=== PATIENT | male | born 1950 | race Caucasian/White ===

== ENCOUNTER 2018-07-29 08:58 | Day surgery (SDC) | payer MEDICARE, OTHER, SELFPAY ==
[2018-07-29 09:42] VITALS: BP 141/85; PULSE 78; RESP 15; TEMP 36.3; O2SAT 98; BMI 41.1
[2018-07-29] MEDS: SODIUM CHLORIDE 0.9% 1,000 ML 200 ML IV (09:55)
--- NOTE | 2018-07-29 11:13 | P.HP_ITS ---
History of Present Illness Date Patient Seen: 07/29/18 Time Patient Seen: 11:11 Chief complaint: [id number] SCREENING COLONOSCOPY Narrative: Patient is gentleman whose last colonoscopy was 10 years ago. He thinks he had a polyp removed at his 1st colonoscopy prior to that. He is not certain the nature of the pathology except it was benign. No family history of colon cancer. Patient History Medical History Obstructive sleep apnea of adult (Chronic) Morbid obesity with BMI of 40.0-44.9, adult (Chronic) Hypertension (Chronic) Knee pain, chronic (Chronic) Type 2 diabetes mellitus (Chronic) Surgical History History of gastric bypass (Acute) History of hernia repair (Acute) Social History marital status: details: salma Overton, lives in [place] household members: spouse lives independently: Yes caregiver/support person: No housing: house Family & Social History Social History: household members spouse lives independently Yes caregiver/support person No Meds Home Medications Medication Instructions Recorded Confirmed Type Respironics [employer] Auto CPAP #1 ea 06/10/18 History Multi-Day with Iron 1 tab PO DAILY 07/29/18 07/29/18 History acetaminophen [Tylenol] 325 mg PO BID 07/29/18 07/29/18 History cholecalciferol (vitamin D3) 5,000 unit PO DAILY 07/29/18 07/29/18 History [Vitamin D3] cyanocobalamin (vitamin B-12) 2,500 mcg SUBLINGUAL WEEKLY 07/29/18 07/29/18 History [Vitamin B-12] lisinopril-hydrochlorothiazide 1 tab PO DAILY 07/29/18 07/29/18 History ranitidine HCl 150 mg PO BID 07/29/18 07/29/18 History sitagliptin-metformin [Janumet] 1 tab PO BID 07/29/18 07/29/18 History tamsulosin 0.4 mg PO DAILY 07/29/18 07/29/18 History Allergies Allergy/AdvReac Type Severity Reaction Status Date / Time No Known Drug Allergies Allergy Verified 07/29/18 09:33 Review of Systems Review of Systems All systems reviewed & are unremarkable except as noted in HPI and below Cardiovascular Comments: Has hypertension and elevated cholesterol Genitourinary Comments: Frequency Musculoskeletal Comments: Knee arthritis Endocrine Comments: Type 2 diabetes with morbid obesity sugar this morning is 136 Exam Vital Signs (past 8 hours): - 07/29/18 09:42 Temperature 97.3 F L Pulse Rate 78 Respiratory Rate 15 Blood Pressure 141/85 H Pulse Oximetry 98 Oxygen Delivery Method Room Air Narrative Exam Narrative: Obese gentleman no apparent distress. Eyes nonicteric. Lungs clear to auscultation. Heart regular rate and rhythm without murmur gallop. Abdomen is morbidly protuberant soft. There is a midline scar with a broad scar. Abdomen is nontender no obvious mass. Alert and oriented x3. Assessment & Plan Assessment & Plan narrative: Patient is a gentleman for screening colonoscopy. I have discussed the procedure and the rationale with the patient including risks of bleeding, perforation which would necessitate a major operation, failure to find remove all lesions and the potential to tattoo. They appeared to understand and wished to proceed.
--- NOTE | 2018-07-29 11:13 | PM.PREOP ---
Pre-operative Note Interval Note History & Physical reviewed/Exam performed by Physician: Yes Changes to H&P: No
[2018-07-29] MEDS: fentaNYL 250 MCG/5 ML INJ IV (11:25)
[2018-07-29] MEDS: MIDAZOLAM 5 MG/5 ML VIAL IV (11:26)
--- NOTE | 2018-07-29 11:44 | PM.OP.ENDO ---
Operative Date/Time/Diagnoses Date of procedure: 07/29/18 Time of procedure: 11:44 Pre-op diagnosis: Screening exam. Last exam 10 years ago. Post-op diagnosis: same (Normal examination except scarring on internal hemorrhoids. No active disease.) Procedure & Clinicians Study performed: Colonoscopy Same procedure as scheduled: Yes Indications: Screening Surgeon: Ricco Burns Procedure Notes SCOAP/Timeout: Performed Procedure in detail: The patient was placed in the left lateral decubitus position and underwent IV sedation directed by the surgeon consisting of fentanyl and Versed. Digital exam was unremarkable. The scope was inserted and advanced through the rectum into the sigmoid, descending, transverse, and ascending colon. Pressure was applied we made our way into the cecum. The cecum was reached identified by the ileocecal valve and the appendiceal opening. Just distal to the ileocecal valve there was a submucosal mass that was soft and pliable clinically consistent with lipoma. The scope was gradually brought out. No Polyps were found. The scope ultimately was retroflexed in the rectum. The appearance was remarkable for mild hemorrhoidal disease with scarring. No active ulcerations.. The scope was removed and the patient tolerated the procedure well. Prep was very good Scope withdrawal time: 7 min Sedation minutes: 20 Findings: internal hemorrhoids (Small) and other findings (Lipoma a near the cecum) Specimen(s): none sent Complications: none Recommendations: Colonscopy in 10 years Follow up: as needed Disposition: PACU
[2018-07-29 11:47] VITALS: BP 129/72; PULSE 94; RESP 16; TEMP 36.3; O2SAT 96
[2018-07-29 11:52] VITALS: BP 128/72; PULSE 79; RESP 14; O2SAT 96
[2018-07-29 11:57] VITALS: BP 123/65; PULSE 82; RESP 16; TEMP 36.3; O2SAT 97
== END 2018-07-29 12:17 | disposition home or self-care (01) ==
PROVIDERS: Family Provider Physician Assistant; PCP Physician Assistant; Visit Provider Specialist
PROC: 0DJD8ZZ Inspection of Lower Intestinal Tract, Via Natural or Artificial Opening Endoscopic (ICD-10-PCS; CPT 45378; principal; 2018-07-29 10:45)
DX: Z12.11 Encounter for screening for malignant neoplasm of colon (principal); K64.8 Other hemorrhoids; D17.79 Benign lipomatous neoplasm of other sites; G47.33 Obstructive sleep apnea (adult) (pediatric); I10 Essential (primary) hypertension; E11.9 Type 2 diabetes mellitus without complications; E66.01 Morbid (severe) obesity due to excess calories; Z68.41 Body mass index [BMI] 40.0-44.9, adult
CPT/HCPCS: G0121; 99152; J2250; J3010

== ENCOUNTER → 2021-09-08 07:41 | Outpatient (CLI) | payer MEDICARE, OTHER, SELFPAY ==
[2021-09-08 08:36] LABS: Add Manual Diff / Slide Review NO; Basophils Absolute Auto 0 /uL (0-100); Basophils Percent Auto 0.2 % (0-2); Eosinophils Absolute Auto 400 /uL (0-450); Eosinophils Percent Auto 6.6 % (2-4); Hematocrit 39.5 % (41-53); Hemoglobin 13.3 g/dL (13.5-17.5); Lymphocytes Absolute Auto 1300 /uL (1100-4500); Mean Corpuscular HGB Conc 33.6 % (30-36); Mean Corpuscular Hemoglobin 30.6 PG (26-34); Mean Corpuscular Volume 91.1 fL (80-100); Monocytes Absolute Auto 500 /uL (0-900); Monocytes Percent Auto 8.1 % (3-14); Neutrophils Absolute Auto 3500 /uL (1500-7000); Neutrophils Percent Auto 62.1 % (50-75); Platelet Count 283 X10^3/uL (150-400); Red Blood Cell Count 4.33 X10^6/uL (4.5-5.9); Red Cell Distribution Width 14.5 % (11.6-14.8); White Blood Cell Count 5.7 X10^3/uL (4.5-11.0)
[2021-09-08 08:52] LABS: BUN Creatinine Ratio 18.5 (6-22); Blood Urea Nitrogen 17 mg/dL (9-20); Calcium 9.3 mg/dL (8.4-10.2); Carbon Dioxide 31 mmol/L (22-32); Chloride 101 mmol/L (98-107); Estimated Glomerular Filt Rate > 60 mL/min (>60); Glucose 142 mg/dL (80-110); HEMOLYSIS < 15 (0-50); Potassium 4.4 mmol/L (3.4-5.1); Sodium 140 mmol/L (137-145)
[2021-09-08 08:57] LABS: Hemoglobin A1C% w Est Avg Glu 6.6 % (4.0-6.0)
[2021-09-08 10:28] LABS: Appearance Urine UA CLEAR; Bilirubin Urine UA NEGATIVE (NEGATIVE); Color Urine UA YELLOW; Glucose Urine UA NEGATIVE (Negative); Ketones Urine UA NEGATIVE (NEGATIVE); Leukocyte Esterase Urine UA 1+ (NEGATIVE); Nitrite Urine UA NEGATIVE (Negative); Occult Blood Urine UA 1+ (Negative); Protein Urine UA NEGATIVE (Negative); pH Urine UA 6.5 (4.5-8.0)
[2021-09-08 11:07] LABS: RBC Urine 5-10/HPF (0-5/HPF); WBC Urine 1-5/HPF (0-5/HPF)
[2021-09-08 11:08] LABS: Bacteria Urine Few (2-10); Culture Indicated Urine Specimen Cultured
== END ==
PROVIDERS: Family Provider Physician Assistant; Referring Provider Orthopaedic Surgery; Visit Provider Orthopaedic Surgery
DX: Z01.818 Encounter for other preprocedural examination (principal); R73.9 Hyperglycemia, unspecified; Z01.812 Encounter for preprocedural laboratory examination; N39.0 Urinary tract infection, site not specified
CPT/HCPCS: 36415; 80048; 81001; 83036; 85025; 87086; 93005; 93010

== ENCOUNTER → 2021-12-01 09:53 | Outpatient (CLI) | payer MEDICARE, OTHER, SELFPAY ==
[2021-12-01 10:28] LABS: COVID19 -Nasal RAPID Negative (Negative)
== END ==
PROVIDERS: Family Provider Physician Assistant; PCP Nurse Practitioner Family; Referring Provider Physician Assistant Medical; Visit Provider Orthopaedic Surgery
DX: Z20.822 Contact with and (suspected) exposure to COVID-19 (principal); Z11.59 Encounter for screening for other viral diseases
CPT/HCPCS: 87635; C9803

== ENCOUNTER 2021-12-03 14:14 | Observation (INO) | payer MEDICARE, OTHER, SELFPAY ==
[2021-11-26 08:47] VITALS: BMI 39.2
[2021-12-02] VITALS (11 sets, daily range): BP systolic 106–149; BP diastolic 46–78; PULSE 69–90; RESP 14–24; TEMP 36.1–36.9; O2SAT 94–100; BMI 39.2
--- NOTE | 2021-12-02 07:42 | DI.RAD.S_ITS ---
PROCEDURE: XR PELVIS 1-2V INDICATIONS: Left RY, posterior approach INNER OP TECHNIQUE: Intra-operative view of the pelvis and hip acquired. COMPARISON: None. FINDINGS: Bones: Intraoperative devices prior to placement of arthroplasty prostheses are in expected positions. No fractures or suspicious bony lesions. Soft tissues: Overlying surgical retractors are present, along with other intraoperative changes. IMPRESSION: Left hip intra device in expected position during placement of left hip arthroplasty. Dictated by: Samir MAK Interpreted: Corina Castillo MD on 12/02/2021 at 15:41 Transcribed by: CHIDI on 12/02/2021 at 15:41 Approved by: Corina Castillo M.D. on 12/04/2021 at 7:35
[2021-12-02] MEDS: VANCOMYCIN 1,000 MG/200 ML PIGGYBACK 200 MG IV (09:55)
[2021-12-02] MEDS: ACETAMINOPHEN 325 MG TABLET 975 MG PO (10:00)
[2021-12-02] MEDS: LACTATED RINGERS 1,000 ML 84 ML IV (10:04)
[2021-12-02] MEDS: CELECOXIB 200 MG CAPSULE PO (10:07)
--- NOTE | 2021-12-02 10:30 | PM.PREOP ---
Pre-operative Note COVID-19 COVID-19 status: Negative Interval Note History & Physical reviewed/Exam performed by Physician: Yes Changes to H&P: No
--- NOTE | 2021-12-02 10:31 | PM.OP.1 ---
Operative Date/Time/Diagnoses Date of procedure: 12/02/21 Time of procedure: 11:20 Pre-op diagnosis: LEFT hip OA Post-op diagnosis: same Procedure & Clinicians Same procedure as scheduled: Yes Anesthesia Type: General and Spinal Operative Notes Findings: Severe left hip osteoarthritis, adequate stability, adequate bone Closure Type: primary Specimen(s): none sent Prosthetic devices, grafts, tissues, transplants, or devices: Ledesma and nephew 62 mm cup R3, neutral 40 liner, 40 mm +0 cobalt chrome head, size 10 standard offset anthology Applied: drain(s) Estimated Blood Loss (mL): 250 Blood products transfused: none Procedure in detail: The patient was seen in the pre-operative area, where the patient identified the left hip as the operative site and this was marked with my initials. The patient received pre-operative antibiotics and was taken to the operating room and placed on the operative table in the right lateral decubitus position after satisfactory anesthesia. A boiler operator helper out was performed. The left leg was prepared from the ankle to the iliac crest with ChloroPrep in the usual fashion and draped through sterile drapes. The hip was approached through an approximately 20 cm incision centered over the greater trochanter and curving gently posteriorly as it went proximally. This was carried sharply to the fascia chauncey, which was divided and retracted with a self retaining retractor. The trochanteric bursa was excised with care being taken to avoid the sciatic nerve, which was identified and protected throughout the case. The short external rotators were incised and the capsulomuscular flap was raised and tagged for later repair. The hip was dislocated, and a femoral neck osteotomy performed approximately 15 mm above the lesser trochanter. Retractors were placed around the femur. The canal was opened with a box cutting osteotome, followed by a T handled reamer and a lateralizing reamer. The chili pepper broach was then used, followed by sequential broaching until there was good stability of the broach in the femur. Retractors were placed to expose the acetabulum. The labrum and central soft tissues were removed. Reaming was performed initially going up in 2 mm increments, then 1 mm increments until good bite was obtained with an odd sized reamer. The cup 1 mm larger than the last reamer was then inserted using the appropriate anteversion guides. A trial neutral liner was placed. The broach was placed in the canal. A trial head and neck were then placed and the hip relocated and checked for leg length and stability. An intraoperative film confirmed the component position and no evidence of fracture. The patient was stable in the position of sleep, of squatting, and could be put through a range of motion with 45 degrees internal rotation without dislocation. At 90 degrees flexion, internal rotation to 70 degrees was possible before dislocation. This was felt to be satisfactory and the appropriate components were opened, and the trials were removed. The acetabular liner was impacted into position. The final stem was then impacted into the prepared femoral canal. A brief Betadine soak was performed while trialing with head options. The hip was meticulously irrigated with normal saline. Finally the femoral head was impacted onto the stem. The acetabulum was cleared of all material and the hip relocated one final time. The capsulomuscular flap was then repaired to the greater trochanter though an awl hole using the tag sutures. The short external rotators were repaired with a nonabsorbable suture. A deep drain was placed and brought out anteriorly. The fascia chauncey was closed with Vicryl. The subcutaneous layer was closed with barbed sutures and SteriStrips. An Aquacel Ag dressing was applied and the patient was taken to recovery having tolerated the procedure well. Complications: none Post-operative Condition: stable Disposition: Acute Care Plan for aftercare: The patient will be maintained on a standard total hip replacement protocol with weight bearing as tolerated and posterior hip precautions. The patient will receive Aspirin and sequential compression devices for DVT prophylaxis. The patient will be discharged home when safe for the home environment.
[2021-12-02] MEDS: TRANEXAMIC ACID 1,000 MG VIAL 2000 MG INJ (11:20)
[2021-12-02] MEDS: CEFAZOLIN 2 GM/20 ML SYRINGE IV ×2 (11:22→18:22)
[2021-12-02] MEDS: EPINEPHrine 1 MG/ML TOP (11:50)
--- NOTE | 2021-12-02 11:53 | SUR.OPER ---
Lateral with right side down on padded OR bed. Gel axillary roll. Arms secured on padded armboard with pillow supporting top arm. Padded hip positioner braces x4 - anterior and posterior chest and pelvis. Additional gel pad used anterior pelvis. Gel pad under bottom leg from knee to foot and secured with tape over sheet. Directed and approved by surgeon. Shoulder and neck alignment approved by anesthesia
[2021-12-02] MEDS: BUPIVACAINE 0.5% (PF) 30 ML, EPINEPHrine 0.15 MG INJ (11:59)
[2021-12-02] MEDS: BUPIVACAINE LIPOSOME 266 MG/20 ML VIAL INJ (12:45)
--- NOTE | 2021-12-02 13:30 | DI.RAD.S_ITS ---
PROCEDURE: XR HIP W PEL IF DONE LT 2V INDICATIONS: POST OP LEFT HIP TECHNIQUE: 2 view(s) of the hip acquired. COMPARISON: Same-day pelvis radiograph, 09/05/2021 radiograph FINDINGS: Bones: Patient is status post left hip arthroplasty, with hardware components in expected positions. The hip joint appears congruent. The visualized bony structures appear intact. Soft tissues: Overlying postoperative changes are noted. No suspicious soft tissue densities. Surgical clips project over the groin. IMPRESSION: Status post left hip arthroplasty with expected postoperative changes. Dictated by: Pablito Frederick M.D. on 12/02/2021 at 15:50 Approved by: Pablito Frederick M.D. on 12/02/2021 at 15:52
--- NOTE | 2021-12-02 13:40 | SUR.PHASEI ---
Yadi drain not displaying a flashing green light as expected, only an orange flashing light. Had OR staff and IZAIAH Riojas for Dr Ledesma assess drain. Per Shine, YADI drain possibly is not sealing well due to the presence of a hemovac drain. No new orders but IZAIAH Riojas states he will assess patient when he is transferred to the inpatient room. Patient in no distress.
[2021-12-02] MEDS: LACTATED RINGERS 1,000 ML 125 ML IV ×2 (14:39→23:15)
--- NOTE | 2021-12-02 15:01 | PC.NURSE ---
Pt to room 218 via bed from PACU. Pt awake, alert, and oriented. Denies pain, nausea, or shortness of breath. States he still has numbness to his left leg although he is able to wiggle his toes and has cold sensation to his left hip surgical site where the ice pack has been place. YADI dsg is intact but is blinking orange-checked dsg and no obvious leak areas. HV in place and compressed. BG checked -208. Pt is having a snack. Oriented to room, call light, bed controls and tv controls. Urinal at the bedside. IVF infusing as ordered. SCD's on and running. VS are stable. Contacted RT to set up Pt CPAP and they performed IS training as well. Pt bed alarm is on and he is aware that he is to call for assistance as needed and to not get up without help.
[2021-12-02] MEDS: OXYCODONE IR 5 MG TABLET PO ×2 (16:54→21:27)
[2021-12-02] MEDS: SITAGLIPTIN 50 MG TABLET PO (16:55)
[2021-12-02] MEDS: METFORMIN HCL 500 MG TABLET 1000 MG PO (16:55)
[2021-12-02] MEDS: IBUPROFEN 400 MG TABLET PO ×2 (18:21→23:16)
[2021-12-02] MEDS: ACETAMINOPHEN 325 MG TABLET 650 MG PO ×2 (18:22→23:15)
--- NOTE | 2021-12-02 18:50 | PC.NURSE ---
Ortho: Received from PACU. Minimal pain. YADI not functioning on arrival. Light is flashing orange. Pamela SHELBY assessed same, did some retaping. Still flashing orange. IZAIAH Agustin here who looked at site. He will bring a new set up tomorrow for the YADI and change it then. Pt is able to move toes. Oxy given for pain and effective. Has been able to void x1 since surgery. neurovascular intact. Brisk cap refill, PPP. Tolerated dinner w/out problems.
[2021-12-02] MEDS: DOCUSATE 100 MG CAPSULE PO (21:27)
[2021-12-02] MEDS: ASPIRIN EC 81 MG TABLET PO (21:27)
[2021-12-02] MEDS: PANTOPRAZOLE DR 20 MG TABLET PO (21:27)
[2021-12-02] MEDS: ATORVASTATIN 20 MG TABLET PO (21:27)
[2021-12-02] MEDS: TAMSULOSIN 0.4 MG CAPSULE PO (21:27)
[2021-12-03 00:21] VITALS: BP 98/55; PULSE 89; RESP 18; TEMP 36.6; O2SAT 97
[2021-12-03 04:00] VITALS: BP 103/45; PULSE 74; RESP 18; TEMP 36.6; O2SAT 96
[2021-12-03] MEDS: CEFAZOLIN 2 GM/20 ML SYRINGE IV (04:00)
[2021-12-03 06:31] LABS: Hematocrit 28.6 % (41-53); Hemoglobin 9.7 g/dL (13.5-17.5)
[2021-12-03] MEDS: ACETAMINOPHEN 325 MG TABLET 650 MG PO ×2 (06:34→13:10)
[2021-12-03] MEDS: IBUPROFEN 400 MG TABLET PO ×2 (06:34→13:00)
--- NOTE | 2021-12-03 07:30 | P.DS_ITS ---
History of Present Illness History of Present Illness Date Patient Seen: 12/03/21 Time Patient Seen: 07:30 Chief complaint: Left hip pain Narrative: Left hip pain is been mild. Denies fever or chills. No nausea vomiting. Patient urinating on his own. Patient has his home for assistance. Discharge Providers Provider Discharge Date: 12/03/21 Primary care physician: LUIS FERNANDO Lambert Consults: 12/02/21 07:42 Consult to Anesthesiology Routine Comment: Consulting Provider: Anesthesiologist Reason for consultation: Regional block for post operative pain control 12/02/21 10:00 Consult to Respiratory Therapy Evaluate & Treat Comment: Physician Instructions: Evaluate and treat 12/02/21 13:52 Consult to Discharge Planning Routine Comment: Consult to Physical Therapy Evaluate & Treat Comment: Physician Instructions: post op RY protocol Consult to Respiratory Therapy Evaluate & Treat Comment: Physician Instructions: Evaluate and treat Discharge provider: Shine Agustin PA-C Summary Hospital Course Discharge Diagnosis: Left hip osteoarthritis Hospital Course: Same procedure as scheduled: Yes Anesthesia Type: General and Spinal Operative Notes Findings: Severe left hip osteoarthritis, adequate stability, adequate bone Closure Type: primary Specimen(s): none sent Prosthetic devices, grafts, tissues, transplants, or devices: Ledesma and nephew 62 mm cup R3, neutral 40 liner, 40 mm +0 cobalt chrome head, size 10 standard offset anthology Applied: drain(s) Estimated Blood Loss (mL): 250 Blood products transfused: none Procedure in detail: Patient admitted to the hospital for left total hip arthroplasty, posterior approach. Patient consented to the same. Patient underwent left total hip arthroplasty December 02, 2021. Patient back in his room recovering well as in stable condition. Patient will be discharged home today after physical therapy if safe for home environment. Status at Discharge Cognitive/behavioral status at discharge: at baseline, oriented Functional status at discharge: uses cane/walker Overall status at discharge: patient is progressing back to baseline Exam Vital Signs (past 8 hours): - 12/03/21 00:21 12/03/21 04:00 Temperature 97.9 F 97.9 F Pulse Rate 89 74 Respiratory Rate 18 18 Blood Pressure 98/55 L 103/45 L Pulse Oximetry 97 96 Oxygen Flow Rate 0 0 Oxygen Delivery Method Room Air Oxygen Flow Rate 0 Narrative Exam Narrative: 71-year-old male resting comfortably in bed no apparent distress. Britney dressing is on and functioning. Dressing is Clean, dry, intact.. Motor functions intact bilateral lower extremities. Sensation grossly intact to light touch bilateral lower extremities. Const General: cooperative and comfortable Resp Effort & Inspection: normal respiratory effort and able to speak in complete sentences Objective Labs Result Diagrams: 12/03/21 06:25 Labs: Laboratory Results - last 24 hr 12/03/21 06:25 Hgb 9.7 L Hct 28.6 L PFSH Medical History Diabetes Diminished hearing Easy bruisability GERD (gastroesophageal reflux disease) HLD (hyperlipidemia) Hypertension Knee pain, chronic Morbid obesity with BMI of 40.0-44.9, adult Obesity (BMI 30-39.9) Obstructive sleep apnea of adult Osteoarthritis Peptic ulcer (2006) Sinus drainage Type 2 diabetes mellitus Surgical History H/O vasectomy (1977) History of gastric bypass (1989) History of hernia repair History of orthopedic surgery History of surgery (2010) Hx of cardiac cath (2013) Hx of cholecystectomy (1989) Hx of tonsillectomy Social History marital status: details: salma Overton, lives in [place] household members: spouse lives independently: Yes caregiver/support person: No housing: house Smoking Status: Former smoker alcohol intake: former Discharge Assessment & Plan Assessment and Plan Assessment: Patient progressing as expected status post left total hip arthroplasty, posterior approach Plan of Treatment: Mobilize with physical therapy Weight-bearing as tolerated with posterior hip precautions Multimodal pain management Disposition home after physical therapy if safe for home environment. Discharge Plan Discharge Plan Patient Disposition: Home Discharge orders & Medications Discharge Orders: Discharge (Order); Ordered 12/03/21 Ordered By: Shine Agustin Prescriptions: New acetaminophen 325 mg Tablet 650 mg PO Q6HR Qty: 60 0RF aspirin 81 mg Tablet,Delayed Release (Dr/Ec) 81 mg PO BID Qty: 60 0RF ibuprofen 400 mg Tablet 400 mg PO Q6HR Qty: 60 0RF docusate sodium 100 mg Capsule 100 mg PO BID Qty: 20 0RF oxycodone 10 mg Tablet 10 mg PO Q3HR PRN (Reason: Pain, Severe (7-10)) Qty: 60 0RF Continued (DME) [employer] AirSense Auto CPAP Qty: 1 Dose Instruction: As directed Label Comments: Pressure: 8 - 16 cmH2O DME: [employer] Rx Instructions: As directed cyanocobalamin (vitamin B-12) [Vitamin B-12] 2,500 mcg Tablet, Sublingual 2,500 mcg SUBLINGUAL WEEKLY tamsulosin 0.4 mg Capsule 0.4 mg PO BEDTIME lisinopril-hydrochlorothiazide 10-12.5 mg Tablet 1 tab PO DAILY Janumet 50-1,000 mg Tablet 1 tab PO BID cholecalciferol (vitamin D3) [Vitamin D3] 5,000 unit Tablet 5,000 unit PO DAILY loperamide 2 mg Tablet 2 mg PO DAILY PRN (Reason: Diarrhea) Rx Instructions: administer after each loose stool until symptoms controlled; do not exceed 8 mg per 24 hrs lidocaine 5 % Adhesive Patch,Medicated 1 patch TOPICAL DAILY Rx Instructions: leave on most painful area for up to 12 hrs ferrous sulfate 324 mg (65 mg iron) tablet,delayed release (DR/EC) 324 mg PO DAILY atorvastatin 20 mg tablet 20 mg PO DAILY omeprazole 20 mg capsule,delayed release(DR/EC) 20 mg PO BEDTIME Discontinued acetaminophen [Tylenol] 325 mg Tablet 325 mg PO BID diclofenac sodium [Arthritis Pain (diclofenac)] 1 % gel 2 g topical QID PRN (Reason: Pain) Rx Instructions: apply to single elbow, wrist or hand; for hand includes palm/fingers/back of hand Follow up/Referrals: Janet Garcia ARNP [Primary Care Provider] - Cierra Ledesma MD [Physician] - (2 weeks) Diet/Activity/Treatments Diet: Diet as Tolerated Activity: Weight-bearing as tolerated, posterior hip precautions Skin/Wound/Dressing Care Report to your healthcare provider any signs of infection, such as:: chills, fever, increased pain, unusual drainage and unusual redness Dressing: Britney dressing instructions reviewed. Keep clean and dry. Visit Report/Discharge Packet Instructions: DI for Hip Replacement Stand Alone Forms: Surgery Discharge Discharge Data Primary Care Provider: Janet Garcia Attending Provider: Cierra Ledesma Quality VTE Deep Vein Thrombosis/Pulmonary Embolism Present on Admission: No
[2021-12-03 08:00] VITALS: BP 111/47; PULSE 78; RESP 16; TEMP 36.4; O2SAT 98
[2021-12-03] MEDS: OXYCODONE IR 5 MG TABLET PO (08:30)
[2021-12-03 08:31] VITALS: BP 111/47
[2021-12-03] MEDS: lisinopriL 10 MG TABLET PO (08:31)
[2021-12-03] MEDS: FERROUS SULFATE 325 MG TABLET PO (08:32)
[2021-12-03] MEDS: ASPIRIN EC 81 MG TABLET PO (08:32)
[2021-12-03] MEDS: DOCUSATE 100 MG CAPSULE PO (08:32)
[2021-12-03] MEDS: hydroCHLOROthiazide 25 MG TABLET 12.5 MG PO (08:32)
[2021-12-03] MEDS: SITAGLIPTIN 50 MG TABLET PO (08:32)
[2021-12-03] MEDS: METFORMIN HCL 500 MG TABLET 1000 MG PO (08:32)
[2021-12-03] MEDS: CHOLECALCIFEROL (VITAMIN D3) 5,000 UNIT TABLET 5000 UNIT PO (08:41)
--- NOTE | 2021-12-03 09:00 | PT.IIE ---
Current Diagnoses Unilateral primary osteoarthritis, left hip (12/02/21) Surgery Performed Operation Date: 12/02/21 11:30 Actual Procedures p Total Hip Arthroplasty(Left) - Cierra Ledesma MD Surgical History (Last Reviewed 12/03/21 @ 07:32 by Shine Agustin PA-C) H/O vasectomy (1977) History of gastric bypass (1989) History of hernia repair History of orthopedic surgery History of surgery (2010) Hx of cardiac cath (2013) Hx of cholecystectomy (1989) Hx of tonsillectomy Medical History (Last Reviewed 12/03/21 @ 07:32 by Shine Agustin PA-C) Diabetes Diminished hearing Easy bruisability GERD (gastroesophageal reflux disease) HLD (hyperlipidemia) Hypertension Knee pain, chronic Morbid obesity with BMI of 40.0-44.9, adult Obesity (BMI 30-39.9) Obstructive sleep apnea of adult Osteoarthritis Peptic ulcer (2006) Sinus drainage Type 2 diabetes mellitus Physical Therapy Inpatient Evaluation/Re-Eval M1 PT/OT-IP Prior Functional Status Start: 12/03/21 12:14 Freq: NEEDED Status: Active Protocol: Document 12/03/21 09:00 AB (Rec: 12/03/21 12:32 [email or web address]) Medical Review Prior Functional Status Medical History Reviewed Yes Communication able to make needs known Mobility and Gait pt stated that he is modified independent with all mobilities and ambulation without AD indoors but uses a SPC for outdoor mobility Social History Household Members spouse Living Arrangements House Number of Floors (Floors) One Floor Number of Stairs To Enter/Railing? 2 steps without rails to enter the house from the garage Home Environment High Toilet,Walk in Shower, Built-In Shower Seat Home Equipment Front Wheel Walker,Straight Cane,Hand Held Shower,Grab Bars In Shower M2 PT-IP Current Condition Start: 12/03/21 12:14 Freq: NEEDED Status: Active Protocol: Document 12/03/21 09:00 AB (Rec: 12/03/21 12:32 [email or web address]) Physical Therapy Current Condition Current Condition Evaluation Date 12/03/21 Treatment Diagnosis s/p L RY posterior approach; difficulty in walking Onset Date 12/02/21 M3 PT-IP Subjective Start: 12/03/21 12:14 Freq: NEEDED Status: Active Protocol: Document 12/03/21 09:00 AB (Rec: 12/03/21 12:32 AB [id number]) Subjective Physical Therapy Visit Type Type Initial Evaluation Visit Start Time 09:00 Visit Stop Time 10:24 Total Visit Minutes 84 Number of JAVA APPLICATION DEVELOPER Visits 0 Physical Therapy Visit Comments Patient Comments agreeable to do PT M4 PT-IP Mobility and Gait Start: 12/03/21 12:14 Freq: NEEDED Status: Active Protocol: Document 12/03/21 09:00 AB (Rec: 12/03/21 12:32 AB [id number]) PT-Bed Mobility Assessment Supine to Sit Supine to Sit Standby Assistance Sit to Supine Sit to Supine Standby Assistance PT-Transfer Assessment Sit to and From Stand Sit to and from Stand Contact Guard Assistance, Minimal Assistance,1 Person Assistance,Use of Upper Extremities Equipment Transfer Assistive Device Gait Belt,Front Wheeled Walker Orthotic/Prosthetic Devices or Brace: No Transfers Transfer Destination Chair Transfer Technique ambulated Transfer Ability Level of Assist Contact Guard Assistance,1 Person Assistance,Use of Upper Extremities Comments Mobility Comments pt sitting on the chair. spouse in room with pt. educated pt and spouse regarding posterior hip precautions. BP in supine: 117/53. completed sit to stand from the chair CGA and cues for hip precautions. ambulated to the EOB using FWW CGA ~ 12 ft. completed sit to supine SBA and cues. caregiver training conducted. educated spouse on how to use safety belt and how to assist pt. spouse was able to put safety belt on pt. spouse assisted pt with with to stand but pt requiring min A and with unsteady initial standing . instructed to sit back down . educated pt on sit to stand technique. completed sit to stand again CGA and cues. spouse assisted pt to the chair using FWW CGA. educated pt on stair climbing technique. pt stated that he usually hold on to the door frame for support. positioned stool next to a door and attempted up/down step but pt unable. pt sat back on chair. c/o slight dizziness. BP checked: 111/57. informed pt and spouse regarding safety and use of SPC for stair climbing and agreed. spouse assist pt with sit to stand and ambulation towards platform step ~20 ft using FWW CGA . educated spouse on how to provided CUSTOMS AND BORDER PROTECTION INSPECTOR. completed up/down platform step using SPC mod A and cues. pt then stated that he has to sit down and is feeling SOB . asked NAC to pull a chair out. pt rested. BP checked: 102/57. pt completed sit to stand from chair min A and step transfer to w/c using FWW CGA. assisted back to his room. pt transferred to chair using FWW CGA. positioned on chair. call light and table placed within reach. informed pt and spouse that PT will checked back later and will have pt rest at this time . informed nurse regarding decrease in BP. checked back on pt after ~ 1hour 15 min. checked BP: 87/ 50. checked again to confirm: 85/48. informed pt and spouse regarding decrease BP and will not be able to do PT at that time. informed nurse. Gait Assessment Gait Gait Assistance Required: Contact Guard Assist Distance (Feet) 20 Able to Maintain Weight Bearing Status Yes During Gait Assistive Devices Assistive Device Gait Belt,Front Wheeled Walker Orthotic/Prosthetic Devices or Brace: No Gait Deviations General Gait Pattern Antalgic,Decreased Stride Length,Decreased Feet Clearance Factors Limiting Gait Function Factors Limiting Gait Function Decreased Activity Tolerance, Decreased Strength,Difficulty Following Directions,Limited Range of Motion,Pain,Poor Balance,Poor Safety Awareness Stair Climbing Assessment Evaluation Level of Assist On Stairs Moderate Assistance,1 Person Assistance Devices Stair Climbing Assistive Devices Straight Cane Technique/Endurance Stair Climbing Direction Ascend and Descend Stair Climbing Technique Step to Step Number of Steps Climbed 1 Query Text: Stair Climbing Set # Repetitions (reps) 1 PT-Balance Assessment Sitting Balance and Reactions Static Sitting Balance Ability Good Dynamic Sitting Balance Ability Fair Standing Balance and Reactions Static Standing Balance Ability Fair Dynamic Standing Balance Ability Fair Device Used FWW M5 PT-IP Objective Assessments Start: 12/03/21 12:14 Freq: NEEDED Status: Active Protocol: Document 12/03/21 09:00 AB (Rec: 12/03/21 12:32 AB [email or web address]) Orientation Orientation/Cognition Level of Alertness Alert Orientation Name,Place,Situation Language Function Ability No Deficits Noted Safety Awareness Decreased Safety Awareness Memory Description Short Term Impaired Gross Range of Motion Lower Extremity ROM Assessment Within Functional Limits Strength Lower Extremity Strength Hip 4-/5 Knee 4-/5 Coordination Assessment Gross Coordination Gross Coordination WNL Sensation Assessment Sensation Gross Sensation WNL Muscle Tone Muscle Tone WNL Yes M6 PT-IP Treatment Start: 12/03/21 12:14 Freq: NEEDED Status: Active Protocol: Document 12/03/21 09:00 AB (Rec: 12/03/21 12:32 AB [email or web address]) Physical Therapy Treatment Education Education Provided Precautions,Weight Bearing Status,Post-Op Packet,Safety M7 PT-IP Assessment and Plan Start: 12/03/21 12:14 Freq: NEEDED Status: Active Protocol: Document 12/03/21 09:00 AB (Rec: 12/03/21 12:32 AB [email or web address]) PT Summary Assessment and Plan Potential Rehabilitation Potential Fair Status of Condition at Evaluation Evolving Summary Impairments Pain,ROM,Strength,Balance, Coordination,Sensation,Tone, Cognition,Bed Mobility, Transfers,Gait,Activity Tolerance Assessment Summary pt requiring CGA with ambulation using FWW and mod A for stair climbing. caregiver training conducted but further training is needed. pt unable to tolerate much activity with c/o dizziness/ SOB and with decrease in BP. will continue to assess progress. Goals Bed Mobility Goal Independent Transfer Goal Independent,Front Wheeled Walker Gait Goal Independent,Front Wheel Walker Gait Distance 250 Other Goals up/down 2 steps using SPC + CUSTOMS AND BORDER PROTECTION INSPECTOR min A Days to Meet Goals 10 Frequency of Treatment Frequency Of Treatment Twice a Day Treatment Plan Physical Therapy Treatment Plan Bed Mobility Training,Transfer Training,Gait Training, Therapeutic Exercise,Balance Retraining,Post Op Education, Discharge Planning,Hot or Cold Pack,Neuromuscular Re-ed, Coordination Retraining,Manual Therapy Precautions Posterior Hip Precautions No Hip Flexion > 90 degrees,No Hip Internal Rotation,No Hip Adduction Weight Bearing Status Weight Bearing Status Weight Bear as Tolerated Allowed Weight Bearing Amount (enter % LLE WBAT or #) (%) Recommendations To Nursing Amount of Assist Needed 1 Person Assist Discharge Recommendations PT Discharge Recommendations Home with Assistance, Outpatient PT Transportation Needs at Discharge Private Vehicle,Wheelchair/ Cabulance
--- NOTE | 2021-12-03 11:07 | CM.DANOTE ---
DCP/Assessment: Reviewed chart. Patient is a 71yr old male admitted to [facility] for elective Left RY performed by Dr. Ledesma on 12-02. PCP listed is Janet Garcia. Primary payor is 1) Medicare 2) [employer]. Attempted to meet with patient this AM. Patient in process of PT evaluation at time of CM team visit. Spoke with RN whom assumes patient will be medically stable for d/c today without needs. D/C order has been written. P: Home today with outpatient therapy follow up per orthopedic protocol. CM team to available if needs arise. KJS Discharge Planning/Care Management Advanced directive, confirm from FAMILY Start: 12/02/21 14:30 Freq: Q24H Status: Active Protocol: Document 12/02/21 14:30 CM (Rec: 12/02/21 14:31 CM [id number]) Advance Directive, confirm on record Time 14:31 Person contacted Pt Copy received No CM Discharge Assessment Start: 12/03/21 11:04 Freq: Status: Active Protocol: Document 12/03/21 11:04 [facility] (Rec: 12/03/21 11:07 KJS [id number]) Discharge Planning Assessment Assigned Pals Nurse SAMMI Julian Contact Information Brooklynn Anna (spouse) ph# Advance Directives? Yes Advance Directives on File No History Provided By Medical Record Prior Living Arrangements House Household Members spouse Independent with ADL's Yes: Per notes Is patient alert and oriented? Yes: Per notes Caregiver for Another No DME Already Rented / Owned FWW / Walker Barriers to Discharge No Discharge Plan Home Transportation Arrangement Family to provide transportation. Referrals Initiated None needed Additional Comment None needed at this time. Review Status In Process Next Review Type Continued Stay Review Pre-Anesthesia Assessment Start: 11/26/21 08:47 Freq: Status: Complete Protocol: Document 11/26/21 08:47 CAB (Rec: 11/26/21 09:36 CAB [id number]) Pre-Anesthesia Assessment Preferred Name Jasiel Patient Information Reviewed Via Phone Assessment Assessment Completed With Patient Diagnostic Results BMP/CMP,CBC,EKG Comment Labs/ECG @ [facility] 09/08/21, COVID screen @ [facility] 12/01/21 Primary Care Provider Janet Garcia Seen Specialist in Last 12 Months Yes Specialist Seen Communications Department Chairperson,Orthopedist, Direct Care Provider,Sleep specialist, Urologist Primary Language Ghanaian Fumigator And Sterilizer Required No Height 172.72 cm Weight 117.027 kg Body Mass Index (BMI) 39.2 Hearing Ability Hard of Hearing Visual Assist Glasses Dentition Type Teeth, Natural Present,Teeth, Missing Barriers to Learning None Comment Diminished hearing in left ear Hx Anesthesia Reactions Yes: They had trouble getting the tube down my throat for peptic ulcer Hx Family Anesthesia Reaction No Hx Malignant Hyperthermia No Hx Blood Transfusions Yes: Peptic ulcer 2006 Hx Blood Transfusion Reaction No Anesthesia Review Requested No alcohol intake former Smoking Status Former smoker how long ago did patient quit smoking Quit 1980 Substance Use Type does not use Pain Present Pain Reported Musculoskeletal Symptoms Abnormal Gait,Difficulty Walking,Joint Pain History of Falling (Recent or History of Yes ) Patient is completely paralyzed or No completely immobile Prosthesis or Orthotic Device Cane Mental Status Oriented to own ability Is patient on oxygen? No Does patient have OLVERA/SOB No Hx Sleep Apnea Yes CPAP/BIPAP use prescribed and used routinely Currently Taking a Beta Maureen No Can You Climb a Flight of Stairs Without Yes SOB Hx Chest Pain No Hx SOB No Hx Syncope or Dizziness No Anti-Coagulant Therapy No Has a Can Washer No Cardiac Testing No Hx Pacemaker/ICD No Pacemaker Rep Required? No Diet Type At Home Regular dysphagia No Gastrointestinal Symptoms Diarrhea,Reflux Bladder Pattern Urgency Urinary Catheter Present No Hx Urinary Self Catheterization No Diabetes Yes: Pt checks blood sugar twice a day HgbA1C 6.6 Date 09/08/21 Hx Drug Resistant Organism No Presence of External or Internal Medical Yes: CPAP Devices Have you had any close contact with No someone diagnosed with COVID-19? Received a COVID vaccine? Yes Received all doses? Yes Marital Status Lives With spouse Prior Living Arrangements House Number of Floors (Floors) One Floor Support System Spouse Does the Patient Have Assistance After Yes Surgery Patient Discharge Plan Description Return Home Comment Pt advised overnight length of stay per surgeon Feels Safe in Current Environment Yes Been Physically Hurt or Threatened By a No Person in Current Environment Do you have thoughts of harming yourself None or others? Are you currently considering suicide? No Do you have a plan to hurt yourself or No Plan others? Do You Have Any Spiritual Beliefs That No May Affect Your HC Choices? Do You Have Any Cultural Practices That No May Affect Your HC Choices? Who Can We Speak to About Patient's Care Family, friends Identifying Code for Release of Patient Declines to issue Information Health Care Proxy/Next of Kin Brooklynn () Health Care Proxy Emergency Contact Name Brooklynn () Emergency Contact Advance Directives? Yes Advance Directives on File No Requested Patient Bring Advanced Yes Directives DOS Power of Energy Audit Advisor No PAC Instructions Bring CPAP/BIPAP,Diabetes instructions,Durable medical equipment,Medications to take/ avoid,Nasal antibiotic,No ETOH /petroleum product on skin DOS ,NPO,Post-op transportation, Pre-surgical wash,Sturdy shoes /comfortable clothes,Do not bring valuables and remove jewelry
[2021-12-03 12:20] VITALS: BP 96/54; PULSE 83; RESP 16; TEMP 36.6; O2SAT 99
--- NOTE | 2021-12-03 14:28 | PT.IPTN ---
Current Diagnoses Unilateral primary osteoarthritis, left hip (12/03/21) Surgery Performed Operation Date: 12/02/21 11:30 Actual Procedures p Total Hip Arthroplasty(Left) - Cierra Ledesma MD Physical Therapy Treatment Note M2 PT-IP Current Condition Start: 12/03/21 12:14 Freq: NEEDED Status: Active Protocol: Document 12/03/21 09:00 AB (Rec: 12/03/21 12:32 AB [id number]) Physical Therapy Current Condition Current Condition Evaluation Date 12/03/21 Treatment Diagnosis s/p L RY posterior approach; difficulty in walking Onset Date 12/02/21 M3 PT-IP Subjective Start: 12/03/21 12:14 Freq: NEEDED Status: Active Protocol: Document 12/03/21 13:48 KS (Rec: 12/03/21 15:26 KS [id number]) Subjective Physical Therapy Visit Type Type Treatment Note Visit Start Time 13:48 Visit Stop Time 14:28 Total Visit Minutes 40 Notes present for caregiver training. Number of HEALTH ADMINISTRATOR Visits 1 Physical Therapy Visit Comments Patient Comments agreeable to do PT M4 PT-IP Mobility and Gait Start: 12/03/21 12:14 Freq: NEEDED Status: Active Protocol: Document 12/03/21 13:48 KS (Rec: 12/03/21 15:26 KS [id number]) PT-Transfer Assessment Sit to and From Stand Sit to and from Stand Contact Guard Assistance,1 Person Assistance,Use of Upper Extremities Equipment Transfer Assistive Device Gait Belt,Front Wheeled Walker Orthotic/Prosthetic Devices or Brace: No Transfers Transfer Destination Chair Transfer Technique ambulated Transfer Ability Level of Assist Contact Guard Assistance,1 Person Assistance,Use of Upper Extremities Comments Mobility Comments Pt in chair w/ in room upon arrival. BP 97/50 sitting . Pts applied gait belt and provided CGA for pt sit<> stand. Pts BP standing 116/62, he ambulated ~20 ft and BP was then 107/54 but he denied dizziness or lightheadedness. Pt took seated rest break before doing stair training. Upon standing, pts BP was 92/ 62, he ambulated to platform step w/ FWW and completed w/ SPC and hand rail and providing CGA and cues. PA arrived to assess dressing and pt maintained standing balance ~5 min. He then completed additional platform step w/ SPC, hand rail and CGA and returned to chair. Pts BP sitting after treatment 99/55 . Pt and feel safe to return home and pt states his son will be present to help in addition to . Gait Assessment Gait Gait Assistance Required: Contact Guard Assist Distance (Feet) 30 Able to Maintain Weight Bearing Status Yes During Gait Assistive Devices Assistive Device Gait Belt,Front Wheeled Walker Orthotic/Prosthetic Devices or Brace: No Gait Deviations General Gait Pattern Antalgic,Decreased Stride Length,Decreased Feet Clearance Factors Limiting Gait Function Factors Limiting Gait Function Decreased Activity Tolerance, Decreased Strength,Difficulty Following Directions,Limited Range of Motion,Pain,Poor Balance,Poor Safety Awareness Comments Gait Comments Decreased stride and foot clearance, low tolerance for ambulation w/ quick approach to fatigue. Stair Climbing Assessment Evaluation Level of Assist On Stairs Contact Guard Assistance,1 Person Assistance Devices Stair Climbing Assistive Devices Straight Cane Technique/Endurance Stair Climbing Direction Ascend and Descend Stair Climbing Technique Step to Step Number of Steps Climbed 1 Stair Climbing Set # Repetitions (reps) 2 Comments Stair Climbing Comments Pt ascended/descended platform step w/ assisting w/ SPC and use of wall/handrail as he uses door frame at home. Pt able to recall sequencing and feels safe assisting. Pts agrees to set up chair for pt to rest in inside doorway of home d/t pts low activity tolerance followng ambulation and stairs. PT-Balance Assessment Sitting Balance and Reactions Static Sitting Balance Ability Good Dynamic Sitting Balance Ability Fair Standing Balance and Reactions Static Standing Balance Ability Fair Dynamic Standing Balance Ability Fair Device Used FWW M5 PT-IP Objective Assessments Start: 12/03/21 12:14 Freq: NEEDED Status: Active Protocol: Document 12/03/21 09:00 AB (Rec: 12/03/21 12:32 AB [id number]) Orientation Orientation/Cognition Level of Alertness Alert Orientation Name,Place,Situation Language Function Ability No Deficits Noted Safety Awareness Decreased Safety Awareness Memory Description Short Term Impaired Gross Range of Motion Lower Extremity ROM Assessment Within Functional Limits Strength Lower Extremity Strength Hip 4-/5 Knee 4-/5 Coordination Assessment Gross Coordination Gross Coordination WNL Sensation Assessment Sensation Gross Sensation WNL Muscle Tone Muscle Tone WNL Yes M6 PT-IP Treatment Start: 12/03/21 12:14 Freq: NEEDED Status: Active Protocol: Document 12/03/21 13:48 KS (Rec: 12/03/21 15:26 KS [id number]) Physical Therapy Treatment Education Education Provided Precautions,Weight Bearing Status,Post-Op Packet,Safety Other Treatments Other Treatment Performed Completed caregiver training. M7 PT-IP Assessment and Plan Start: 12/03/21 12:14 Freq: NEEDED Status: Active Protocol: Document 12/03/21 13:48 KS (Rec: 12/03/21 15:26 KS [id number]) PT Summary Assessment and Plan Potential Rehabilitation Potential Fair Status of Condition at Evaluation Evolving Summary Impairments Pain,ROM,Strength,Balance, Coordination,Sensation,Tone, Cognition,Bed Mobility, Transfers,Gait,Activity Tolerance Progress Towards Goals Slow Progress due to Activity Tolerance Assessment Summary Pt CGA for mobility and able to provide assist for sit <>stand, ambulation, and stair training. Pt ambulated ~30 ft and ascended/descended platform step w/ SPC and wall w/ providing cues and assist. Pt has quick approach to fatigue following ambulation. BP low, but stable and pt asymptomatic. Pt and feel ready to go home. He will benefit from outpatient PT to improve strength, stability, and gait. Goals Bed Mobility Goal Independent Transfer Goal Independent,Front Wheeled Walker Gait Goal Independent,Front Wheel Walker Gait Distance 250 Other Goals up/down 2 steps using SPC + PARACHUTIST/COMBATANT DIVER QUALIFIED min A Days to Meet Goals 10 Frequency of Treatment Frequency Of Treatment Twice a Day Treatment Plan Physical Therapy Treatment Plan Bed Mobility Training,Transfer Training,Gait Training, Therapeutic Exercise,Balance Retraining,Post Op Education, Discharge Planning,Hot or Cold Pack,Neuromuscular Re-ed, Coordination Retraining,Manual Therapy Precautions Posterior Hip Precautions No Hip Flexion > 90 degrees,No Hip Internal Rotation,No Hip Adduction Weight Bearing Status Weight Bearing Status Weight Bear as Tolerated Allowed Weight Bearing Amount (enter % LLE WBAT or #) (%) Recommendations To Nursing Amount of Assist Needed 1 Person Assist Discharge Recommendations PT Discharge Recommendations Home with Assistance, Outpatient PT Transportation Needs at Discharge Private Vehicle,Wheelchair/ Cabulance
--- NOTE | 2021-12-03 18:44 | PC.NURSE ---
discharge: Pt feels ready to d/c to home now. YADI dressing was replaced, still unable to seal and get suction. PA returned and after adjustments YADI did seal and green light was flashing and still flashing at time of d/c. Pt has some low bp's. Dizzy when up with PT for the first time. Did receive his am bp meds. BP systolic for nursing lowest at 95, for PT was at 85 systolic. Pt was dizzy in the morning but had no sxs this afternoon and decision was made he could go home. Pt is to hold bp meds while his bp remains low per PA, most likely to resolve in a day or two. Pt reports po pain meds effective. RX has been esent. Pt is jorge diet w/out problems. Vds w/out diff. Reviewed d/c packet w/pt and spouse. Questions answered. Pt d/c home via auto with spouse.
== END 2021-12-03 15:30 | disposition home or self-care (01) ==
LOC: OR 14:20 → AC 14:20
PROVIDERS: Admitting Provider Orthopaedic Surgery; Family Provider Physician Assistant; PCP Nurse Practitioner Family; Referring Provider Orthopaedic Surgery; Visit Provider Orthopaedic Surgery
PROC: 0SRB0JZ Replacement of Left Hip Joint with Synthetic Substitute, Open Approach (ICD-10-PCS; CPT 27130; principal; 2021-12-02 11:30)
DX: M16.12 Unilateral primary osteoarthritis, left hip (principal); G47.33 Obstructive sleep apnea (adult) (pediatric); I10 Essential (primary) hypertension; E78.5 Hyperlipidemia, unspecified; E11.9 Type 2 diabetes mellitus without complications; Z79.84 Long term (current) use of oral hypoglycemic drugs; K21.9 Gastro-esophageal reflux disease without esophagitis; E66.01 Morbid (severe) obesity due to excess calories; Z68.39 Body mass index [BMI] 39.0-39.9, adult
CPT/HCPCS: 27130; 36415; 72170; 73502; 82962; 85014; 85018; 97116; 97162; 97530; C1776; G0378; C9290; J0171; J0690; J1100; J2250; J2405; J2704; J3010

== ENCOUNTER → 2022-01-28 12:37 | Outpatient (CLI) | payer MEDICARE, OTHER, SELFPAY ==
[2021-12-02 14:23] VITALS: BMI 39.2
== END ==
PROVIDERS: Family Provider Physician Assistant; PCP Nurse Practitioner Family; Referring Provider Podiatrist; Visit Provider Family Medicine
DX: I87.2 Venous insufficiency (chronic) (peripheral) (principal); L97.822 Non-pressure chronic ulcer of other part of left lower leg with fat layer exposed; L03.116 Cellulitis of left lower limb; E11.622 Type 2 diabetes mellitus with other skin ulcer; E11.40 Type 2 diabetes mellitus with diabetic neuropathy, unspecified; R60.0 Localized edema; L53.9 Erythematous condition, unspecified
CPT/HCPCS: 29580; 87070; 87075; 87077; 87147; 87186; 87205; 99204; 99214

== ENCOUNTER → 2022-01-30 14:09 | Outpatient (CLI) | payer MEDICARE, OTHER, SELFPAY ==
[2021-12-02 14:23] VITALS: BMI 39.2
== END ==
PROVIDERS: Family Provider Physician Assistant; PCP Nurse Practitioner Family; Referring Provider Podiatrist; Visit Provider Nurse Practitioner Family
DX: I87.2 Venous insufficiency (chronic) (peripheral) (principal); L97.822 Non-pressure chronic ulcer of other part of left lower leg with fat layer exposed
CPT/HCPCS: 99213

== ENCOUNTER → 2022-02-04 13:26 | Outpatient (CLI) | payer MEDICARE, OTHER, SELFPAY ==
[2021-12-02 14:23] VITALS: BMI 39.2
== END ==
PROVIDERS: Family Provider Physician Assistant; PCP Nurse Practitioner Family; Referring Provider Nurse Practitioner Family; Visit Provider Family Medicine
DX: I87.2 Venous insufficiency (chronic) (peripheral) (principal); R60.0 Localized edema; L03.116 Cellulitis of left lower limb; B95.7 Other staphylococcus as the cause of diseases classified elsewhere; E11.622 Type 2 diabetes mellitus with other skin ulcer; E11.40 Type 2 diabetes mellitus with diabetic neuropathy, unspecified; L53.9 Erythematous condition, unspecified
CPT/HCPCS: 99213; 99214

== ENCOUNTER → 2022-02-18 13:53 | Outpatient (CLI) | payer MEDICARE, OTHER, SELFPAY ==
[2021-12-02 14:23] VITALS: BMI 39.2
== END ==
PROVIDERS: Family Provider Physician Assistant; PCP Nurse Practitioner Family; Referring Provider Nurse Practitioner Family; Visit Provider Family Medicine
DX: I87.2 Venous insufficiency (chronic) (peripheral) (principal); L97.821 Non-pressure chronic ulcer of other part of left lower leg limited to breakdown of skin; R60.0 Localized edema; L08.9 Local infection of the skin and subcutaneous tissue, unspecified; E11.40 Type 2 diabetes mellitus with diabetic neuropathy, unspecified
CPT/HCPCS: 87070; 87077; 87147; 87186; 87205; 97597; 99213

== ENCOUNTER → 2022-02-25 11:12 | Outpatient (CLI) | payer MEDICARE, OTHER, SELFPAY ==
[2021-12-02 14:23] VITALS: BMI 39.2
== END ==
PROVIDERS: Family Provider Physician Assistant; PCP Nurse Practitioner Family; Referring Provider Podiatrist; Visit Provider Family Medicine
DX: I87.2 Venous insufficiency (chronic) (peripheral) (principal); R60.0 Localized edema; T36.8X5A Adverse effect of other systemic antibiotics, initial encounter; E11.40 Type 2 diabetes mellitus with diabetic neuropathy, unspecified; G47.33 Obstructive sleep apnea (adult) (pediatric)
CPT/HCPCS: 99212; 99213; 99214

== ENCOUNTER 2022-03-01 09:18 | Emergency (ER) | payer MEDICARE, OTHER, SELFPAY ==
[2021-12-02 14:23] VITALS: BMI 39.2
[2022-03-01 09:38] VITALS: BP 130/89; PULSE 71; RESP 24; TEMP 36.8; O2SAT 99
--- NOTE | 2022-03-01 09:49 | DI.RAD.S_ITS ---
PROCEDURE: XR CHEST 1V INDICATIONS: , exertional sob TECHNIQUE: One view of the chest was acquired. COMPARISON: None. FINDINGS: Surgical changes and devices: There are overlying monitoring wires. Lungs and pleura: The patient is lordotic in position. Lung volumes are low. The visible lung renner are clear. No large effusion or pneumothorax. Mediastinum: The heart size is normal. The contour is slightly globular. Aortic contour is normal. No central venous congestion. Bones and chest wall: No suspicious bony lesions. Overlying soft tissues appear unremarkable. IMPRESSION: 1. Slightly globular heart contour but normal size. 2. No radiographic findings of central venous or interstitial congestion. Dictated by: Nenita Madden M.D. on 03/01/2022 at 9:22 Approved by: Nenita Madden M.D. on 03/01/2022 at 9:24
--- NOTE | 2022-03-01 09:49 | DI.US.S_ITS ---
PROCEDURE: US PERIPH VENOUS LOW EXTREM LT INDICATIONS: PAIN, EDEMA, BLISTERING TECHNIQUE: Real-time imaging, as well as color and pulse Doppler interrogation, were performed of the lower extremity deep veins from the inguinal ligament to the popliteal fossa. COMPARISON: None. FINDINGS: The common femoral, femoral and popliteal veins are normally compressible, and free of intraluminal thrombus. Color and pulse Doppler demonstrate normal phasic intraluminal flow. There is normal augmentation response to distal compression maneuver. IMPRESSION: 1. No DVT in the left lower extremity. 2. Preliminary report conveyed by the fine artist to the ordering provider. Dictated by: Nenita Madden M.D. on 03/01/2022 at 10:37 Approved by: Nenita Madden M.D. on 03/01/2022 at 10:38
--- NOTE | 2022-03-01 10:08 | ED.EXTPRO ---
HPI - Extremity Problem General Chief complaint: Extremity Problem,Nontraumatic Stated complaint: Blisters,swelling after hip replament L lower leg Time Seen by Provider: 03/01/22 09:48 Source: patient, family and old records reviewed Mode of arrival: Ambulatory Limitations: no limitations History of Present Illness HPI Narrative: This is a 71-year-old male with history of hypertension, dyslipidemia, non insulin-dependent diabetes with left hip replacement November of 2021 who subsequently developed infection of the lower left anterior savage with blisters, he has been followed with wound care was discharged from wound care about 3 days ago and developed additional blistering which has been persisting for the last few days. Patient states he woke up this morning he felt a little bit dizzy and wobbly while walking around but was able to ambulate through the house. He states he has several blisters on his anterior savage and side which had a new blister this morning. Patient states they have been able to clear the blistering on and off since then with wound care and medicated wraps, he states a week ago the blisters were gone, the redness that is present is significantly better than January when he really started having issues the swelling has improved significantly but has been persistent the redness is but never went away. Denies any new numbness, tingling or weakness in his extremity. He states the incision itself has not had issues. Blisters have drained clear fluid. He states he has not had any chest pain or pressure occasionally has a little bit of exertional shortness of breath, denies nausea or vomiting he is had some constipation with no bowel movements in a day or 2, no dysuria urgency or frequency. Patient did flight [place] February 09 through the , flew back was able to get into his house and then had a ground level fall. Been ambulating on it he had an x-ray with his orthopedic surgeon which was negative. Notes he has been on Augmentin, ampicillin followed by clindamycin. Did have allergic reaction to clindamycin. He has been only using topical antibiotics with silver, Band-Aid and medicated wraps. He states he quit tobacco in 1980, no very rare alcohol, no illicit. Related Data Home Medications Medication Instructions Recorded Confirmed cholecalciferol (vitamin D3) 125 5,000 unit PO DAILY 07/29/18 12/02/21 mcg (5,000 unit) tablet (Vitamin D3) cyanocobalamin (vitamin B-12) 2,500 mcg sublingual WEEKLY 07/29/18 12/02/21 2,500 mcg sublingual tablet (Vitamin B-12) lisinopril 10 1 tab PO DAILY 07/29/18 02/25/22 mg-hydrochlorothiazide 12.5 mg tablet sitagliptin 50 mg-metformin 1,000 1 tab PO BID 07/29/18 02/25/22 mg tablet (Janumet) tamsulosin 0.4 mg capsule 0.4 mg PO BEDTIME 07/29/18 02/25/22 atorvastatin 20 mg tablet 20 mg PO DAILY 01/13/19 02/25/22 omeprazole 20 mg capsule,delayed 20 mg PO BEDTIME 01/12/20 02/25/22 release ResMed AirSense Auto CPAP #1 ea 02/20/21 02/25/22 lidocaine 5 % topical patch 1 patch topical DAILY 11/26/21 02/25/22 loperamide 2 mg tablet 2 mg PO DAILY PRN Diarrhea 11/26/21 02/25/22 ferrous gluconate 324 mg (37.5 mg 324 mg PO DAILY 02/25/22 02/25/22 iron) tablet folic acid 0.8 mg capsule 0.8 mg PO DAILY 02/25/22 02/25/22 vitamins A,C,N-pnlc-qsqkvl 14,320 1 cap PO BID 02/25/22 02/25/22 unit-226 mg-200 unit capsule (PreserVision AREDS) Previous Rx's Medication Instructions Recorded acetaminophen 325 mg tablet 650 mg PO Q6HR #60 tabs 12/03/21 ibuprofen 400 mg tablet 400 mg PO Q6HR #60 tabs 12/03/21 oxycodone 10 mg tablet 10 mg PO Q3HR PRN Pain, Severe 12/03/21 (7-10) #60 tabs prednisone 20 mg tablet 40 mg PO DAILY #10 tabs 03/01/22 Allergies Allergy/AdvReac Type Severity Reaction Status Date / Time clindamycin Allergy Rash Verified 03/01/22 09:42 Review of Systems Review of Systems ROS Unobtainable: All systems reviewed & are unremarkable except as noted in HPI and below Patient History Medical History Diabetes Diminished hearing Easy bruisability GERD (gastroesophageal reflux disease) HLD (hyperlipidemia) Hypertension Knee pain, chronic Morbid obesity with BMI of 40.0-44.9, adult Obesity (BMI 30-39.9) Obstructive sleep apnea of adult Osteoarthritis Peptic ulcer (2006) Sinus drainage Type 2 diabetes mellitus Surgical History H/O vasectomy (1977) History of gastric bypass (1989) History of hernia repair History of orthopedic surgery History of surgery (2010) Hx of cardiac cath (2013) Hx of cholecystectomy (1989) Hx of tonsillectomy Social History marital status: details: salma Overton, lives in [place] household members: spouse lives independently: Yes caregiver/support person: No housing: house Smoking Status: Former smoker alcohol intake: former Smoking Status: Former smoker Substance Use Type: does not use Exam Narrative Exam Narrative: GENERAL: Alert and oriented x three, obese male in mild distress. HEENT: Head normocephalic, atraumatic, EOMI, pupils reactive, face symmetric, moist mucous membranes NECK: Supple, full range of motion CARDIOVASCULAR: Regular rate and rhythm without murmurs, rubs or gallops. No JVD. Mild bilateral lower extremity swelling, slightly worse left compared to right. RESPIRATORY: Breath sounds equal bilaterally, no wheezes rales or rhonchi. No tachypnea, no accessory muscle use. Speaks in full sentences. ABDOMEN: Soft, nontender. Normoactive bowel sounds all 4 quadrants. No guarding or rebound, rigidity, no mass : No CVA tenderness EXTREMITIES: Normal range of motion, no clubbing. Patient has mild left lower swelling extremity patchy erythematous skin jacket changer the anterior savage and medial calf, there several large blisters draining clear fluid with no purulent change. No significant warmth comparison left to right. Patient has cap refills less than 2 seconds bilateral lower extremities with pulses intact. Patient has normal range of motion. Neurovascularly intact. Left hip incision is intact clean and dry. NEUROLOGICAL: Cranial nerves II through XII grossly intact. Moving all extremities SKIN: Warm, dry, no petechiae, no rashes or lesions. Initial Vital Signs Initial Vital Signs: Vital Signs Temperature 98.2 F 03/01/22 09:38 Pulse Rate 71 03/01/22 09:38 Respiratory Rate 24 03/01/22 09:38 Blood Pressure 130/89 03/01/22 09:38 Pulse Oximetry 99 03/01/22 09:38 Oxygen Delivery Method 03/01/22 09:38 Course Orders Ordered: ED Orders 03/01/22 09:49 US periph venous low extrem lt Stat XR chest 1V Stat EKG-12 Lead Stat 03/01/22 10:33 Blood Culture Stat Complete Blood Count AUTO DIFF Stat Comprehensive Metabolic Panel Stat D Dimer Stat Lactate (Lactic Acid) Stat Lipase Stat NT-proBNP (BNP-Adult 18+) Stat Partial Thromboplastin Time Stat Prothrombin Time INR Stat Troponin & CK Cardiac Panel Stat 03/01/22 11:05 Wound Culture and Gram Stain Stat 03/01/22 12:12 CT angio chest PE protocol Stat 03/01/22 12:35 Trop I [Troponin I] Stat Vital Signs Vital signs: Vital Signs - 8 hr 03/01/22 09:38 03/01/22 11:03 03/01/22 13:09 Temperature 98.2 F Pulse Rate 71 72 64 Respiratory Rate 24 20 24 Blood Pressure 130/89 Pulse Oximetry 99 100 100 Oxygen Delivery Method Room Air Room Air 03/01/22 13:10 03/01/22 13:10 Temperature Pulse Rate 62 Respiratory Rate 13 Blood Pressure 131/62 Pulse Oximetry 100 Oxygen Delivery Method MDM - Extremity (Nontraumatic) Lab Data Result diagrams: 03/01/22 10:33 03/01/22 10:33 Labs: Lab Results 03/01/22 03/01/22 03/01/22 Range/Units 10:33 10:33 10:33 WBC 7.1 (4.5-11.0) X10^3/uL RBC 4.34 L (4.5-5.9) X10^6/uL Hgb 12.2 L (13.5-17.5) g/dL Hct 37.6 L (41-53) % MCV 86.7 (80-100) fL MCH 28.1 (26-34) PG MCHC 32.4 (30-36) % RDW 15.6 H (11.6-14.8) % Plt Count 347 (150-400) X10^3/uL Neut % (Auto) 62.1 (50-75) % Lymph % (Auto) 24.4 L (25-40) % [place] % (Auto) 8.7 (3-14) % Eos % (Auto) 4.6 H (2-4) % Baso % (Auto) 0.2 (0-2) % Neut # (Auto) 4400 (6317-2153) /uL Lymph # (Auto) 1700 (7325-0618) /uL [place] # (Auto) 600 (0-900) /uL Eos # (Auto) 300 (0-450) /uL Baso # (Auto) 0 (0-100) /uL PT 12.4 (10.1-12.7) SECONDS INR 1.1 (0.9-1.3) APTT 34 (26-36) SECONDS D-Dimer (<500) ng/ml Sodium 138 (137-145) mmol/L Potassium 4.0 (3.4-5.1) mmol/L Chloride 98 (98-107) mmol/L Carbon Dioxide 28 (22-32) mmol/L BUN 13 (9-20) mg/dL Creatinine 0.89 (0.66-1.25) mg/dL Estimated GFR > 60 (>60) mL/min BUN/Creatinine Ratio 14.6 (6-22) Glucose 126 H (80-110) mg/dL Lactate (0.7-2.1) mmol/L Calcium 9.6 (8.4-10.2) mg/dL Total Bilirubin 0.6 (0.2-1.3) mg/dL AST 21 (17-59) IU/L ALT 21 (<50) IU/L Alkaline Phosphatase 71 (38-126) U/L Total Creatine Kinase 44 L (55-170) U/L CK-MB (CK-2) TNP CK-MB (CK-2) Rel Index TNP Troponin I < 0.012 (0.01-0.034) ng/mL NT-Pro-B Natriuret Pep 27 (<125) pg/mL Total Protein 7.8 (6.3-8.2) g/dL Albumin 4.5 (3.5-5.0) g/dL Globulin 3.3 (1.7-4.1) g/dL Albumin/Globulin Ratio 1.4 (1.0-2.8) Lipase 83 (23-300) U/L 03/01/22 03/01/22 03/01/22 Range/Units 10:33 10:33 12:35 WBC (4.5-11.0) X10^3/uL RBC (4.5-5.9) X10^6/uL Hgb (13.5-17.5) g/dL Hct (41-53) % MCV (80-100) fL MCH (26-34) PG MCHC (30-36) % RDW (11.6-14.8) % Plt Count (150-400) X10^3/uL Neut % (Auto) (50-75) % Lymph % (Auto) (25-40) % [place] % (Auto) (3-14) % Eos % (Auto) (2-4) % Baso % (Auto) (0-2) % Neut # (Auto) (6833-4559) /uL Lymph # (Auto) (9253-3589) /uL [place] # (Auto) (0-900) /uL Eos # (Auto) (0-450) /uL Baso # (Auto) (0-100) /uL PT (10.1-12.7) SECONDS INR (0.9-1.3) APTT (26-36) SECONDS D-Dimer 1572 H (<500) ng/ml Sodium (137-145) mmol/L Potassium (3.4-5.1) mmol/L Chloride (98-107) mmol/L Carbon Dioxide (22-32) mmol/L BUN (9-20) mg/dL Creatinine (0.66-1.25) mg/dL Estimated GFR (>60) mL/min BUN/Creatinine Ratio (6-22) Glucose (80-110) mg/dL Lactate 1.5 (0.7-2.1) mmol/L Calcium (8.4-10.2) mg/dL Total Bilirubin (0.2-1.3) mg/dL AST (17-59) IU/L ALT (<50) IU/L Alkaline Phosphatase (38-126) U/L Total Creatine Kinase (55-170) U/L CK-MB (CK-2) CK-MB (CK-2) Rel Index Troponin I < 0.012 (0.01-0.034) ng/mL NT-Pro-B Natriuret Pep (<125) pg/mL Total Protein (6.3-8.2) g/dL Albumin (3.5-5.0) g/dL Globulin (1.7-4.1) g/dL Albumin/Globulin Ratio (1.0-2.8) Lipase (23-300) U/L Imaging Data US - DVT: Radiologist's Impression: Andi Anna?(Jasiel)??71??M??1950 ? Allergy/Adv: clindamycin Close Vascular Ultrasound (Signed) Nenita Madden - 03/01/22 Chest X-Ray (Signed) Nenita Madden - 03/01/22 Hip X-Ray (Signed) Pablito Frederick - 12/02/21 Pelvis X-Ray (Signed) Corina Castillo - 12/02/21 Telemetry Strips 07/29/18 Launch?[place] [address] Ultrasound Report Signed Patient: Andi Anna MR#: [id number] : 1950 Acct:[id number] Age/Sex: 71 / M Date of Service: 03/01/22 Loc: ED Accession Number: [id number] ?? Procedure: US periph venous low extrem lt Ordering Provider: Tiana Lee D.O. PROCEDURE:? US PERIPH VENOUS LOW EXTREM LT ? INDICATIONS:? PAIN, EDEMA, BLISTERING ? TECHNIQUE:? Real-time imaging, as well as color and pulse Doppler interrogation, were performed of the lower extremity deep veins from the inguinal ligament to the popliteal fossa.? ? COMPARISON:? None. ? FINDINGS:? The common femoral, femoral and popliteal veins are normally compressible, and free of intraluminal thrombus.? Color and pulse Doppler demonstrate normal phasic intraluminal flow.? There is normal augmentation response to distal compression maneuver. ? ? IMPRESSION:? ? 1. No DVT in the left lower extremity. ? 2. Preliminary report conveyed by the software project manager to the ordering provider. ? ? ? Dictated by: Nenita Madden M.D. on 03/01/2022 at 10:37 ? ? Approved by: Nenita Madden M.D. on 03/01/2022 at 10:38? Chest x-ray: Radiologist's Impression: Andi Anna?(Jasiel)??71??M??1950 ? Allergy/Adv: clindamycin Close Vascular Ultrasound (Signed) Nenita Madden - 03/01/22 Chest X-Ray (Signed) Nenita Madden - 03/01/22 Hip X-Ray (Signed) Pablito Frederick - 12/02/21 Pelvis X-Ray (Signed) Corina Castillo - 12/02/21 Telemetry Strips 07/29/18 Launch?[place] [address] XRay Report Signed Patient: Andi Anna MR#: [id number] : 1950 Acct:[id number] Age/Sex: 71 / M Date of Service: 03/01/22 Loc: ED Accession Number: [id number] ?? Procedure: XR chest 1V Ordering Provider: Tiana Lee D.O. PROCEDURE:? XR CHEST 1V ? INDICATIONS:? , exertional sob ? TECHNIQUE:? One view of the chest was acquired.? ? COMPARISON:? None. ? FINDINGS:? ? Surgical changes and devices:? There are overlying monitoring wires. ? Lungs and pleura:? The patient is lordotic in position.? Lung volumes are low.? The visible lung renner are clear.? No large effusion or pneumothorax. ? Mediastinum:? The heart size is normal.? The contour is slightly globular.? Aortic contour is normal.? No central venous congestion. ? Bones and chest wall:? No suspicious bony lesions.? Overlying soft tissues appear unremarkable.? ? IMPRESSION:? ? 1. Slightly globular heart contour but normal size. ? 2. No radiographic findings of central venous or interstitial congestion.? ? ? Dictated by: Nenita Madden M.D. on 03/01/2022 at 9:22 ? ? Approved by: Nenita Madden M.D. on 03/01/2022 at 9:24?? CT scan - chest: Radiologist's Impression: Andi Anna?(Jasiel)??71??M??1950 ? Allergy/Adv: clindamycin Close Chest CTA (Signed) Nenita Madden - 03/01/22 Vascular Ultrasound (Signed) Nenita Madden - 03/01/22 Chest X-Ray (Signed) ChanoNenita - 03/01/22 Hip X-Ray (Signed) OtonielPablito - 12/02/21 Pelvis X-Ray (Signed) Castillo,Corina - 12/02/21 Telemetry Strips 07/29/18 Launch?[address] [address] [address] Scan Report Signed Patient: Andi Anna MR#: [id number] : 1950 Acct:[id number] Age/Sex: 71 / M Date of Service: 03/01/22 Loc: ED Accession Number: [id number] ?? Procedure: CT angio chest PE protocol Ordering Provider: Tiana Lee D.O. PROCEDURE:? CT ANGIO CHEST PE PROTOCOL ? INDICATIONS:? sob w/ exertion, elevated dimer ? TECHNIQUE:? After the administration of intravenous contrast, 2 mm thick sections acquired from the pulmonary apices to the posterior costophrenic angles.? 3-dimensional maximum intensity projection (MIP) coronal and sagittal reformats were then acquired through the thorax.? For radiation dose reduction, the following was used:? automated exposure control, adjustment of mA and/or kV according to patient size.? ? COMPARISON:? None. ? FINDINGS:? Image quality:? Excellent.? ? Pulmonary arteries:? Pulmonary arteries are normal in size, and demonstrate no intraluminal filling defects to suggest central pulmonary embolism.? ? Lungs and pleura:? Mild left lower lobe bronchial wall thickening.? Central and peripheral airways are otherwise normal.? The lungs are clear without focal consolidation, suspicious nodule, mass, or pleural effusion. ? Mediastinum:? Heart size is slightly enlarged, without pericardial effusion.? Moderate coronary artery calcification.? No mediastinal or hilar adenopathy.? Thoracic aorta is normal in caliber and enhancement.? Esophagus is normal in caliber, without hiatal hernia.? ? Bones and chest wall:? No suspicious bony lesions.? Ribs and thoracic spine appear intact throughout.? Thyroid gland is normal.? No axillary or supraclavicular adenopathy.? ? Abdomen:? Upper abdomen demonstrates surgical changes of cholecystectomy, gastric sleeve and gastric bypass.? Portions of the solid organs are normal. ? IMPRESSION:? ? 1. Left lower lobe bronchial wall thickening suggesting bronchitis.? No distal pneumonitis. ? 2. No pulmonary embolus. ? 3. Borderline cardiomegaly with moderate coronary artery calcification.? ? ? Dictated by: Nenita Madden M.D. on 03/01/2022 at 11:58 ? ? Approved by: Nenita Madden M.D. on 03/01/2022 at 12:13?? ECG Data Attestation EKG: I personally reviewed and interpreted this ECG as follows: Interpretation: Sinus rhythm with first-degree AV block, rate of 60 4p are 234 QRS of 112 and QTC of 408. No acute ST changes noted. Patient has prior from 09/08 which does not show any acute changes. 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 No fevers or chills but some exertional dyspnea. Discussed with patient he is never had DVT ultrasound to rule out blood clot feel this would be appropriate today, D-dimer was included as well, EKG shows no acute changes, labs are pending but include cardiac enzymes, BNP and evaluation for shortness of breath cardiac in nature, pulmonary or even embolic. Patient's D-dimer was elevated although troponin and BNP are negative, renal function stable, anemia appears stable. Chest x-ray showed possible globular heart, DVT ultrasound is negative. CT angio was obtained as patient has had some mild shortness of breath recently, this is negative for PE shows possible bronchitis and left lower lobe, patient does not appear to be having any unstable angina or other acute changes and recommended follow-up with primary care. Patient to follow up with wound care with Dr. Villarreal who he was seeing until last week. Patient would likely benefit following up with Wound Care although he was discharged his blisters reoccurred plan to continue topical treatment, medicated wraps and topical Silvadene which patient has at home. Patient states topical antibiotics seemed to be more helpful as well as medicated wraps then oral antibiotics and I would agree with this plan. Return precautions discussed. Patient and family comfortable with plan. Discharge Plan Departure Patient Disposition: Home Clinical Impression: Bronchitis, Cellulitis of left leg Instructions: DI for Cellulitis -- Adult Activity Restrictions/Additional Instructions: Follow up with Dr. Villarreal/wound care to continue with your topical treatments and medicated wraps. Call 1st thing tomorrow morning to set this up. Follow up with your primary care physician for recheck. Your CT does not show any blood clots, you do have some moderate coronary artery calcification found incidentally and some thickening of the left lower lobe bronchial wall suggesting bronchitis. You may take prednisone 1 tablet daily x5 days, your left bronchial area does show some thickening which could be bronchitis and may be contributing to her shortness of breath. You may continue home medications as prescribed. Prescription sent to [facility] in [place]. Please return for fevers, new or worsening chest pain, shortness of breath, lightheadedness or passing out, increasing redness, swelling, purulent drainage or other new or concerning changes. Prescriptions: New prednisone 20 mg tablet 40 mg PO DAILY Qty: 10 0RF No Action (DME) ResMed AirSense Auto CPAP Qty: 1 Dose Instruction: As directed Label Comments: Pressure: 8 - 16 cmH2O DME: [employer] Rx Instructions: As directed cyanocobalamin (vitamin B-12) [Vitamin B-12] 2,500 mcg Tablet, Sublingual 2,500 mcg SUBLINGUAL WEEKLY tamsulosin 0.4 mg Capsule 0.4 mg PO BEDTIME lisinopril-hydrochlorothiazide 10-12.5 mg Tablet 1 tab PO DAILY Janumet 50-1,000 mg Tablet 1 tab PO BID cholecalciferol (vitamin D3) [Vitamin D3] 5,000 unit Tablet 5,000 unit PO DAILY loperamide 2 mg Tablet 2 mg PO DAILY PRN (Reason: Diarrhea) Rx Instructions: administer after each loose stool until symptoms controlled; do not exceed 8 mg per 24 hrs lidocaine 5 % Adhesive Patch,Medicated 1 patch TOPICAL DAILY Rx Instructions: leave on most painful area for up to 12 hrs acetaminophen 325 mg Tablet 650 mg PO Q6HR Qty: 60 0RF ibuprofen 400 mg Tablet 400 mg PO Q6HR Qty: 60 0RF oxycodone 10 mg Tablet 10 mg PO Q3HR PRN (Reason: Pain, Severe (7-10)) Qty: 60 0RF ferrous gluconate 324 mg (37.5 mg iron) tablet 324 mg PO DAILY folic acid 0.8 mg capsule 0.8 mg PO DAILY PreserVision AREDS [id number] capsule 1 cap PO BID atorvastatin 20 mg tablet 20 mg PO DAILY omeprazole 20 mg capsule,delayed release(DR/EC) 20 mg PO BEDTIME Referrals: Janet Garcia ARNP [Primary Care Provider] - Visit Report Forms: Patient Portal/API
[2022-03-01 11:03] VITALS: PULSE 72; RESP 20; O2SAT 100
[2022-03-01 11:16] LABS: Add Manual Diff / Slide Review NO; Basophils Absolute Auto 0 /uL (0-100); Basophils Percent Auto 0.2 % (0-2); Eosinophils Absolute Auto 300 /uL (0-450); Eosinophils Percent Auto 4.6 % (2-4); Hematocrit 37.6 % (41-53); Hemoglobin 12.2 g/dL (13.5-17.5); Lymphocytes Absolute Auto 1700 /uL (1100-4500); Lymphocytes Percent Auto 24.4 % (25-40); Mean Corpuscular HGB Conc 32.4 % (30-36); Mean Corpuscular Hemoglobin 28.1 PG (26-34); Mean Corpuscular Volume 86.7 fL (80-100); Monocytes Absolute Auto 600 /uL (0-900); Monocytes Percent Auto 8.7 % (3-14); Neutrophils Absolute Auto 4400 /uL (1500-7000); Neutrophils Percent Auto 62.1 % (50-75); Platelet Count 347 X10^3/uL (150-400); Red Blood Cell Count 4.34 X10^6/uL (4.5-5.9); Red Cell Distribution Width 15.6 % (11.6-14.8); White Blood Cell Count 7.1 X10^3/uL (4.5-11.0)
[2022-03-01 11:24] LABS: INR 1.1 (0.9-1.3); Prothrombin Time 12.4 SECONDS (10.1-12.7)
[2022-03-01 11:27] LABS: PTT Partial Thromboplastin Tim 34 SECONDS (26-36)
[2022-03-01 11:29] LABS: Alanine Aminotransferase 21 IU/L (<50); Albumin 4.5 g/dL (3.5-5.0); Albumin Globulin Ratio 1.4 (1.0-2.8); Alkaline Phosphatase 71 U/L (38-126); Aspartate Aminotransferase 21 IU/L (17-59); BUN Creatinine Ratio 14.6 (6-22); Bilirubin Total 0.6 mg/dL (0.2-1.3); Blood Urea Nitrogen 13 mg/dL (9-20); Calcium 9.6 mg/dL (8.4-10.2); Carbon Dioxide 28 mmol/L (22-32); Chloride 98 mmol/L (98-107); Creatine Kinase 44 U/L (55-170); Estimated Glomerular Filt Rate > 60 mL/min (>60); Globulin 3.3 g/dL (1.7-4.1); Glucose 126 mg/dL (80-110); HEMOLYSIS < 15 (0-50); Lipase 83 U/L (23-300); Sodium 138 mmol/L (137-145); Total Protein 7.8 g/dL (6.3-8.2)
[2022-03-01 11:30] LABS: Lactate (Lactic Acid) 1.5 mmol/L (0.7-2.1)
[2022-03-01 11:41] LABS: NT-proBNP (BNP-Adult 18+) 27 pg/mL (<125); Troponin I < 0.012 ng/mL (0.01-0.034)
[2022-03-01 12:07] LABS: D Dimer 1572 ng/ml (<500)
--- NOTE | 2022-03-01 12:12 | DI.CT.S_ITS ---
PROCEDURE: CT ANGIO CHEST PE PROTOCOL INDICATIONS: sob w/ exertion, elevated dimer TECHNIQUE: After the administration of intravenous contrast, 2 mm thick sections acquired from the pulmonary apices to the posterior costophrenic angles. 3-dimensional maximum intensity projection (MIP) coronal and sagittal reformats were then acquired through the thorax. For radiation dose reduction, the following was used: automated exposure control, adjustment of mA and/or kV according to patient size. COMPARISON: None. FINDINGS: Image quality: Excellent. Pulmonary arteries: Pulmonary arteries are normal in size, and demonstrate no intraluminal filling defects to suggest central pulmonary embolism. Lungs and pleura: Mild left lower lobe bronchial wall thickening. Central and peripheral airways are otherwise normal. The lungs are clear without focal consolidation, suspicious nodule, mass, or pleural effusion. Mediastinum: Heart size is slightly enlarged, without pericardial effusion. Moderate coronary artery calcification. No mediastinal or hilar adenopathy. Thoracic aorta is normal in caliber and enhancement. Esophagus is normal in caliber, without hiatal hernia. Bones and chest wall: No suspicious bony lesions. Ribs and thoracic spine appear intact throughout. Thyroid gland is normal. No axillary or supraclavicular adenopathy. Abdomen: Upper abdomen demonstrates surgical changes of cholecystectomy, gastric sleeve and gastric bypass. Portions of the solid organs are normal. IMPRESSION: 1. Left lower lobe bronchial wall thickening suggesting bronchitis. No distal pneumonitis. 2. No pulmonary embolus. 3. Borderline cardiomegaly with moderate coronary artery calcification. Dictated by: Nenita Madden M.D. on 03/01/2022 at 11:58 Approved by: Nenita Madden M.D. on 03/01/2022 at 12:13
[2022-03-01 13:09] VITALS: PULSE 64; RESP 24; O2SAT 100
[2022-03-01 13:10] VITALS: BP 131/62; PULSE 62; RESP 13; O2SAT 100
[2022-03-01 13:11] LABS: Troponin I < 0.012 ng/mL (0.01-0.034)
== END 2022-03-01 13:57 | disposition home or self-care (01) ==
PROVIDERS: Emergency Provider Emergency Medicine; Family Provider Physician Assistant; PCP Nurse Practitioner Family
DX: J40 Bronchitis, not specified as acute or chronic (principal); L03.116 Cellulitis of left lower limb; R07.9 Chest pain, unspecified
CPT/HCPCS: 36415; 71045; 71275; 80053; 82550; 83605; 83690; 83880; 84484; 85025; 85379; 85610; 85730; 87040; 87070; 87205; 93005; 93971; 99284; Q9967

== ENCOUNTER → 2022-03-05 08:43 | Outpatient (CLI) | payer MEDICARE, OTHER, SELFPAY ==
[2021-12-02 14:23] VITALS: BMI 39.2
== END ==
PROVIDERS: Family Provider Physician Assistant; PCP Nurse Practitioner Family; Referring Provider Podiatrist; Visit Provider Family Medicine
DX: I87.2 Venous insufficiency (chronic) (peripheral) (principal); L23.1 Allergic contact dermatitis due to adhesives; E11.622 Type 2 diabetes mellitus with other skin ulcer; L97.821 Non-pressure chronic ulcer of other part of left lower leg limited to breakdown of skin; R60.0 Localized edema; G60.9 Hereditary and idiopathic neuropathy, unspecified; E11.40 Type 2 diabetes mellitus with diabetic neuropathy, unspecified
CPT/HCPCS: 97597; 99214

== ENCOUNTER → 2022-03-12 08:43 | Outpatient (CLI) | payer MEDICARE, OTHER, SELFPAY ==
[2021-12-02 14:23] VITALS: BMI 39.2
== END ==
PROVIDERS: Family Provider Physician Assistant; PCP Nurse Practitioner Family; Referring Provider Podiatrist; Visit Provider Family Medicine
DX: I87.2 Venous insufficiency (chronic) (peripheral) (principal); L97.821 Non-pressure chronic ulcer of other part of left lower leg limited to breakdown of skin; R60.0 Localized edema; E11.40 Type 2 diabetes mellitus with diabetic neuropathy, unspecified; L23.1 Allergic contact dermatitis due to adhesives
CPT/HCPCS: 97597

== ENCOUNTER 2022-03-16 15:07 | Observation (INO) | payer MEDICARE, OTHER, SELFPAY ==
[2021-12-02 14:23] VITALS: BMI 39.2
[2022-03-16] VITALS (20 sets, daily range): BP systolic 132–152; BP diastolic 65–109; PULSE 66–82; RESP 15–29; TEMP 37.2; O2SAT 93–99; BMI 40.3
--- NOTE | 2022-03-16 15:49 | DI.RAD.S_ITS ---
PROCEDURE: XR CHEST 1V INDICATIONS: weakness TECHNIQUE: One view of the chest was acquired. COMPARISON: [facility], CR, XR CHEST 1V, 03/01/2022, 9:47. FINDINGS: Surgical changes and devices: None. Lungs and pleura: Lungs are clear. No pleural effusions or pneumothorax. Mediastinum: Mediastinal contours appear normal. Heart size is normal. Bones and chest wall: No suspicious bony lesions. Overlying soft tissues appear unremarkable. IMPRESSION: No acute process. Dictated by: Beto Olson M.D. on 03/16/2022 at 16:15 Approved by: Beto Olson M.D. on 03/16/2022 at 16:16
[2022-03-16 16:06] LABS: Add Manual Diff / Slide Review NO; Basophils Absolute Auto 0 /uL (0-100); Basophils Percent Auto 0.2 % (0-2); Eosinophils Absolute Auto 400 /uL (0-450); Eosinophils Percent Auto 4.3 % (2-4); Hematocrit 38.4 % (41-53); Hemoglobin 12.8 g/dL (13.5-17.5); Lactate (Lactic Acid) 2.1 mmol/L (0.7-2.1); Lymphocytes Absolute Auto 1700 /uL (1100-4500); Mean Corpuscular HGB Conc 33.2 % (30-36); Mean Corpuscular Hemoglobin 28.4 PG (26-34); Mean Corpuscular Volume 85.3 fL (80-100); Monocytes Absolute Auto 600 /uL (0-900); Monocytes Percent Auto 7.2 % (3-14); Neutrophils Absolute Auto 5700 /uL (1500-7000); Neutrophils Percent Auto 68.3 % (50-75); Platelet Count 324 X10^3/uL (150-400); Red Cell Distribution Width 15.6 % (11.6-14.8); White Blood Cell Count 8.4 X10^3/uL (4.5-11.0)
[2022-03-16 16:08] LABS: Alanine Aminotransferase 22 IU/L (<50); Albumin 4.3 g/dL (3.5-5.0); Albumin Globulin Ratio 1.3 (1.0-2.8); Alkaline Phosphatase 69 U/L (38-126); Aspartate Aminotransferase 20 IU/L (17-59); BUN Creatinine Ratio 14.4 (6-22); Bilirubin Total 0.7 mg/dL (0.2-1.3); Blood Urea Nitrogen 13 mg/dL (9-20); Calcium 9.6 mg/dL (8.4-10.2); Carbon Dioxide 28 mmol/L (22-32); Chloride 98 mmol/L (98-107); Creatine Kinase 60 U/L (55-170); Estimated Glomerular Filt Rate > 60 mL/min (>60); Globulin 3.3 g/dL (1.7-4.1); Glucose 127 mg/dL (80-110); HEMOLYSIS < 15 (0-50); Lipase 60 U/L (23-300); Potassium 4.5 mmol/L (3.4-5.1); Sodium 135 mmol/L (137-145); Total Protein 7.6 g/dL (6.3-8.2)
[2022-03-16 16:19] LABS: Troponin I < 0.012 ng/mL (0.01-0.034)
--- NOTE | 2022-03-16 16:46 | ED.WEAKNESS ---
HPI - Weakness <Rosaura Langley PA-C - Last Filed: 03/16/22 19:51> General Chief complaint: Weakness Stated complaint: Weak limbs, Worsening symptoms Time Seen by Provider: 03/16/22 15:39 Mode of arrival: Family Vehicle History of Present Illness HPI Narrative: 71-year-old male with past medical history diabetes, hypertension, dyslipidemia presents to the ED with worsening weakness, mobility issues. Patient was seen in the ED on 03/01/2022, was diagnosed with bronchitis and discharged. Patient had a hip replacement in November 2021, following which he developed an infection of the left anterior savage with blisters. His wounds have been treated by wound care since then with medicated dressings. Patient states that he suffered a ground level fall when he returned from a vacation in early February, following which he has grown gradually weaker, unable to ambulate or get off from the bed and perform normal ADLs. Patient denies fever, chills, chest pain, shortness of breath, cough, nausea, vomiting, abdominal pain, dysuria, lightheadedness, dizziness, syncope. Patient endorses daily diarrhea, which he characterizes as 2 episodes of diarrhea daily over the last several months. Etiology of the diarrhea is unclear. Patient comes into the ED today, given that his and son have been unable to take care of him to perform his daily ADLs. Related Data Home Medications Medication Instructions Recorded Confirmed cholecalciferol (vitamin D3) 125 5,000 unit PO DAILY 07/29/18 03/17/22 mcg (5,000 unit) tablet (Vitamin D3) cyanocobalamin (vitamin B-12) 2,500 mcg sublingual WEEKLY 07/29/18 03/17/22 2,500 mcg sublingual tablet (Vitamin B-12) sitagliptin 50 mg-metformin 1,000 1 tab PO BID 07/29/18 03/17/22 mg tablet (Janumet) tamsulosin 0.4 mg capsule 0.4 mg PO BEDTIME 07/29/18 03/17/22 atorvastatin 20 mg tablet 20 mg PO QPM 01/13/19 03/17/22 omeprazole 20 mg capsule,delayed 20 mg PO BEDTIME 01/12/20 03/17/22 release lidocaine 5 % topical patch 1 patch topical DAILY PRN Pain 11/26/21 03/17/22 (Scale Score 4-6) loperamide 2 mg tablet 2 mg PO DAILY PRN Diarrhea 11/26/21 03/17/22 ferrous gluconate 324 mg (37.5 mg 324 mg PO QAM PRN arthritis pain 02/25/22 03/17/22 iron) tablet folic acid 0.8 mg capsule 0.8 mg PO DAILY 02/25/22 03/17/22 vitamins A,C,F-ttwd-hphalg 14,320 1 cap PO DAILY 02/25/22 03/17/22 unit-226 mg-200 unit capsule (PreserVision AREDS) acetaminophen 325 mg tablet 650 mg PO Q6HR PRN Pain (Scale 03/16/22 03/17/22 Score 4-6) betamethasone dipropionate 0.05 % 1 applic topical DAILY PRN Rash 03/16/22 03/17/22 topical cream diclofenac sodium 1 % topical gel 1 ea topical BID PRN arthritis pain 03/16/22 03/17/22 hydrochlorothiazide 12.5 mg tablet 12.5 mg PO QAM 03/16/22 03/17/22 lisinopril 10 mg tablet 10 mg PO QAM 03/16/22 03/17/22 silver sulfadiazine 1 % topical 1 applic topical DAILY 03/16/22 03/17/22 cream (SSD) Allergies Allergy/AdvReac Type Severity Reaction Status Date / Time clindamycin Allergy Rash Verified 03/16/22 15:36 Review of Systems <Rosaura Langley PA-C - Last Filed: 03/16/22 19:51> Review of Systems ROS Unobtainable: All systems reviewed & are unremarkable except as noted in HPI and below Constitutional Constitutional: Denies chills, Reports fatigue, Denies fever(s), Denies frequent falls, Reports lethargy and Reports weakness Eyes Eyes: Denies change in vision, Denies eye discharge, Denies irritation and Denies loss of vision ENT Ears, Nose, Mouth, and Throat: Denies change in voice, Denies dizziness, Reports neck pain, Denies sore throat and Denies throat swelling Cardiovascular Cardiovascular: Denies chest pain, Denies irregular heart rhythm, Denies lightheadedness, Denies palpitations, Denies dyspnea, Denies dyspnea on exertion and Denies orthopnea Respiratory Respiratory: Denies cough, Denies dyspnea, Denies dyspnea on exertion and Denies wheezing Gastrointestinal Gastrointestinal: Denies abdominal pain, Denies change in bowel habits, Denies diarrhea, Denies nausea and Denies vomiting Genitourinary Genitourinary: Denies hematuria, Denies flank pain, Denies urinary incontinence and Denies urinary urgency Musculoskeletal Musculoskeletal: Denies back pain, Denies muscle weakness, Reports neck pain, Denies numbness and Denies tingling Comments: Shoulder pain Integumentary/Breasts Skin/Breast: Denies pruritus, Denies erythema, Denies rash and Denies wounds Neurologic Neurologic: Denies behavioral changes, Denies confusion, Denies dizziness, Denies frequent falls, Denies loss of vision, Denies numbness, Denies tingling and Reports weakness Psychiatric Psychiatric: Denies anxiety, Denies behavioral changes, Denies confusion, Denies depression, Denies homicidal ideation and Denies suicidal ideation Endocrine Endocrine: Reports fatigue, Denies flushing and Denies palpitations Hematologic/Lymphatic Hematologic/Lymphatic: Denies easy bruising Allergic/Immunologic Allergic/Immunologic: Denies urticaria, Denies throat swelling and Denies wheezing Patient History <Rosaura Langley PA-C - Last Filed: 03/16/22 19:51> Medical History Diabetes Diminished hearing Easy bruisability GERD (gastroesophageal reflux disease) HLD (hyperlipidemia) Hypertension Knee pain, chronic Morbid obesity with BMI of 40.0-44.9, adult Obesity (BMI 30-39.9) Obstructive sleep apnea of adult Osteoarthritis Peptic ulcer (2006) Sinus drainage Type 2 diabetes mellitus Surgical History H/O vasectomy (1977) History of gastric bypass (1989) History of hernia repair History of orthopedic surgery History of surgery (2010) Hx of cardiac cath (2013) Hx of cholecystectomy (1989) Hx of tonsillectomy Social History marital status: details: salma Overton, lives in [place] household members: spouse lives independently: Yes caregiver/support person: No housing: house Smoking Status: Former smoker alcohol intake: former Smoking Status: Former smoker Substance Use Type: does not use Exam <Rosaura Langley PA-C - Last Filed: 03/16/22 19:51> Narrative Exam Narrative: Const General:?cooperative, healthy appearing and comfortable [facility] Head:?normal to inspection Ears:?hearing grossly normal bilaterally Nose:?external nose normal Face and sinus:?normal facial exam and sinuses nontender Mouth:?oral mucosae normal Throat:?posterior oropharynx normal Eyes General:?appearance normal, both eyes and all related structures Neck Neck:?normal visual inspection and no lymphadenopathy noted Resp Effort & Inspection:?normal respiratory effort Auscultation:?clear to auscultation bilaterally Cardio Rate:?regular rate Rhythm:?regular rhythm Musculoskeletal Patient is neurovascularly intact. No midline tenderness to palpation. No paraspinal tenderness to palpation. Neuro General:?patient alert, patient awake and patient oriented x3 Initial Vital Signs Initial Vital Signs: Vital Signs Temperature 99 F 03/16/22 15:25 Pulse Rate 82 03/16/22 15:25 Respiratory Rate 18 03/16/22 15:25 Pulse Oximetry 98 03/16/22 15:25 Oxygen Delivery Method 03/16/22 15:25 <Magdalene Negrete DO - Last Filed: 03/18/22 02:03> Initial Vital Signs Initial Vital Signs: Vital Signs Temperature 99 F 03/16/22 15:25 Pulse Rate 82 03/16/22 15:25 Respiratory Rate 18 03/16/22 15:25 Pulse Oximetry 98 03/16/22 15:25 Oxygen Delivery Method 03/16/22 15:25 <Andi Marquez DO - Last Filed: 03/17/22 15:52> Initial Vital Signs Initial Vital Signs: Vital Signs Temperature 99 F 03/16/22 15:25 Pulse Rate 82 03/16/22 15:25 Respiratory Rate 18 03/16/22 15:25 Pulse Oximetry 98 03/16/22 15:25 Oxygen Delivery Method 03/16/22 15:25 Course <Rosaura Langley PA-C - Last Filed: 03/16/22 19:51> Orders Ordered: ED Orders 03/18/22 05:00 Basic Metabolic Panel Routine Complete Blood Count AUTO DIFF Routine 03/18/22 13:35 MR cervical spine wo/w con Stat Acetaminophen (Acetaminophen 325 Mg Tablet) 650 mg PO Q6H PRN PRN Reason: Fever/Mild Pain (1-3) Last Admin: 03/17/22 21:05 Dose: 650 mg Documented By: Enoxaparin Sodium (Enoxaparin 40 Mg/0.4 Ml Syringe) 40 mg SUBCUT DAILY [facility] Ferrous Sulfate (Ferrous Sulfate 325 Mg Tablet) 325 mg PO DAILY [facility] Hydrochlorothiazide (Hydrochlorothiazide 25 Mg Tablet) 12.5 mg PO DAILY [facility] Lidocaine (Lidocaine Patch 1 Each Adh..Patch) 1 each TOP DAILY [facility] Last Admin: 03/17/22 22:16 Dose: 1 each Documented By: Lisinopril (Lisinopril 10 Mg Tablet) 10 mg PO DAILY [facility] Metformin HCl (Metformin Hcl 500 Mg Tablet) 1,000 mg PO BID [facility] Last Admin: 03/17/22 21:04 Dose: 1,000 mg Documented By: Admin: 03/17/22 10:18 Dose: 1,000 mg Documented By: Admin: 03/16/22 21:14 Dose: 1,000 mg Documented By: JOSSIE Nystatin (Nystatin Powder 15gm) 1 applic TOP TID PRN PRN Reason: Rash Last Admin: 03/17/22 22:17 Dose: 1 applic Documented By: Ondansetron HCl (Ondansetron 4 Mg/2 Ml Inj) 4 mg IV Q8HR PRN PRN Reason: Nausea And Vomiting Sitagliptin Phosphate (Sitagliptin 50 Mg Tablet) 50 mg PO BID [facility] Last Admin: 03/17/22 21:04 Dose: 50 mg Documented By: Admin: 03/17/22 10:18 Dose: 50 mg Documented By: Admin: 03/16/22 21:13 Dose: 50 mg Documented By: JOSSIE Tamsulosin HCl (Tamsulosin 0.4 Mg Capsule) 0.4 mg PO BEDTIME [facility] Last Admin: 03/17/22 21:05 Dose: 0.4 mg Documented By: Discontinued Medications Atorvastatin Calcium (Atorvastatin 20 Mg Tablet) 20 mg PO NOW ONE Stop: 03/16/22 19:13 Last Admin: 03/16/22 21:14 Dose: 20 mg Documented By: JOSSIE Lidocaine (Lidocaine Patch 1 Each Adh..Patch) 1 each TOP NOW ONE Stop: 03/16/22 19:12 Last Admin: 03/16/22 19:52 Dose: 1 each Documented By: GEOVANNA Lidocaine (Remove Lidocaine Patch) 1 each TOP NOW ONE Stop: 03/17/22 12:31 Last Admin: 03/17/22 14:30 Dose: 1 each Documented By: JENNIFER Metformin HCl (Metformin Hcl 500 Mg Tablet) 1,000 mg PO NOW ONE Stop: 03/16/22 19:15 Last Admin: 03/16/22 21:23 Dose: Not Given Documented By: AT Pantoprazole Sodium (Pantoprazole Dr 20 Mg Tablet) 20 mg PO NOW ONE Stop: 03/16/22 19:15 Last Admin: 03/16/22 21:14 Dose: 20 mg Documented By: JOSSIE Tamsulosin HCl (Tamsulosin 0.4 Mg Capsule) 0.4 mg PO NOW ONE Stop: 03/16/22 19:15 Last Admin: 03/16/22 21:14 Dose: 0.4 mg Documented By: JOSSIE Vital Signs Vital signs: Vital Signs - 8 hr 03/17/22 08:00 03/17/22 08:09 03/17/22 08:09 Pulse Rate 83 79 Respiratory Rate 20 Blood Pressure 121/60 Pulse Oximetry 96 95 03/17/22 08:30 03/17/22 08:31 03/17/22 08:31 Pulse Rate 77 75 Respiratory Rate Blood Pressure 122/56 L Pulse Oximetry 95 94 03/17/22 09:00 03/17/22 09:48 03/17/22 09:52 Pulse Rate 88 82 81 Respiratory Rate Blood Pressure Pulse Oximetry 96 97 96 03/17/22 09:52 03/17/22 10:00 03/17/22 10:01 Pulse Rate 73 Respiratory Rate Blood Pressure 158/67 H 123/58 L Pulse Oximetry 93 03/17/22 10:01 03/17/22 10:30 03/17/22 10:31 Pulse Rate 74 81 Respiratory Rate Blood Pressure 133/64 Pulse Oximetry 94 96 03/17/22 10:31 03/17/22 11:00 03/17/22 11:01 Pulse Rate 81 78 Respiratory Rate Blood Pressure 129/72 Pulse Oximetry 96 95 03/17/22 11:01 03/17/22 11:30 03/17/22 11:31 Pulse Rate 81 84 Respiratory Rate Blood Pressure 114/57 L Pulse Oximetry 96 95 03/17/22 11:31 03/17/22 12:00 03/17/22 12:00 Pulse Rate 82 87 Respiratory Rate Blood Pressure 116/58 L Pulse Oximetry 95 96 03/17/22 12:30 03/17/22 12:30 03/17/22 13:00 Pulse Rate 96 H Respiratory Rate Blood Pressure 106/55 L 115/57 L Pulse Oximetry 94 03/17/22 13:00 03/17/22 13:30 03/17/22 13:30 Pulse Rate 89 89 Respiratory Rate Blood Pressure 114/58 L Pulse Oximetry 92 92 03/17/22 14:00 03/17/22 14:00 Pulse Rate 87 Respiratory Rate Blood Pressure 120/61 Pulse Oximetry 92 <Magdalene Negrete, - Last Filed: 03/18/22 02:03> Orders Ordered: ED Orders 03/18/22 05:00 Basic Metabolic Panel Routine Complete Blood Count AUTO DIFF Routine 03/18/22 13:35 MR cervical spine wo/w con Stat Acetaminophen (Acetaminophen 325 Mg Tablet) 650 mg PO Q6H PRN PRN Reason: Fever/Mild Pain (1-3) Last Admin: 03/17/22 21:05 Dose: 650 mg Documented By: Enoxaparin Sodium (Enoxaparin 40 Mg/0.4 Ml Syringe) 40 mg SUBCUT DAILY [facility] Ferrous Sulfate (Ferrous Sulfate 325 Mg Tablet) 325 mg PO DAILY [facility] Hydrochlorothiazide (Hydrochlorothiazide 25 Mg Tablet) 12.5 mg PO DAILY [facility] Lidocaine (Lidocaine Patch 1 Each Adh..Patch) 1 each TOP DAILY [facility] Last Admin: 03/17/22 22:16 Dose: 1 each Documented By: Lisinopril (Lisinopril 10 Mg Tablet) 10 mg PO DAILY [facility] Metformin HCl (Metformin Hcl 500 Mg Tablet) 1,000 mg PO BID [facility] Last Admin: 03/17/22 21:04 Dose: 1,000 mg Documented By: Admin: 03/17/22 10:18 Dose: 1,000 mg Documented By: Admin: 03/16/22 21:14 Dose: 1,000 mg Documented By: JOSSIE Nystatin (Nystatin Powder 15gm) 1 applic TOP TID PRN PRN Reason: Rash Last Admin: 03/17/22 22:17 Dose: 1 applic Documented By: Ondansetron HCl (Ondansetron 4 Mg/2 Ml Inj) 4 mg IV Q8HR PRN PRN Reason: Nausea And Vomiting Sitagliptin Phosphate (Sitagliptin 50 Mg Tablet) 50 mg PO BID [facility] Last Admin: 03/17/22 21:04 Dose: 50 mg Documented By: Admin: 03/17/22 10:18 Dose: 50 mg Documented By: Admin: 03/16/22 21:13 Dose: 50 mg Documented By: JOSSIE Tamsulosin HCl (Tamsulosin 0.4 Mg Capsule) 0.4 mg PO BEDTIME ALEXSANDRA Last Admin: 03/17/22 21:05 Dose: 0.4 mg Documented By: Discontinued Medications Atorvastatin Calcium (Atorvastatin 20 Mg Tablet) 20 mg PO NOW ONE Stop: 03/16/22 19:13 Last Admin: 03/16/22 21:14 Dose: 20 mg Documented By: JOSSIE Lidocaine (Lidocaine Patch 1 Each Adh..Patch) 1 each TOP NOW ONE Stop: 03/16/22 19:12 Last Admin: 03/16/22 19:52 Dose: 1 each Documented By: GEOVANNA Lidocaine (Remove Lidocaine Patch) 1 each TOP NOW ONE Stop: 03/17/22 12:31 Last Admin: 03/17/22 14:30 Dose: 1 each Documented By: JENNIFER Metformin HCl (Metformin Hcl 500 Mg Tablet) 1,000 mg PO NOW ONE Stop: 03/16/22 19:15 Last Admin: 03/16/22 21:23 Dose: Not Given Documented By: GEOVANNA Pantoprazole Sodium (Pantoprazole Dr 20 Mg Tablet) 20 mg PO NOW ONE Stop: 03/16/22 19:15 Last Admin: 03/16/22 21:14 Dose: 20 mg Documented By: JOSSIE Tamsulosin HCl (Tamsulosin 0.4 Mg Capsule) 0.4 mg PO NOW ONE Stop: 03/16/22 19:15 Last Admin: 03/16/22 21:14 Dose: 0.4 mg Documented By: JOSSIE Vital Signs Vital signs: Vital Signs - 8 hr 03/17/22 08:00 03/17/22 08:09 03/17/22 08:09 Pulse Rate 83 79 Respiratory Rate 20 Blood Pressure 121/60 Pulse Oximetry 96 95 03/17/22 08:30 03/17/22 08:31 03/17/22 08:31 Pulse Rate 77 75 Respiratory Rate Blood Pressure 122/56 L Pulse Oximetry 95 94 03/17/22 09:00 03/17/22 09:48 03/17/22 09:52 Pulse Rate 88 82 81 Respiratory Rate Blood Pressure Pulse Oximetry 96 97 96 03/17/22 09:52 03/17/22 10:00 03/17/22 10:01 Pulse Rate 73 Respiratory Rate Blood Pressure 158/67 H 123/58 L Pulse Oximetry 93 03/17/22 10:01 03/17/22 10:30 03/17/22 10:31 Pulse Rate 74 81 Respiratory Rate Blood Pressure 133/64 Pulse Oximetry 94 96 03/17/22 10:31 03/17/22 11:00 03/17/22 11:01 Pulse Rate 81 78 Respiratory Rate Blood Pressure 129/72 Pulse Oximetry 96 95 03/17/22 11:01 03/17/22 11:30 03/17/22 11:31 Pulse Rate 81 84 Respiratory Rate Blood Pressure 114/57 L Pulse Oximetry 96 95 03/17/22 11:31 03/17/22 12:00 03/17/22 12:00 Pulse Rate 82 87 Respiratory Rate Blood Pressure 116/58 L Pulse Oximetry 95 96 03/17/22 12:30 03/17/22 12:30 03/17/22 13:00 Pulse Rate 96 H Respiratory Rate Blood Pressure 106/55 L 115/57 L Pulse Oximetry 94 03/17/22 13:00 03/17/22 13:30 03/17/22 13:30 Pulse Rate 89 89 Respiratory Rate Blood Pressure 114/58 L Pulse Oximetry 92 92 03/17/22 14:00 03/17/22 14:00 Pulse Rate 87 Respiratory Rate Blood Pressure 120/61 Pulse Oximetry 92 <Andi Marquez, DO - Last Filed: 03/17/22 15:52> Orders Ordered: ED Orders 03/18/22 05:00 Basic Metabolic Panel Routine Complete Blood Count AUTO DIFF Routine 03/18/22 13:35 MR cervical spine wo/w con Stat Acetaminophen (Acetaminophen 325 Mg Tablet) 650 mg PO Q6H PRN PRN Reason: Fever/Mild Pain (1-3) Last Admin: 03/17/22 21:05 Dose: 650 mg Documented By: Enoxaparin Sodium (Enoxaparin 40 Mg/0.4 Ml Syringe) 40 mg SUBCUT DAILY [facility] Ferrous Sulfate (Ferrous Sulfate 325 Mg Tablet) 325 mg PO DAILY [facility] Hydrochlorothiazide (Hydrochlorothiazide 25 Mg Tablet) 12.5 mg PO DAILY [facility] Lidocaine (Lidocaine Patch 1 Each Adh..Patch) 1 each TOP DAILY [facility]LEX[facility]DR[facility] Last Admin: 03/17/22 22:16 Dose: 1 each Documented By: Lisinopril (Lisinopril 10 Mg Tablet) 10 mg PO DAILY [facility] Metformin HCl (Metformin Hcl 500 Mg Tablet) 1,000 mg PO BID [facility] Last Admin: 03/17/22 21:04 Dose: 1,000 mg Documented By: Admin: 03/17/22 10:18 Dose: 1,000 mg Documented By: Admin: 03/16/22 21:14 Dose: 1,000 mg Documented By: JOSSIE Nystatin (Nystatin Powder 15gm) 1 applic TOP TID PRN PRN Reason: Rash Last Admin: 03/17/22 22:17 Dose: 1 applic Documented By: Ondansetron HCl (Ondansetron 4 Mg/2 Ml Inj) 4 mg IV Q8HR PRN PRN Reason: Nausea And Vomiting Sitagliptin Phosphate (Sitagliptin 50 Mg Tablet) 50 mg PO BID [facility] Last Admin: 03/17/22 21:04 Dose: 50 mg Documented By: Admin: 03/17/22 10:18 Dose: 50 mg Documented By: Admin: 03/16/22 21:13 Dose: 50 mg Documented By: JOSSIE Tamsulosin HCl (Tamsulosin 0.4 Mg Capsule) 0.4 mg PO BEDTIME [facility] Last Admin: 03/17/22 21:05 Dose: 0.4 mg Documented By: Discontinued Medications Atorvastatin Calcium (Atorvastatin 20 Mg Tablet) 20 mg PO NOW ONE Stop: 03/16/22 19:13 Last Admin: 03/16/22 21:14 Dose: 20 mg Documented By: JOSSIE Lidocaine (Lidocaine Patch 1 Each Adh..Patch) 1 each TOP NOW ONE Stop: 03/16/22 19:12 Last Admin: 03/16/22 19:52 Dose: 1 each Documented By: AT Lidocaine (Remove Lidocaine Patch) 1 each TOP NOW ONE Stop: 03/17/22 12:31 Last Admin: 03/17/22 14:30 Dose: 1 each Documented By: JENNIFER Metformin HCl (Metformin Hcl 500 Mg Tablet) 1,000 mg PO NOW ONE Stop: 03/16/22 19:15 Last Admin: 03/16/22 21:23 Dose: Not Given Documented By: AT Pantoprazole Sodium (Pantoprazole Dr 20 Mg Tablet) 20 mg PO NOW ONE Stop: 03/16/22 19:15 Last Admin: 03/16/22 21:14 Dose: 20 mg Documented By: JOSSIE Tamsulosin HCl (Tamsulosin 0.4 Mg Capsule) 0.4 mg PO NOW ONE Stop: 03/16/22 19:15 Last Admin: 03/16/22 21:14 Dose: 0.4 mg Documented By: JOSSIE Vital Signs Vital signs: Vital Signs - 8 hr 03/17/22 08:00 03/17/22 08:09 03/17/22 08:09 Pulse Rate 83 79 Respiratory Rate 20 Blood Pressure 121/60 Pulse Oximetry 96 95 03/17/22 08:30 03/17/22 08:31 03/17/22 08:31 Pulse Rate 77 75 Respiratory Rate Blood Pressure 122/56 L Pulse Oximetry 95 94 03/17/22 09:00 03/17/22 09:48 03/17/22 09:52 Pulse Rate 88 82 81 Respiratory Rate Blood Pressure Pulse Oximetry 96 97 96 03/17/22 09:52 03/17/22 10:00 03/17/22 10:01 Pulse Rate 73 Respiratory Rate Blood Pressure 158/67 H 123/58 L Pulse Oximetry 93 03/17/22 10:01 03/17/22 10:30 03/17/22 10:31 Pulse Rate 74 81 Respiratory Rate Blood Pressure 133/64 Pulse Oximetry 94 96 03/17/22 10:31 03/17/22 11:00 03/17/22 11:01 Pulse Rate 81 78 Respiratory Rate Blood Pressure 129/72 Pulse Oximetry 96 95 03/17/22 11:01 03/17/22 11:30 03/17/22 11:31 Pulse Rate 81 84 Respiratory Rate Blood Pressure 114/57 L Pulse Oximetry 96 95 03/17/22 11:31 03/17/22 12:00 03/17/22 12:00 Pulse Rate 82 87 Respiratory Rate Blood Pressure 116/58 L Pulse Oximetry 95 96 03/17/22 12:30 03/17/22 12:30 03/17/22 13:00 Pulse Rate 96 H Respiratory Rate Blood Pressure 106/55 L 115/57 L Pulse Oximetry 94 03/17/22 13:00 03/17/22 13:30 03/17/22 13:30 Pulse Rate 89 89 Respiratory Rate Blood Pressure 114/58 L Pulse Oximetry 92 92 03/17/22 14:00 03/17/22 14:00 Pulse Rate 87 Respiratory Rate Blood Pressure 120/61 Pulse Oximetry 92 MDM - Weakness <Hyma Shivam, PA-C - Last Filed: 03/16/22 19:51> Lab Data Result diagrams: 03/16/22 15:40 03/16/22 15:40 Labs: Lab Results 03/16/22 03/16/22 03/16/22 Range/Units 15:40 15:40 15:40 WBC 8.4 (4.5-11.0) X10^3/uL RBC 4.50 (4.5-5.9) X10^6/uL Hgb 12.8 L (13.5-17.5) g/dL Hct 38.4 L (41-53) % MCV 85.3 (80-100) fL MCH 28.4 (26-34) PG MCHC 33.2 (30-36) % RDW 15.6 H (11.6-14.8) % Plt Count 324 (150-400) X10^3/uL Neut % (Auto) 68.3 (50-75) % Lymph % (Auto) 20.0 L (25-40) % [place] % (Auto) 7.2 (3-14) % Eos % (Auto) 4.3 H (2-4) % Baso % (Auto) 0.2 (0-2) % Neut # (Auto) 5700 (9295-3117) /uL Lymph # (Auto) 1700 (5747-2328) /uL [place] # (Auto) 600 (0-900) /uL Eos # (Auto) 400 (0-450) /uL Baso # (Auto) 0 (0-100) /uL ESR (0-15) MM/HR Sodium 135 L (137-145) mmol/L Potassium 4.5 (3.4-5.1) mmol/L Chloride 98 (98-107) mmol/L Carbon Dioxide 28 (22-32) mmol/L BUN 13 (9-20) mg/dL Creatinine 0.90 (0.66-1.25) mg/dL Estimated GFR > 60 (>60) mL/min BUN/Creatinine Ratio 14.4 (6-22) Glucose 127 H (80-110) mg/dL Lactate 2.1 (0.7-2.1) mmol/L Calcium 9.6 (8.4-10.2) mg/dL Total Bilirubin 0.7 (0.2-1.3) mg/dL AST 20 (17-59) IU/L ALT 22 (<50) IU/L Alkaline Phosphatase 69 (38-126) U/L Total Creatine Kinase 60 (55-170) U/L CK-MB (CK-2) TNP CK-MB (CK-2) Rel Index TNP Troponin I < 0.012 (0.01-0.034) ng/mL C-Reactive Protein (<1.0) mg/dL Total Protein 7.6 (6.3-8.2) g/dL Albumin 4.3 (3.5-5.0) g/dL Globulin 3.3 (1.7-4.1) g/dL Albumin/Globulin Ratio 1.3 (1.0-2.8) Lipase 60 (23-300) U/L Vitamin B12 (239-931) pg/mL Procalcitonin (<0.5) ng/mL TSH (0.47-4.68) uIU/mL SARS-CoV-2 (PCR) (Negative) 03/16/22 03/16/22 03/16/22 Range/Units 15:40 15:40 15:40 WBC (4.5-11.0) X10^3/uL RBC (4.5-5.9) X10^6/uL Hgb (13.5-17.5) g/dL Hct (41-53) % MCV (80-100) fL MCH (26-34) PG MCHC (30-36) % RDW (11.6-14.8) % Plt Count (150-400) X10^3/uL Neut % (Auto) (50-75) % Lymph % (Auto) (25-40) % [place] % (Auto) (3-14) % Eos % (Auto) (2-4) % Baso % (Auto) (0-2) % Neut # (Auto) (3195-9425) /uL Lymph # (Auto) (3571-8547) /uL [place] # (Auto) (0-900) /uL Eos # (Auto) (0-450) /uL Baso # (Auto) (0-100) /uL ESR (0-15) MM/HR Sodium (137-145) mmol/L Potassium (3.4-5.1) mmol/L Chloride (98-107) mmol/L Carbon Dioxide (22-32) mmol/L BUN (9-20) mg/dL Creatinine (0.66-1.25) mg/dL Estimated GFR (>60) mL/min BUN/Creatinine Ratio (6-22) Glucose (80-110) mg/dL Lactate (0.7-2.1) mmol/L Calcium (8.4-10.2) mg/dL Total Bilirubin (0.2-1.3) mg/dL AST (17-59) IU/L ALT (<50) IU/L Alkaline Phosphatase (38-126) U/L Total Creatine Kinase (55-170) U/L CK-MB (CK-2) CK-MB (CK-2) Rel Index Troponin I (0.01-0.034) ng/mL C-Reactive Protein (<1.0) mg/dL Total Protein (6.3-8.2) g/dL Albumin (3.5-5.0) g/dL Globulin (1.7-4.1) g/dL Albumin/Globulin Ratio (1.0-2.8) Lipase (23-300) U/L Vitamin B12 742 (239-931) pg/mL Procalcitonin 0.05 (<0.5) ng/mL TSH 0.717 (0.47-4.68) uIU/mL SARS-CoV-2 (PCR) (Negative) 03/16/22 03/16/22 03/16/22 Range/Units 15:40 15:40 19:00 WBC (4.5-11.0) X10^3/uL RBC (4.5-5.9) X10^6/uL Hgb (13.5-17.5) g/dL Hct (41-53) % MCV (80-100) fL MCH (26-34) PG MCHC (30-36) % RDW (11.6-14.8) % Plt Count (150-400) X10^3/uL Neut % (Auto) (50-75) % Lymph % (Auto) (25-40) % [place] % (Auto) (3-14) % Eos % (Auto) (2-4) % Baso % (Auto) (0-2) % Neut # (Auto) (4318-6341) /uL Lymph # (Auto) (5376-0493) /uL [place] # (Auto) (0-900) /uL Eos # (Auto) (0-450) /uL Baso # (Auto) (0-100) /uL ESR 14 (0-15) MM/HR Sodium (137-145) mmol/L Potassium (3.4-5.1) mmol/L Chloride (98-107) mmol/L Carbon Dioxide (22-32) mmol/L BUN (9-20) mg/dL Creatinine (0.66-1.25) mg/dL Estimated GFR (>60) mL/min BUN/Creatinine Ratio (6-22) Glucose (80-110) mg/dL Lactate 1.4 (0.7-2.1) mmol/L Calcium (8.4-10.2) mg/dL Total Bilirubin (0.2-1.3) mg/dL AST (17-59) IU/L ALT (<50) IU/L Alkaline Phosphatase (38-126) U/L Total Creatine Kinase (55-170) U/L CK-MB (CK-2) CK-MB (CK-2) Rel Index Troponin I (0.01-0.034) ng/mL C-Reactive Protein < 0.5 (<1.0) mg/dL Total Protein (6.3-8.2) g/dL Albumin (3.5-5.0) g/dL Globulin (1.7-4.1) g/dL Albumin/Globulin Ratio (1.0-2.8) Lipase (23-300) U/L Vitamin B12 (239-931) pg/mL Procalcitonin (<0.5) ng/mL TSH (0.47-4.68) uIU/mL SARS-CoV-2 (PCR) (Negative) 03/16/22 Range/Units 20:15 WBC (4.5-11.0) X10^3/uL RBC (4.5-5.9) X10^6/uL Hgb (13.5-17.5) g/dL Hct (41-53) % MCV (80-100) fL MCH (26-34) PG MCHC (30-36) % RDW (11.6-14.8) % Plt Count (150-400) X10^3/uL Neut % (Auto) (50-75) % Lymph % (Auto) (25-40) % [place] % (Auto) (3-14) % Eos % (Auto) (2-4) % Baso % (Auto) (0-2) % Neut # (Auto) (2021-1541) /uL Lymph # (Auto) (5706-9413) /uL [place] # (Auto) (0-900) /uL Eos # (Auto) (0-450) /uL Baso # (Auto) (0-100) /uL ESR (0-15) MM/HR Sodium (137-145) mmol/L Potassium (3.4-5.1) mmol/L Chloride (98-107) mmol/L Carbon Dioxide (22-32) mmol/L BUN (9-20) mg/dL Creatinine (0.66-1.25) mg/dL Estimated GFR (>60) mL/min BUN/Creatinine Ratio (6-22) Glucose (80-110) mg/dL Lactate (0.7-2.1) mmol/L Calcium (8.4-10.2) mg/dL Total Bilirubin (0.2-1.3) mg/dL AST (17-59) IU/L ALT (<50) IU/L Alkaline Phosphatase (38-126) U/L Total Creatine Kinase (55-170) U/L CK-MB (CK-2) CK-MB (CK-2) Rel Index Troponin I (0.01-0.034) ng/mL C-Reactive Protein (<1.0) mg/dL Total Protein (6.3-8.2) g/dL Albumin (3.5-5.0) g/dL Globulin (1.7-4.1) g/dL Albumin/Globulin Ratio (1.0-2.8) Lipase (23-300) U/L Vitamin B12 (239-931) pg/mL Procalcitonin (<0.5) ng/mL TSH (0.47-4.68) uIU/mL SARS-CoV-2 (PCR) Negative (Negative) Point of Care Testing Glucose POC 112 Urine Dip Bedside Urine Glucose Negative Bedside Urine Bilirubin - Negative Bedside Urine Ketone - Negative Urine Specific [place] 1.010 Bedside Urine Occult Blood - Negative Bedside Urine pH 6.5 Bedside Urine Protein - Negative Bedside Urine Urobilinogen - Negative Bedside Urine Nitrite - Negative Bedside Urine Leukocytes - Negative Esterase Imaging Data Chest x-ray: Radiologist Impression: PROCEDURE:? XR CHEST 1V ? INDICATIONS:? weakness ? TECHNIQUE:? One view of the chest was acquired.? ? COMPARISON:? [facility], CR, XR CHEST 1V, 03/01/2022, 9:47. ? FINDINGS:? ? Surgical changes and devices:? None.? ? Lungs and pleura:? Lungs are clear.? No pleural effusions or pneumothorax.? ? Mediastinum:? Mediastinal contours appear normal.? Heart size is normal.? ? Bones and chest wall:? No suspicious bony lesions.? Overlying soft tissues appear unremarkable.? ? IMPRESSION:? No acute process. ? ? Dictated by: Beto Olson M.D. on 03/16/2022 at 16:15 ? ? Approved by: Beto Olson M.D. on 03/16/2022 at 16:16 ? MDM Narrative Medical decision making narrative: 71-year-old male with past medical history diabetes, hypertension, dyslipidemia presents to the ED with worsening weakness, mobility issues. Concern for UTI versus electrolyte derangements versus dehydration versus ACS versus other. Will obtain EKG, chest x-ray, labs, troponin, UA, CT head, CT c-spine. Will reassess. Lab, urine, EKG, CXR w/o acute findings. Peding CT head, c-spine. During the ED stay, patient required a 3 person assist to move. Social work was consulted. Patient will board in the ED awaiting a SNF placement. Care of the patient is handed off to Dr. Magdalene Negrete. <Magdalene Negrete, DO - Last Filed: 03/18/22 02:03> Lab Data Labs: Lab Results 03/16/22 03/16/22 03/16/22 Range/Units 15:40 15:40 15:40 WBC 8.4 (4.5-11.0) X10^3/uL RBC 4.50 (4.5-5.9) X10^6/uL Hgb 12.8 L (13.5-17.5) g/dL Hct 38.4 L (41-53) % MCV 85.3 (80-100) fL MCH 28.4 (26-34) PG MCHC 33.2 (30-36) % RDW 15.6 H (11.6-14.8) % Plt Count 324 (150-400) X10^3/uL Neut % (Auto) 68.3 (50-75) % Lymph % (Auto) 20.0 L (25-40) % [place] % (Auto) 7.2 (3-14) % Eos % (Auto) 4.3 H (2-4) % Baso % (Auto) 0.2 (0-2) % Neut # (Auto) 5700 (1878-8572) /uL Lymph # (Auto) 1700 (1896-3332) /uL [place] # (Auto) 600 (0-900) /uL Eos # (Auto) 400 (0-450) /uL Baso # (Auto) 0 (0-100) /uL ESR (0-15) MM/HR Sodium 135 L (137-145) mmol/L Potassium 4.5 (3.4-5.1) mmol/L Chloride 98 (98-107) mmol/L Carbon Dioxide 28 (22-32) mmol/L BUN 13 (9-20) mg/dL Creatinine 0.90 (0.66-1.25) mg/dL Estimated GFR > 60 (>60) mL/min BUN/Creatinine Ratio 14.4 (6-22) Glucose 127 H (80-110) mg/dL Lactate 2.1 (0.7-2.1) mmol/L Calcium 9.6 (8.4-10.2) mg/dL Total Bilirubin 0.7 (0.2-1.3) mg/dL AST 20 (17-59) IU/L ALT 22 (<50) IU/L Alkaline Phosphatase 69 (38-126) U/L Total Creatine Kinase 60 (55-170) U/L CK-MB (CK-2) TNP CK-MB (CK-2) Rel Index TNP Troponin I < 0.012 (0.01-0.034) ng/mL C-Reactive Protein (<1.0) mg/dL Total Protein 7.6 (6.3-8.2) g/dL Albumin 4.3 (3.5-5.0) g/dL Globulin 3.3 (1.7-4.1) g/dL Albumin/Globulin Ratio 1.3 (1.0-2.8) Lipase 60 (23-300) U/L Vitamin B12 (239-931) pg/mL Procalcitonin (<0.5) ng/mL TSH (0.47-4.68) uIU/mL SARS-CoV-2 (PCR) (Negative) 03/16/22 03/16/22 03/16/22 Range/Units 15:40 15:40 15:40 WBC (4.5-11.0) X10^3/uL RBC (4.5-5.9) X10^6/uL Hgb (13.5-17.5) g/dL Hct (41-53) % MCV (80-100) fL MCH (26-34) PG MCHC (30-36) % RDW (11.6-14.8) % Plt Count (150-400) X10^3/uL Neut % (Auto) (50-75) % Lymph % (Auto) (25-40) % [place] % (Auto) (3-14) % Eos % (Auto) (2-4) % Baso % (Auto) (0-2) % Neut # (Auto) (8214-8666) /uL Lymph # (Auto) (7166-5947) /uL [place] # (Auto) (0-900) /uL Eos # (Auto) (0-450) /uL Baso # (Auto) (0-100) /uL ESR (0-15) MM/HR Sodium (137-145) mmol/L Potassium (3.4-5.1) mmol/L Chloride (98-107) mmol/L Carbon Dioxide (22-32) mmol/L BUN (9-20) mg/dL Creatinine (0.66-1.25) mg/dL Estimated GFR (>60) mL/min BUN/Creatinine Ratio (6-22) Glucose (80-110) mg/dL Lactate (0.7-2.1) mmol/L Calcium (8.4-10.2) mg/dL Total Bilirubin (0.2-1.3) mg/dL AST (17-59) IU/L ALT (<50) IU/L Alkaline Phosphatase (38-126) U/L Total Creatine Kinase (55-170) U/L CK-MB (CK-2) CK-MB (CK-2) Rel Index Troponin I (0.01-0.034) ng/mL C-Reactive Protein (<1.0) mg/dL Total Protein (6.3-8.2) g/dL Albumin (3.5-5.0) g/dL Globulin (1.7-4.1) g/dL Albumin/Globulin Ratio (1.0-2.8) Lipase (23-300) U/L Vitamin B12 742 (239-931) pg/mL Procalcitonin 0.05 (<0.5) ng/mL TSH 0.717 (0.47-4.68) uIU/mL SARS-CoV-2 (PCR) (Negative) 03/16/22 03/16/22 03/16/22 Range/Units 15:40 15:40 19:00 WBC (4.5-11.0) X10^3/uL RBC (4.5-5.9) X10^6/uL Hgb (13.5-17.5) g/dL Hct (41-53) % MCV (80-100) fL MCH (26-34) PG MCHC (30-36) % RDW (11.6-14.8) % Plt Count (150-400) X10^3/uL Neut % (Auto) (50-75) % Lymph % (Auto) (25-40) % [place] % (Auto) (3-14) % Eos % (Auto) (2-4) % Baso % (Auto) (0-2) % Neut # (Auto) (9807-2197) /uL Lymph # (Auto) (6252-2765) /uL [place] # (Auto) (0-900) /uL Eos # (Auto) (0-450) /uL Baso # (Auto) (0-100) /uL ESR 14 (0-15) MM/HR Sodium (137-145) mmol/L Potassium (3.4-5.1) mmol/L Chloride (98-107) mmol/L Carbon Dioxide (22-32) mmol/L BUN (9-20) mg/dL Creatinine (0.66-1.25) mg/dL Estimated GFR (>60) mL/min BUN/Creatinine Ratio (6-22) Glucose (80-110) mg/dL Lactate 1.4 (0.7-2.1) mmol/L Calcium (8.4-10.2) mg/dL Total Bilirubin (0.2-1.3) mg/dL AST (17-59) IU/L ALT (<50) IU/L Alkaline Phosphatase (38-126) U/L Total Creatine Kinase (55-170) U/L CK-MB (CK-2) CK-MB (CK-2) Rel Index Troponin I (0.01-0.034) ng/mL C-Reactive Protein < 0.5 (<1.0) mg/dL Total Protein (6.3-8.2) g/dL Albumin (3.5-5.0) g/dL Globulin (1.7-4.1) g/dL Albumin/Globulin Ratio (1.0-2.8) Lipase (23-300) U/L Vitamin B12 (239-931) pg/mL Procalcitonin (<0.5) ng/mL TSH (0.47-4.68) uIU/mL SARS-CoV-2 (PCR) (Negative) 03/16/22 Range/Units 20:15 WBC (4.5-11.0) X10^3/uL RBC (4.5-5.9) X10^6/uL Hgb (13.5-17.5) g/dL Hct (41-53) % MCV (80-100) fL MCH (26-34) PG MCHC (30-36) % RDW (11.6-14.8) % Plt Count (150-400) X10^3/uL Neut % (Auto) (50-75) % Lymph % (Auto) (25-40) % [place] % (Auto) (3-14) % Eos % (Auto) (2-4) % Baso % (Auto) (0-2) % Neut # (Auto) (2840-3214) /uL Lymph # (Auto) (4866-6611) /uL [place] # (Auto) (0-900) /uL Eos # (Auto) (0-450) /uL Baso # (Auto) (0-100) /uL ESR (0-15) MM/HR Sodium (137-145) mmol/L Potassium (3.4-5.1) mmol/L Chloride (98-107) mmol/L Carbon Dioxide (22-32) mmol/L BUN (9-20) mg/dL Creatinine (0.66-1.25) mg/dL Estimated GFR (>60) mL/min BUN/Creatinine Ratio (6-22) Glucose (80-110) mg/dL Lactate (0.7-2.1) mmol/L Calcium (8.4-10.2) mg/dL Total Bilirubin (0.2-1.3) mg/dL AST (17-59) IU/L ALT (<50) IU/L Alkaline Phosphatase (38-126) U/L Total Creatine Kinase (55-170) U/L CK-MB (CK-2) CK-MB (CK-2) Rel Index Troponin I (0.01-0.034) ng/mL C-Reactive Protein (<1.0) mg/dL Total Protein (6.3-8.2) g/dL Albumin (3.5-5.0) g/dL Globulin (1.7-4.1) g/dL Albumin/Globulin Ratio (1.0-2.8) Lipase (23-300) U/L Vitamin B12 (239-931) pg/mL Procalcitonin (<0.5) ng/mL TSH (0.47-4.68) uIU/mL SARS-CoV-2 (PCR) Negative (Negative) Point of Care Testing Glucose POC 112 Urine Dip Bedside Urine Glucose Negative Bedside Urine Bilirubin - Negative Bedside Urine Ketone - Negative Urine Specific [place] 1.010 Bedside Urine Occult Blood - Negative Bedside Urine pH 6.5 Bedside Urine Protein - Negative Bedside Urine Urobilinogen - Negative Bedside Urine Nitrite - Negative Bedside Urine Leukocytes - Negative Esterase Imaging Data CT - cervical spine: Radiologist Impression: CT Scan Report Signed Patient: Andi Anna MR#: [id number] : 1950 Acct:[id number] Age/Sex: 71 / M Date of Service: 03/16/22 Loc: ED Accession Number: [id number] ?? Procedure: CT cervical spine wo con Ordering Provider: Rosaura Langley P.A-C PROCEDURE:? CT CERVICAL SPINE WO CON ? INDICATIONS:? Neck pain ? TECHNIQUE:? Noncontrast 3 mm thick sections acquired from the skull base to the T4 level.? Sagittal and coronal reformats were then constructed.? For radiation dose reduction, the following was used:? automated exposure control, adjustment of mA and/or kV according to patient size.? ? COMPARISON:? None. ? FINDINGS:? Image quality:? There is motion artifact limiting evaluation.? ? Bones:? No fractures or subluxation.? There is straightening of the cervical lordosis.? Minimal anterolisthesis demonstrated at C3-C4.? There is multilevel degenerative disc disease including moderate degeneration in the mid and lower cervical spine at C3 through C7.? There is also multilevel facet joint arthropathy throughout the cervical spine.? There is fusion of the right facet at C2-C3.? Visualized superior ribs are intact.? ? Soft tissues:? Prevertebral soft tissues are normal in thickness.? No paravertebral hematomas.? No apical pneumothoraces.? ? ? IMPRESSION:? ? 1. No fracture or subluxation. ? ? ? Dictated by: Andre Barton M.D. on 03/16/2022 at 19:47 ? ? Approved by: Andre Barton M.D. on 03/16/2022 at 19:49 ? CT scan - head: Radiologist Impression: Andi sandra MR#: [id number] : 1950 Acct:[id number] Age/Sex: 71 / M Date of Service: 03/16/22 Loc: ED Accession Number: [id number] ?? Procedure: CT head/brain wo con Ordering Provider: Magdalene Negrete D.O. PROCEDURE:? CT HEAD/BRAIN WO CON ? INDICATIONS:? increased weakness ? TECHNIQUE:? Noncontrast 4.5 mm thick angled axial sections acquired from the foramen magnum to the vertex, with coronal and sagittal reformats.? For radiation dose reduction, the following was used:? automated exposure control, adjustment of mA and/or kV according to patient size.? ? COMPARISON:? None. ? FINDINGS:? Image quality:? Excellent.? ? CSF spaces:? Basal cisterns are patent.? No extra-axial fluid collections.? There is mild cerebral volume loss, with resultant ventricular and sulcal prominence.? ? Brain:? No intracranial hemorrhage, mass, or mass effect.? There are subcortical, periventricular and deep white matter hypodensities consistent with mild chronic small vessel ischemic changes.? The bowens-white matter junction appears preserved.? There is intracranial internal carotid artery atherosclerosis.? ? Skull and face:? Calvarium and visualized facial bones appear intact, without suspicious lesions.? ? Sinuses:? Visualized sinuses and mastoids are clear.? ? IMPRESSION:? ? 1. No acute intracranial abnormality. ? 2. Mild chronic white matter small vessel ischemic changes and cerebral volume loss.? ? Dictated by: Andre Barton M.D. on 03/16/2022 at 20:37 ? ? Approved by: Andre Barton M.D. on 03/16/2022 at 20:39 ? [facility] Narrative Medical decision making narrative: 71-year-old male with past medical history diabetes, hypertension, dyslipidemia presents to the ED with worsening weakness, mobility issues. Concern for UTI versus electrolyte derangements versus dehydration versus ACS versus other. Will obtain EKG, chest x-ray, labs, troponin, UA, CT head, CT c-spine. Will reassess. Lab, urine, EKG, CXR w/o acute findings. Peding CT head, c-spine. During the ED stay, patient required a 3 person assist to move. Social work was consulted. Patient will board in the ED awaiting a SNF placement. Care of the patient is handed off to Dr. Magdalene Negrete. Penelope-patient signed out to me. Increasing weakness head CT and workup in the emergency department negative. Waiting for sniff placement PT evaluation today. Signed out to Dr. Marquez. <Andi Marquez DO - Last Filed: 03/17/22 15:52> Lab Data Attestation: I reviewed the patient's lab results. Labs: Lab Results 03/16/22 03/16/22 03/16/22 Range/Units 15:40 15:40 15:40 WBC 8.4 (4.5-11.0) X10^3/uL RBC 4.50 (4.5-5.9) X10^6/uL Hgb 12.8 L (13.5-17.5) g/dL Hct 38.4 L (41-53) % MCV 85.3 (80-100) fL MCH 28.4 (26-34) PG MCHC 33.2 (30-36) % RDW 15.6 H (11.6-14.8) % Plt Count 324 (150-400) X10^3/uL Neut % (Auto) 68.3 (50-75) % Lymph % (Auto) 20.0 L (25-40) % [place] % (Auto) 7.2 (3-14) % Eos % (Auto) 4.3 H (2-4) % Baso % (Auto) 0.2 (0-2) % Neut # (Auto) 5700 (0334-7386) /uL Lymph # (Auto) 1700 (0743-0481) /uL [place] # (Auto) 600 (0-900) /uL Eos # (Auto) 400 (0-450) /uL Baso # (Auto) 0 (0-100) /uL ESR (0-15) MM/HR Sodium 135 L (137-145) mmol/L Potassium 4.5 (3.4-5.1) mmol/L Chloride 98 (98-107) mmol/L Carbon Dioxide 28 (22-32) mmol/L BUN 13 (9-20) mg/dL Creatinine 0.90 (0.66-1.25) mg/dL Estimated GFR > 60 (>60) mL/min BUN/Creatinine Ratio 14.4 (6-22) Glucose 127 H (80-110) mg/dL Lactate 2.1 (0.7-2.1) mmol/L Calcium 9.6 (8.4-10.2) mg/dL Total Bilirubin 0.7 (0.2-1.3) mg/dL AST 20 (17-59) IU/L ALT 22 (<50) IU/L Alkaline Phosphatase 69 (38-126) U/L Total Creatine Kinase 60 (55-170) U/L CK-MB (CK-2) TNP CK-MB (CK-2) Rel Index TNP Troponin I < 0.012 (0.01-0.034) ng/mL C-Reactive Protein (<1.0) mg/dL Total Protein 7.6 (6.3-8.2) g/dL Albumin 4.3 (3.5-5.0) g/dL Globulin 3.3 (1.7-4.1) g/dL Albumin/Globulin Ratio 1.3 (1.0-2.8) Lipase 60 (23-300) U/L Vitamin B12 (239-931) pg/mL Procalcitonin (<0.5) ng/mL TSH (0.47-4.68) uIU/mL SARS-CoV-2 (PCR) (Negative) 03/16/22 03/16/22 03/16/22 Range/Units 15:40 15:40 15:40 WBC (4.5-11.0) X10^3/uL RBC (4.5-5.9) X10^6/uL Hgb (13.5-17.5) g/dL Hct (41-53) % MCV (80-100) fL MCH (26-34) PG MCHC (30-36) % RDW (11.6-14.8) % Plt Count (150-400) X10^3/uL Neut % (Auto) (50-75) % Lymph % (Auto) (25-40) % [place] % (Auto) (3-14) % Eos % (Auto) (2-4) % Baso % (Auto) (0-2) % Neut # (Auto) (0475-2512) /uL Lymph # (Auto) (6138-3793) /uL [place] # (Auto) (0-900) /uL Eos # (Auto) (0-450) /uL Baso # (Auto) (0-100) /uL ESR (0-15) MM/HR Sodium (137-145) mmol/L Potassium (3.4-5.1) mmol/L Chloride (98-107) mmol/L Carbon Dioxide (22-32) mmol/L BUN (9-20) mg/dL Creatinine (0.66-1.25) mg/dL Estimated GFR (>60) mL/min BUN/Creatinine Ratio (6-22) Glucose (80-110) mg/dL Lactate (0.7-2.1) mmol/L Calcium (8.4-10.2) mg/dL Total Bilirubin (0.2-1.3) mg/dL AST (17-59) IU/L ALT (<50) IU/L Alkaline Phosphatase (38-126) U/L Total Creatine Kinase (55-170) U/L CK-MB (CK-2) CK-MB (CK-2) Rel Index Troponin I (0.01-0.034) ng/mL C-Reactive Protein (<1.0) mg/dL Total Protein (6.3-8.2) g/dL Albumin (3.5-5.0) g/dL Globulin (1.7-4.1) g/dL Albumin/Globulin Ratio (1.0-2.8) Lipase (23-300) U/L Vitamin B12 742 (239-931) pg/mL Procalcitonin 0.05 (<0.5) ng/mL TSH 0.717 (0.47-4.68) uIU/mL SARS-CoV-2 (PCR) (Negative) 03/16/22 03/16/22 03/16/22 Range/Units 15:40 15:40 19:00 WBC (4.5-11.0) X10^3/uL RBC (4.5-5.9) X10^6/uL Hgb (13.5-17.5) g/dL Hct (41-53) % MCV (80-100) fL MCH (26-34) PG MCHC (30-36) % RDW (11.6-14.8) % Plt Count (150-400) X10^3/uL Neut % (Auto) (50-75) % Lymph % (Auto) (25-40) % [place] % (Auto) (3-14) % Eos % (Auto) (2-4) % Baso % (Auto) (0-2) % Neut # (Auto) (1441-1076) /uL Lymph # (Auto) (4300-9313) /uL [place] # (Auto) (0-900) /uL Eos # (Auto) (0-450) /uL Baso # (Auto) (0-100) /uL ESR 14 (0-15) MM/HR Sodium (137-145) mmol/L Potassium (3.4-5.1) mmol/L Chloride (98-107) mmol/L Carbon Dioxide (22-32) mmol/L BUN (9-20) mg/dL Creatinine (0.66-1.25) mg/dL Estimated GFR (>60) mL/min BUN/Creatinine Ratio (6-22) Glucose (80-110) mg/dL Lactate 1.4 (0.7-2.1) mmol/L Calcium (8.4-10.2) mg/dL Total Bilirubin (0.2-1.3) mg/dL AST (17-59) IU/L ALT (<50) IU/L Alkaline Phosphatase (38-126) U/L Total Creatine Kinase (55-170) U/L CK-MB (CK-2) CK-MB (CK-2) Rel Index Troponin I (0.01-0.034) ng/mL C-Reactive Protein < 0.5 (<1.0) mg/dL Total Protein (6.3-8.2) g/dL Albumin (3.5-5.0) g/dL Globulin (1.7-4.1) g/dL Albumin/Globulin Ratio (1.0-2.8) Lipase (23-300) U/L Vitamin B12 (239-931) pg/mL Procalcitonin (<0.5) ng/mL TSH (0.47-4.68) uIU/mL SARS-CoV-2 (PCR) (Negative) 03/16/22 Range/Units 20:15 WBC (4.5-11.0) X10^3/uL RBC (4.5-5.9) X10^6/uL Hgb (13.5-17.5) g/dL Hct (41-53) % MCV (80-100) fL MCH (26-34) PG MCHC (30-36) % RDW (11.6-14.8) % Plt Count (150-400) X10^3/uL Neut % (Auto) (50-75) % Lymph % (Auto) (25-40) % [place] % (Auto) (3-14) % Eos % (Auto) (2-4) % Baso % (Auto) (0-2) % Neut # (Auto) (0551-4256) /uL Lymph # (Auto) (8755-3603) /uL [place] # (Auto) (0-900) /uL Eos # (Auto) (0-450) /uL Baso # (Auto) (0-100) /uL ESR (0-15) MM/HR Sodium (137-145) mmol/L Potassium (3.4-5.1) mmol/L Chloride (98-107) mmol/L Carbon Dioxide (22-32) mmol/L BUN (9-20) mg/dL Creatinine (0.66-1.25) mg/dL Estimated GFR (>60) mL/min BUN/Creatinine Ratio (6-22) Glucose (80-110) mg/dL Lactate (0.7-2.1) mmol/L Calcium (8.4-10.2) mg/dL Total Bilirubin (0.2-1.3) mg/dL AST (17-59) IU/L ALT (<50) IU/L Alkaline Phosphatase (38-126) U/L Total Creatine Kinase (55-170) U/L CK-MB (CK-2) CK-MB (CK-2) Rel Index Troponin I (0.01-0.034) ng/mL C-Reactive Protein (<1.0) mg/dL Total Protein (6.3-8.2) g/dL Albumin (3.5-5.0) g/dL Globulin (1.7-4.1) g/dL Albumin/Globulin Ratio (1.0-2.8) Lipase (23-300) U/L Vitamin B12 (239-931) pg/mL Procalcitonin (<0.5) ng/mL TSH (0.47-4.68) uIU/mL SARS-CoV-2 (PCR) Negative (Negative) Point of Care Testing Glucose POC 112 Urine Dip Bedside Urine Glucose Negative Bedside Urine Bilirubin - Negative Bedside Urine Ketone - Negative Urine Specific [place] 1.010 Bedside Urine Occult Blood - Negative Bedside Urine pH 6.5 Bedside Urine Protein - Negative Bedside Urine Urobilinogen - Negative Bedside Urine Nitrite - Negative Bedside Urine Leukocytes - Negative Esterase Imaging Data Brain MRI: Radiologist Impression: [address] [address] Magnetic Resonance Report Signed Patient: Andi Anna MR#: [id number] : 1950 Acct:[id number] Age/Sex: 71 / M Date of Service: 03/17/22 Loc: ED Accession Number: [id number] ?? Procedure: MR head/brain wo/w con Ordering Provider: Andi Marquez D.O. PROCEDURE:? MR HEAD/BRAIN WO/W CON ? INDICATIONS:? Progressive muscular weakness upper and lower extremities ? TECHNIQUE:? Noncontrast axial T1 spin echo, axial T2 fast spin echo, sagittal and axial FLAIR, axial gradient echo, axial diffusion and ADC, coronal thin-slice T2 FSE through the brain.? Optional contrast, followed by axial and coronal and sagittal 3D VIBE or T1 spin echo with fat saturation sequences through the brain.? ? COMPARISON:? None. ? FINDINGS:? Image quality:? Excellent.? ? CSF spaces:? Ventricles are normal in size and shape.? Basal cisterns are patent.? No extra-axial fluid collections.? ? Brain:? No intracranial bleeds or mass effects.? No abnormal intracranial enhancement.? Bowens-white matter interface appears intact.? Diffusion weighted images demonstrate no acute ischemic insults.? Brainstem appear normal.? Normal intravascular flow voids are present.? The hippocampal regions appear normal and symmetric in morphology.? ? Skull and face:? Calvarial marrow signal is normal.? Orbits appear normal.? ? Sinuses:? Sinuses and mastoids are clear.? ? ? IMPRESSION:? 1. Mild volume loss.? Minimal small vessel ischemic disease. 2. No acute process.? No recent infarct.? ? ? Dictated by: Beto Olson M.D. on 03/17/2022 at 9:50 ? ? Approved by: Beto Olson M.D. on 03/17/2022 at 9:51 Discharge Plan Departure Patient Disposition: Admitted as Observation Clinical Impression: Neuropathy, Upper extremity weakness Admit Date/Time: 03/17/22 14:13 Admit Provider: Duarte Mike <Andi Marquez, DO - Last Filed: 03/17/22 15:52> Cosign ED Attending Cosignature Attestation: Dr Marquez Co-Sign Statement: I was available for consultation during this patient's emergency department visit. This chart is signed by myself for administrative purposes only. I did not have direct contact with this patient during this visit. They were seen independently by the APC.
--- NOTE | 2022-03-16 17:41 | DI.CT.S_ITS ---
PROCEDURE: CT CERVICAL SPINE WO CON INDICATIONS: Neck pain TECHNIQUE: Noncontrast 3 mm thick sections acquired from the skull base to the T4 level. Sagittal and coronal reformats were then constructed. For radiation dose reduction, the following was used: automated exposure control, adjustment of mA and/or kV according to patient size. COMPARISON: None. FINDINGS: Image quality: There is motion artifact limiting evaluation. Bones: No fractures or subluxation. There is straightening of the cervical lordosis. Minimal anterolisthesis demonstrated at C3-C4. There is multilevel degenerative disc disease including moderate degeneration in the mid and lower cervical spine at C3 through C7. There is also multilevel facet joint arthropathy throughout the cervical spine. There is fusion of the right facet at C2-C3. Visualized superior ribs are intact. Soft tissues: Prevertebral soft tissues are normal in thickness. No paravertebral hematomas. No apical pneumothoraces. IMPRESSION: 1. No fracture or subluxation. Dictated by: Andre Barton M.D. on 03/16/2022 at 19:47 Approved by: Andre Barton M.D. on 03/16/2022 at 19:49
[2022-03-16 17:57] LABS: Reflexed Lactate in 2 Hours Y
--- NOTE | 2022-03-16 18:21 | PC.NURSE ---
Patient requiring x2 RN assistance with a gait belt to stand up and pivot to/from wheelchair, unable to stand self by pushing up on assisted devices. Pt can take a few steps with x2 RN assist and coaching, unable to do independently. reports difficult time to get pt down 3 steps and to the car with another family member prior to coming to ER. Shivam BLISS aware.
--- NOTE | 2022-03-16 19:01 | CM.SWNOTE ---
ED SW Note Pt is a 71-year-old male with past medical history diabetes, hypertension, dyslipidemia presents to the ED with worsening weakness, mobility issues. Pt has Medicare A+B and . Pt's PCP is LUIS FERNANDO Lambert. SW consulted to assist with safe discharge planning for home. Pt has experienced increasing weakness following a fall that occurred on 02/17/22. At this time, pt is a 3 person assist with transfers. Pt lives with his Brooklynn, who is unable to physically assist him with transfers and ambulation. Pt and report that they can get occasionally assistance from their adult son Remi but he is not able to stay with them. Pt was engaged with outpatient PT following a hip surgery and was set to restart services tomorrow, 03/17/22. SW inquired about HH and family is agreeable to referral but feel like they cannot safely support pt at home at this time. SW provided family with information on hospital bed rentals from [facility] as well as information on HH. SW consulted with ED Provider, who feels that pt is not safe to discharge home with his limited support and high needs. SW agrees and ED Provider will order PT to evaluate pt tomorrow to see if he meets criteria for SNF placement. Plan: [facility] will reach out to PT tomorrow 03/17 to conduct evaluation. [facility] will send SNF referrals if that is recommended level of care by PT. SAMMI Carter
[2022-03-16 19:20] LABS: Lactate 2HR (Lactic Acid Rflx) 1.4 mmol/L (0.7-2.1)
--- NOTE | 2022-03-16 19:42 | DI.CT.S_ITS ---
PROCEDURE: CT HEAD/BRAIN WO CON INDICATIONS: increased weakness TECHNIQUE: Noncontrast 4.5 mm thick angled axial sections acquired from the foramen magnum to the vertex, with coronal and sagittal reformats. For radiation dose reduction, the following was used: automated exposure control, adjustment of mA and/or kV according to patient size. COMPARISON: None. FINDINGS: Image quality: Excellent. CSF spaces: Basal cisterns are patent. No extra-axial fluid collections. There is mild cerebral volume loss, with resultant ventricular and sulcal prominence. Brain: No intracranial hemorrhage, mass, or mass effect. There are subcortical, periventricular and deep white matter hypodensities consistent with mild chronic small vessel ischemic changes. The min-white matter junction appears preserved. There is intracranial internal carotid artery atherosclerosis. Skull and face: Calvarium and visualized facial bones appear intact, without suspicious lesions. Sinuses: Visualized sinuses and mastoids are clear. IMPRESSION: 1. No acute intracranial abnormality. 2. Mild chronic white matter small vessel ischemic changes and cerebral volume loss. Dictated by: Andre Barton M.D. on 03/16/2022 at 20:37 Approved by: Andre Barton M.D. on 03/16/2022 at 20:39
[2022-03-16] MEDS: LIDOCAINE PATCH 1 EACH ADH..PATCH TOP (19:52)
[2022-03-16 20:23] LABS: Procalcitonin 0.05 ng/mL (<0.5)
[2022-03-16 20:48] LABS: COVID19 -Nasal RAPID Negative (Negative)
[2022-03-16] MEDS: SITAGLIPTIN 50 MG TABLET PO (21:13)
[2022-03-16] MEDS: TAMSULOSIN 0.4 MG CAPSULE PO (21:14)
[2022-03-16] MEDS: METFORMIN HCL 500 MG TABLET 1000 MG PO (21:14)
[2022-03-16] MEDS: PANTOPRAZOLE DR 20 MG TABLET PO (21:14)
[2022-03-16] MEDS: ATORVASTATIN 20 MG TABLET PO (21:14)
--- NOTE | 2022-03-16 23:16 | PC.NURSE ---
Pt uses CPAP at home, RT hooked pt to hospital CPAP but pt uncomfortable with face mask, attempted to reach by phone to bring his home one in but unable to get through. Educated pt staff can monitor his oxygen during night and wake him if starts to desat, pt agrees with plan.
[2022-03-17] VITALS (43 sets, daily range): BP systolic 106–158; BP diastolic 55–76; PULSE 68–96; RESP 17–20; TEMP 36.4–36.8; O2SAT 92–99; BMI 40.3
--- NOTE | 2022-03-17 02:11 | PC.NURSE ---
Assisted to use the urinal at this time - tolerated well - no other needs voiced at this time
--- NOTE | 2022-03-17 08:17 | DI.MRI.S_ITS ---
PROCEDURE: MR HEAD/BRAIN WO/W CON INDICATIONS: Progressive muscular weakness upper and lower extremities TECHNIQUE: Noncontrast axial T1 spin echo, axial T2 fast spin echo, sagittal and axial FLAIR, axial gradient echo, axial diffusion and ADC, coronal thin-slice T2 FSE through the brain. Optional contrast, followed by axial and coronal and sagittal 3D VIBE or T1 spin echo with fat saturation sequences through the brain. COMPARISON: None. FINDINGS: Image quality: Excellent. CSF spaces: Ventricles are normal in size and shape. Basal cisterns are patent. No extra-axial fluid collections. Brain: No intracranial bleeds or mass effects. No abnormal intracranial enhancement. Bowens-white matter interface appears intact. Diffusion weighted images demonstrate no acute ischemic insults. Brainstem appear normal. Normal intravascular flow voids are present. The hippocampal regions appear normal and symmetric in morphology. Skull and face: Calvarial marrow signal is normal. Orbits appear normal. Sinuses: Sinuses and mastoids are clear. IMPRESSION: 1. Mild volume loss. Minimal small vessel ischemic disease. 2. No acute process. No recent infarct. Dictated by: Beto Olson M.D. on 03/17/2022 at 9:50 Approved by: Beot Olson M.D. on 03/17/2022 at 9:51
[2022-03-17] MEDS: SITAGLIPTIN 50 MG TABLET PO ×2 (10:18→21:04)
[2022-03-17] MEDS: METFORMIN HCL 500 MG TABLET 1000 MG PO ×2 (10:18→21:04)
--- NOTE | 2022-03-17 10:22 | PC.NURSE ---
PT at bedside.
--- NOTE | 2022-03-17 10:53 | PT.IIE ---
Surgical History (Last Reviewed 03/16/22 @ 16:57 by Rosaura Langley PA-C) H/O vasectomy (1977) History of gastric bypass (1989) History of hernia repair History of orthopedic surgery History of surgery (2010) Hx of cardiac cath (2013) Hx of cholecystectomy (1989) Hx of tonsillectomy Medical History (Last Reviewed 03/16/22 @ 16:57 by Rosaura Langley PA-C) Diabetes Diminished hearing Easy bruisability GERD (gastroesophageal reflux disease) HLD (hyperlipidemia) Hypertension Knee pain, chronic Morbid obesity with BMI of 40.0-44.9, adult Obesity (BMI 30-39.9) Obstructive sleep apnea of adult Osteoarthritis Peptic ulcer (2006) Sinus drainage Type 2 diabetes mellitus Physical Therapy Inpatient Evaluation/Re-Eval M1 PT/OT-IP Prior Functional Status Start: 03/17/22 10:34 Freq: Status: Active Protocol: Document 03/17/22 10:35 [facility] (Rec: 03/17/22 10:53 [facility] [id number]) Medical Review Prior Functional Status Medical History Reviewed Yes Communication communication with nursing and Pt's prior to treatment Mobility and Gait pt underwent a total hip replacement on the left hip in November 2021. He had progressed to using a cane but after a vacation to [facility] in February 2022 he has become progressively weaker. He required use of a motorized scooter in [place] and then took a fall once home in landing on his knees. Since this time he has become progressively weaker and is no longer ambulating Activities of Daily Living and IADL's requires assistance for all ADL's Prior Functional Level (Other details) Prior to his vacation in November he was able to ambulate with a cane and was Ind with ADL's Social History Household Members spouse Number of Stairs To Enter/Railing? 3 stairs and no railing M2 PT-IP Current Condition Start: 03/17/22 10:34 Freq: Status: Active Protocol: Document 03/17/22 10:35 [facility] (Rec: 03/17/22 10:53 [facility] [id number]) Physical Therapy Current Condition Current Condition Evaluation Date 03/17/22 Treatment Diagnosis progressive weakness all 4 limbs Onset Date February 2022 M3 PT-IP Subjective Start: 03/17/22 10:34 Freq: Status: Active Protocol: Document 03/17/22 10:35 [facility] (Rec: 03/17/22 10:53 [facility] [id number]) Subjective Physical Therapy Visit Type Type Initial Evaluation Visit Start Time 10:00 Visit Stop Time 10:30 Total Visit Minutes 30 Physical Therapy Visit Comments Patient Comments pt describes progressive weakness in B UE and LE, his right hand is especially affected and he notes he is unable to lift his right hand to scratch his face Patient Goals pt agrees to SNF placement at this time while tests are being run to determine the cause of progressing weakness. His family would prefer a SNF in [facility] Pain Assessment Pain When Pain Assessed At Rest Pain Present Pain Present Pain Reported M4 PT-IP Mobility and Gait Start: 03/17/22 10:34 Freq: Status: Active Protocol: Document 03/17/22 10:35 [facility] (Rec: 03/17/22 10:53 [facility] [id number]) PT-Bed Mobility Assessment Rolling Type of Rolling Roll to Right Level of Assist Maximal Assistance M5 PT-IP Objective Assessments Start: 03/17/22 10:34 Freq: Status: Active Protocol: Document 03/17/22 10:35 [facility] (Rec: 03/17/22 10:53 [facility] [id number]) Orientation Orientation/Cognition Level of Alertness Alert Gross Range of Motion Upper Extremity ROM Assessment Bilaterally Impaired Impairments pt has limited AROM and mobility of both UE with right side more affected. 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 PROM with WFL Lower Extremity ROM Assessment Bilaterally Impaired Impairments Decreased AROM B, able to perform ankle pumps, heel slides to 50 degrees B, this action caused him to c/o neck pain and he then experienced muscle spams stopping the AROM attempts Strength Upper Extremity Strength Assessment Bilaterally Impaired Shoulder 2 Elbow 2 Wrist 2 Hand 2 Lower Extremity Strength Assessment Bilaterally Impaired Hip 3 Knee 3 Ankle 3 Comments Strength Comments pt is unable to take any resistance with MMT in either LE, muscle spasms and neck pain prevent further testing Sensation Assessment Sensation Gross Sensation WNL Muscle Tone Muscle Tone WNL Yes M7 PT-IP Assessment and Plan Start: 03/17/22 10:34 Freq: Status: Active Protocol: Document 03/17/22 10:35 [facility] (Rec: 03/17/22 10:53 [facility] [id number]) PT Summary Assessment and Plan Potential Rehabilitation Potential Fair Summary Impairments Pain,ROM,Strength,Balance,Bed Mobility,Transfers,Gait, Activity Tolerance Assessment Summary Jasiel is a 71 year old male with past medical history of diabeters, hypertension, dyslipidemia who presents to the ER with progressive weakness of B UE and LE. He underwent a Left RY in November of 2021. Pt reports he did rehab after surgery and got to the place where he was walking with a cane. Then early February he took a vacation to [facility]. It was in [place] that he noticed he was becomming progressively weaker. He needed to use a electric cart while on vacation due to weakness. Once home he took a fall landing on both knees and was seen in the ED on with bronchitis. His weakness has progressed and he notes he is at the point where he is unable to perform bed mobility or transfers on his own. The walker has become difficult to use as well. It takes 2+ people to transfer him at home. With PT consult today Jasiel demonstrated weakness in B UE/ LE. He was unable to hold strength against resistance for UE or LE. He needs max A for bed mobility. He has full sensation UE/LE. Muscle spasms in his Lower legs and neck pain limited his ability to peform a transfer to sit at the edge of the bed. His was present for the second half of his evaluation. Her plan is to obtain a hospital for their home. Both Jasiel and his agreed to SNF rehab at this time if it could be at a facility in [place]. Recommendations To Nursing Amount of Assist Needed Mechanical Lift Discharge Recommendations PT Discharge Recommendations SNF Rehab Other Discharge Recommendations Recommend SNF rehab and family requests a placement in [place] Transportation Needs at Discharge Stretcher/Ambulance
[2022-03-17 13:49] LABS: Thyroid Stimulating Hormone 0.717 uIU/mL (0.47-4.68)
[2022-03-17 14:04] LABS: C-Reactive Protein Quant < 0.5 mg/dL (<1.0)
[2022-03-17 14:08] LABS: Vitamin B12 742 pg/mL (239-931)
[2022-03-17 14:21] LABS: Erythrocyte Sedimentation Rate 14 MM/HR (0-15)
--- NOTE | 2022-03-17 15:07 | CM.IDA ---
DCP Assessment Patient is 71 y/o male who presents to ED due to concern for recent decline in mobility and weakness. Patient's PCP is LUIS FERNANDO Lambert. Patient has Medicare and [employer] insurance. Patient has hx of Diabetes, Hypertension, and Dyslipidemia. Patient had a hip replacement in November 2021. Patient presents as A/Ox3, patient and endorse concern that patient has not been able to engage in ADLs recently and has become progressively weaker and no longer ambulating. It is reported that He was using a cane last month and then needed to use a motorized scooter after a [place]. ED provider endorses concern for progressive weakness and seeks consult from Neurology as patient is not presenting with motor skills. COMMISSIONS MANAGER enters room to meet with patient and , they endorse preference for SNF rehab on [facility]. COMMISSIONS MANAGER discusses option for private pay SNF rehab and HH with DME. COMMISSIONS MANAGER provides Medicare choice list. Patient and family endorse primary preference for SNF on [facility] with insurance, COMMISSIONS MANAGER discusses the insurance waiver and that if patient is not accepted with waiver then COMMISSIONS MANAGER will seek out private pay option or home with home health preference. Family indicates understanding. COMMISSIONS MANAGER provides family with DME resources Medicare choice list for SNFs and HH. COMMISSIONS MANAGER calls Cassandra at [facility] and she states her team can review patient for SNF rehab cov[facility] bed, COMMISSIONS MANAGER faxes clinicals and PT evaluation for review. ED provider contacts hospitalist and patient is admitted due to concern for Neuropathy. Plan: Pt to continue to meet with PT, patient admitted to acute care, [facility] reviewing patient for SNF rehab covid waiver. JAVID Ellsworth Discharge Planning/Care Management CM Discharge Assessment Start: 03/17/22 15:01 Freq: Status: Active Protocol: Document 03/17/22 15:02 [facility] (Rec: 03/17/22 15:07 [facility] [id number]) Discharge Planning Assessment Assigned Rubber Off JAVID Aguilera Advance Directives? Yes Advance Directives on File No History Provided By Patient,Family Member,Medical Record Has Patient been admitted in last 30 No days? Prior Living Arrangements House Household Members spouse Type of transporation used prior to Relies on Others admit Independent with ADL's No Is patient alert and oriented? Yes Needs Assistance With Bathing,Grooming,Toileting, Managing Medications,Home Chores / Shopping Comment Family is looking for hospital bed DME for home. Patient/Family Preference Fpc Facility Referrals Initiated [facility]pc If patient plan is SNF: Has PASSR been Not yet completed? Medicare Choice List Provided Yes SNF/HH Preference Patient and family endorse preference for [facility]. Has Agency SNF been contacted Yes Comment [facility] currently reviewing under covid waiver. Review Status In Process Please Provide Date Initial DC 03/17/22 Assessment Was Performed
--- NOTE | 2022-03-17 15:25 | PM.HP.1 ---
History of Present Illness History of Present Illness Date Patient Seen: 03/17/22 Time Patient Seen: 14:00 Chief complaint: Weak limbs, Worsening symptoms Narrative: Mr. Anna is a 71M with PMH DM, HTN, HL who presents to the hospital with progressive weakness. He states he had a hip replacement in November 2021 after which he did get PT and state he began to improve in terns of his strength. Over the last month he has had progressively worsening weakness. He has noted some diarrhea that has been persistent, he was also in the ED in February and diagnosed with diarrhea and discharged. His family states he has been eating less than his usual amount. He has shoulder, neck, and back pain. He notes numbness in his upper extremities distally. He notes difficulty controlling urination and bowel movements. He notes difficulty with lower extremity weakness, he is unable to walk. He also has over the past week been unable to fully close his hands, and has been unable to feed himself. He denies any shortness of breath. No vision changes. No difficulty keepin geyes open. No difficulty chewing and swallowing. In the ED worukp was done, vitals were unremarkable. Labs notable for WBC 8.4, hgb 12.8, plts 324. Creatinine 0.90. Lactate 2.1. LFTs normal. Troponin normal. CK normal. Procal 0.05. COVID negative. UA negative. TSH normal. ESR/CRP normal. B12 normal. Chest xray showed no acute process. CT c-spine with no acute process. CT head with no acute process. Brain MRI with no acute process. Family history: niece with down syndrome, no autoimmune diseases in family Patient History Medical History Diabetes Diminished hearing Easy bruisability GERD (gastroesophageal reflux disease) HLD (hyperlipidemia) Hypertension Knee pain, chronic Morbid obesity with BMI of 40.0-44.9, adult Obesity (BMI 30-39.9) Obstructive sleep apnea of adult Osteoarthritis Peptic ulcer (2006) Sinus drainage Type 2 diabetes mellitus Surgical History H/O vasectomy (1977) History of gastric bypass (1989) History of hernia repair History of orthopedic surgery History of surgery (2010) Hx of cardiac cath (2013) Hx of cholecystectomy (1989) Hx of tonsillectomy Family & Social History Social History: household members spouse Prior Living Arrangements House lives independently Yes caregiver/support person No Safety & Behavioral: Feels Safe in Current Yes Environment Been Physically Hurt or No Threatened By a Person Tobacco & Substance use: Smoking Status Former smoker alcohol intake former Substance Use Type does not use Meds Home Medications and Allergies Home Medications Medication Instructions Recorded Confirmed Type cholecalciferol (vitamin D3) 125 5,000 unit PO DAILY 07/29/18 03/17/22 History mcg (5,000 unit) tablet (Vitamin D3) cyanocobalamin (vitamin B-12) 2,500 mcg sublingual WEEKLY 07/29/18 03/17/22 History 2,500 mcg sublingual tablet (Vitamin B-12) sitagliptin 50 mg-metformin 1,000 1 tab PO BID 07/29/18 03/17/22 History mg tablet (Janumet) tamsulosin 0.4 mg capsule 0.4 mg PO BEDTIME 07/29/18 03/17/22 History atorvastatin 20 mg tablet 20 mg PO QPM 01/13/19 03/17/22 History omeprazole 20 mg capsule,delayed 20 mg PO BEDTIME 01/12/20 03/17/22 History release lidocaine 5 % topical patch 1 patch topical DAILY PRN Pain 11/26/21 03/17/22 History (Scale Score 4-6) loperamide 2 mg tablet 2 mg PO DAILY PRN Diarrhea 11/26/21 03/17/22 History ferrous gluconate 324 mg (37.5 mg 324 mg PO QAM PRN arthritis pain 02/25/22 03/17/22 History iron) tablet folic acid 0.8 mg capsule 0.8 mg PO DAILY 02/25/22 03/17/22 History vitamins A,C,F-fqcu-yxsswg 14,320 1 cap PO DAILY 02/25/22 03/17/22 History unit-226 mg-200 unit capsule (PreserVision AREDS) acetaminophen 325 mg tablet 650 mg PO Q6HR PRN Pain (Scale 03/16/22 03/17/22 History Score 4-6) betamethasone dipropionate 0.05 % 1 applic topical DAILY PRN Rash 03/16/22 03/17/22 History topical cream diclofenac sodium 1 % topical gel 1 ea topical BID PRN arthritis pain 03/16/22 03/17/22 History hydrochlorothiazide 12.5 mg tablet 12.5 mg PO QAM 03/16/22 03/17/22 History lisinopril 10 mg tablet 10 mg PO QAM 03/16/22 03/17/22 History silver sulfadiazine 1 % topical 1 applic topical DAILY 03/16/22 03/17/22 History cream (SSD) Allergies Allergy/AdvReac Type Severity Reaction Status Date / Time clindamycin Allergy Rash Verified 03/16/22 15:36 Review of Systems Review of Systems Narrative: 14 systems reviewed and negative aside from what is noted in HPI Exam Vital Signs (past 8 hours): - 03/17/22 07:30 03/17/22 08:00 03/17/22 08:09 Pulse Rate 84 83 Respiratory Rate 20 Blood Pressure 121/60 Pulse Oximetry 96 96 03/17/22 08:09 03/17/22 08:30 03/17/22 08:31 Pulse Rate 79 77 75 Respiratory Rate Blood Pressure Pulse Oximetry 95 95 94 03/17/22 08:31 03/17/22 09:00 03/17/22 09:48 Pulse Rate 88 82 Respiratory Rate Blood Pressure 122/56 L Pulse Oximetry 96 97 03/17/22 09:52 03/17/22 09:52 03/17/22 10:00 Pulse Rate 81 73 Respiratory Rate Blood Pressure 158/67 H Pulse Oximetry 96 93 03/17/22 10:01 03/17/22 10:01 03/17/22 10:30 Pulse Rate 74 81 Respiratory Rate Blood Pressure 123/58 L Pulse Oximetry 94 96 03/17/22 10:31 03/17/22 10:31 03/17/22 11:00 Pulse Rate 81 78 Respiratory Rate Blood Pressure 133/64 Pulse Oximetry 96 95 03/17/22 11:01 03/17/22 11:01 03/17/22 11:30 Pulse Rate 81 84 Respiratory Rate Blood Pressure 129/72 Pulse Oximetry 96 95 03/17/22 11:31 03/17/22 11:31 03/17/22 12:00 Pulse Rate 82 Respiratory Rate Blood Pressure 114/57 L 116/58 L Pulse Oximetry 95 03/17/22 12:00 03/17/22 12:30 03/17/22 12:30 Pulse Rate 87 96 H Respiratory Rate Blood Pressure 106/55 L Pulse Oximetry 96 94 03/17/22 13:00 03/17/22 13:00 03/17/22 13:30 Pulse Rate 89 Respiratory Rate Blood Pressure 115/57 L 114/58 L Pulse Oximetry 92 03/17/22 13:30 03/17/22 14:00 03/17/22 14:00 Pulse Rate 89 87 Respiratory Rate Blood Pressure 120/61 Pulse Oximetry 92 92 03/17/22 14:30 03/17/22 14:30 03/17/22 15:00 Pulse Rate 86 84 Respiratory Rate Blood Pressure 116/61 Pulse Oximetry 92 93 03/17/22 15:01 03/17/22 15:01 Pulse Rate 94 H Respiratory Rate Blood Pressure 121/61 Pulse Oximetry 95 Oxygen Delivery Method Room Air Narrative Exam Narrative: GEN: no acute distress HEENT: moist mucous membranes, PERRL NECK: trachea midline, no JVD PULM: clear bilaterally, can not speak full sentences CV: regular rate and rhythm, no murmurs ABD: soft, nontender, nondistended, no organomegaly, normal bowel sounds EXT: warm and well perfused with no edema NEURO: no facial droop, equivocal if has slight bilateral droopy eyelids. Sensation decreased in distal upper extremities bilaterally. 4/5 strength in proximal upper extremities, 2/5 strength distally. 3/5 strength lower extremities. Reflexes present and equal in lower extremities Objective Labs Result Diagrams: 03/16/22 15:40 03/16/22 15:40 Labs: Laboratory Results - last 24 hr 03/16/22 03/16/22 03/16/22 15:40 15:40 15:40 WBC 8.4 RBC 4.50 Hgb 12.8 L Hct 38.4 L MCV 85.3 MCH 28.4 MCHC 33.2 RDW 15.6 H Plt Count 324 Neut % (Auto) 68.3 Lymph % (Auto) 20.0 L Centre % (Auto) 7.2 Eos % (Auto) 4.3 H Baso % (Auto) 0.2 Neut # (Auto) 5700 Lymph # (Auto) 1700 Centre # (Auto) 600 Eos # (Auto) 400 Baso # (Auto) 0 ESR Sodium 135 L Potassium 4.5 Chloride 98 Carbon Dioxide 28 BUN 13 Creatinine 0.90 Estimated GFR > 60 BUN/Creatinine Ratio 14.4 Glucose 127 H Lactate 2.1 Calcium 9.6 Total Bilirubin 0.7 AST 20 ALT 22 Alkaline Phosphatase 69 Total Creatine Kinase 60 CK-MB (CK-2) TNP CK-MB (CK-2) Rel Index TNP Troponin I < 0.012 C-Reactive Protein Total Protein 7.6 Albumin 4.3 Globulin 3.3 Albumin/Globulin Ratio 1.3 Lipase 60 Vitamin B12 Procalcitonin TSH SARS-CoV-2 (PCR) 03/16/22 03/16/22 03/16/22 15:40 15:40 15:40 WBC RBC Hgb Hct MCV MCH MCHC RDW Plt Count Neut % (Auto) Lymph % (Auto) Centre % (Auto) Eos % (Auto) Baso % (Auto) Neut # (Auto) Lymph # (Auto) Centre # (Auto) Eos # (Auto) Baso # (Auto) ESR Sodium Potassium Chloride Carbon Dioxide BUN Creatinine Estimated GFR BUN/Creatinine Ratio Glucose Lactate Calcium Total Bilirubin AST ALT Alkaline Phosphatase Total Creatine Kinase CK-MB (CK-2) CK-MB (CK-2) Rel Index Troponin I C-Reactive Protein Total Protein Albumin Globulin Albumin/Globulin Ratio Lipase Vitamin B12 742 Procalcitonin 0.05 TSH 0.717 SARS-CoV-2 (PCR) 03/16/22 03/16/22 03/16/22 15:40 15:40 19:00 WBC RBC Hgb Hct MCV MCH MCHC RDW Plt Count Neut % (Auto) Lymph % (Auto) Centre % (Auto) Eos % (Auto) Baso % (Auto) Neut # (Auto) Lymph # (Auto) Centre # (Auto) Eos # (Auto) Baso # (Auto) ESR 14 Sodium Potassium Chloride Carbon Dioxide BUN Creatinine Estimated GFR BUN/Creatinine Ratio Glucose Lactate 1.4 Calcium Total Bilirubin AST ALT Alkaline Phosphatase Total Creatine Kinase CK-MB (CK-2) CK-MB (CK-2) Rel Index Troponin I C-Reactive Protein < 0.5 Total Protein Albumin Globulin Albumin/Globulin Ratio Lipase Vitamin B12 Procalcitonin TSH SARS-CoV-2 (PCR) 03/16/22 20:15 WBC RBC Hgb Hct MCV MCH MCHC RDW Plt Count Neut % (Auto) Lymph % (Auto) Centre % (Auto) Eos % (Auto) Baso % (Auto) Neut # (Auto) Lymph # (Auto) Centre # (Auto) Eos # (Auto) Baso # (Auto) ESR Sodium Potassium Chloride Carbon Dioxide BUN Creatinine Estimated GFR BUN/Creatinine Ratio Glucose Lactate Calcium Total Bilirubin AST ALT Alkaline Phosphatase Total Creatine Kinase CK-MB (CK-2) CK-MB (CK-2) Rel Index Troponin I C-Reactive Protein Total Protein Albumin Globulin Albumin/Globulin Ratio Lipase Vitamin B12 Procalcitonin TSH SARS-CoV-2 (PCR) Negative Assessment & Plan Assessment & Plan narrative: 1. Progressive weakness -etiology not clear at this point, significant progressing weakness affecting patient's ability to walk, or perform ADLs -MRI head ruled out stroke -with upper and lower extremity involvement and voiding difficulties will rule out c-spine process with MRI -ESR/CRP, TSH, b12, WBC normal -PMR unlikely given profound weakness and normal inflammatory markers -GBS is possibility, though reflexes remain intact -myasthenia appears less likely as no bulbar symptoms -other demyelinating processes would be on differential -check LP, and check CSF protein level -check acetylcholine antibody -RT consult to check baseline NIF, MIP -PT/OT consult 2. BPH -continue flomax 3. Type 2 diabetes -order insulin sliding scale 4. Hypertension -continue home medications CODE: Full Proxy: Anabela Anna, I have utilized all available resources to reconcile the patient's home medications Time Spent With Patient Critical Care time: I spent a total of [] minutes of critical care time on this patient's care today; this time is exclusive of procedural time.
--- NOTE | 2022-03-17 16:22 | PT.IIE ---
Surgical History (Last Reviewed 03/17/22 @ 15:25 by Duarte Mike MD) H/O vasectomy (1977) History of gastric bypass (1989) History of hernia repair History of orthopedic surgery History of surgery (2010) Hx of cardiac cath (2013) Hx of cholecystectomy (1989) Hx of tonsillectomy Medical History (Last Reviewed 03/17/22 @ 15:25 by Duarte Mike MD) Diabetes Diminished hearing Easy bruisability GERD (gastroesophageal reflux disease) HLD (hyperlipidemia) Hypertension Knee pain, chronic Morbid obesity with BMI of 40.0-44.9, adult Obesity (BMI 30-39.9) Obstructive sleep apnea of adult Osteoarthritis Peptic ulcer (2006) Sinus drainage Type 2 diabetes mellitus Physical Therapy Inpatient Evaluation/Re-Eval M1 PT/OT-IP Prior Functional Status Start: 03/17/22 10:34 Freq: Status: Active Protocol: Document 03/17/22 10:35 [facility] (Rec: 03/17/22 10:53 [facility] [id number]) Medical Review Prior Functional Status Medical History Reviewed Yes Communication communication with nursing and Pt's prior to treatment Mobility and Gait pt underwent a total hip replacement on the left hip in November 2021. He had progressed to using a cane but after a vacation to [facility] in February 2022 he has become progressively weaker. He required use of a motorized scooter in [place] and then took a fall once home in landing on his knees. Since this time he has become progressively weaker and is no longer ambulating Activities of Daily Living and IADL's requires assistance for all ADL's Prior Functional Level (Other details) Prior to his vacation in November he was able to ambulate with a cane and was Ind with ADL's Social History Household Members spouse Number of Stairs To Enter/Railing? 3 stairs and no railing M2 PT-IP Current Condition Start: 03/17/22 10:34 Freq: Status: Active Protocol: Document 03/17/22 10:35 [facility] (Rec: 03/17/22 10:53 [facility] [id number]) Physical Therapy Current Condition Current Condition Evaluation Date 03/17/22 Treatment Diagnosis progressive weakness all 4 limbs Onset Date February 2022 M3 PT-IP Subjective Start: 03/17/22 10:34 Freq: Status: Active Protocol: Document 03/17/22 10:35 [facility] (Rec: 03/17/22 10:53 [facility] [id number]) Subjective Physical Therapy Visit Type Type Initial Evaluation Visit Start Time 10:00 Visit Stop Time 10:30 Total Visit Minutes 30 Physical Therapy Visit Comments Patient Comments pt describes progressive weakness in B UE and LE, his right hand is especially affected and he notes he is unable to lift his right hand to scratch his face Patient Goals pt agrees to SNF placement at this time while tests are being run to determine the cause of progressing weakness. His family would prefer a SNF in [facility] Pain Assessment Pain When Pain Assessed At Rest Pain Present Pain Present Pain Reported M4 PT-IP Mobility and Gait Start: 03/17/22 10:34 Freq: Status: Active Protocol: Document 03/17/22 10:35 [facility] (Rec: 03/17/22 10:53 [facility] [id number]) PT-Bed Mobility Assessment Rolling Type of Rolling Roll to Right Level of Assist Maximal Assistance M5 PT-IP Objective Assessments Start: 03/17/22 10:34 Freq: Status: Active Protocol: Document 03/17/22 10:35 [facility] (Rec: 03/17/22 10:53 [facility] [id number]) Orientation Orientation/Cognition Level of Alertness Alert Gross Range of Motion Upper Extremity ROM Assessment Bilaterally Impaired Impairments pt has limited AROM and mobility of both UE with right side more affected. 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 PROM with WFL Lower Extremity ROM Assessment Bilaterally Impaired Impairments Decreased AROM B, able to perform ankle pumps, heel slides to 50 degrees B, this action caused him to c/o neck pain and he then experienced muscle spams stopping the AROM attempts Strength Upper Extremity Strength Assessment Bilaterally Impaired Shoulder 2 Elbow 2 Wrist 2 Hand 2 Lower Extremity Strength Assessment Bilaterally Impaired Hip 3 Knee 3 Ankle 3 Comments Strength Comments pt is unable to take any resistance with MMT in either LE, muscle spasms and neck pain prevent further testing Sensation Assessment Sensation Gross Sensation WNL Muscle Tone Muscle Tone WNL Yes M7 PT-IP Assessment and Plan Start: 03/17/22 10:34 Freq: Status: Active Protocol: Document 03/17/22 10:35 [facility] (Rec: 03/17/22 10:53 [facility] [id number]) PT Summary Assessment and Plan Potential Rehabilitation Potential Fair Status of Condition at Evaluation Evolving Summary Impairments Pain,ROM,Strength,Balance,Bed Mobility,Transfers,Gait, Activity Tolerance Assessment Summary Jasiel is a 71 year old male with past medical history of diabeters, hypertension, dyslipidemia who presents to the ER with progressive weakness of B UE and LE. He underwent a Left RY in November of 2021. Pt reports he did rehab after surgery and got to the place where he was walking with a cane. Then early February he took a vacation to [facility]. It was in [place] that he noticed he was becomming progressively weaker. He needed to use a electric cart while on vacation due to weakness. Once home he took a fall landing on both knees and was seen in the ED on with bronchitis. His weakness has progressed and he notes he is at the point where he is unable to perform bed mobility or transfers on his own. The walker has become difficult to use as well. It takes 2+ people to transfer him at home. With PT consult today Jasiel demonstrated weakness in B UE/ LE. He was unable to hold strength against resistance for UE or LE. He needs max A for bed mobility. He has full sensation UE/LE. Muscle spasms in his Lower legs and neck pain limited his ability to peform a transfer to sit at the edge of the bed. His was present for the second half of his evaluation. Her plan is to obtain a hospital for their home. Both Jasiel and his agreed to SNF rehab at this time if it could be at a facility in [place]. Goals Bed Mobility Goal Minimal Assistance Transfer Goal Minimal Assistance Gait Goal Minimal Assistance Gait Distance 50 feet with fww Other Goals pt is able to ambulate up and down 3 stairs with rails Days to Meet Goals 5 Frequency of Treatment Frequency Of Treatment Once a Day Treatment Plan Physical Therapy Treatment Plan Bed Mobility Training,Transfer Training,Gait Training, Therapeutic Exercise Other Recommendations and Next Treatment bed mobility, transfer Focus training, assess gait with fww if pt is able, consider overhead lift for transfers. Weight Bearing Status Weight Bearing Status Full Weight Bearing Recommendations To Nursing Amount of Assist Needed 2 Person Assist,Mechanical Lift Discharge Recommendations PT Discharge Recommendations SNF Rehab Other Discharge Recommendations Recommend SNF rehab and family requests a placement in [place] Transportation Needs at Discharge Stretcher/Ambulance
[2022-03-17 17:18] LABS: INR 1.2 (0.9-1.3); Prothrombin Time 13.7 SECONDS (10.1-12.7)
[2022-03-17 17:21] LABS: PTT Partial Thromboplastin Tim 33 SECONDS (26-36)
[2022-03-17] MEDS: ACETAMINOPHEN 325 MG TABLET 650 MG PO (21:05)
[2022-03-17] MEDS: TAMSULOSIN 0.4 MG CAPSULE PO (21:05)
[2022-03-17] MEDS: LIDOCAINE PATCH 1 EACH ADH..PATCH TOP (22:16)
[2022-03-17] MEDS: NYSTATIN POWDER 15GM 1 APPLIC TOP (22:17)
[2022-03-18 04:15] VITALS: BP 155/79; PULSE 79; RESP 20; TEMP 36.2; O2SAT 96
[2022-03-18 06:54] LABS: Add Manual Diff / Slide Review NO; Basophils Absolute Auto 0 /uL (0-100); Basophils Percent Auto 0.3 % (0-2); Eosinophils Absolute Auto 400 /uL (0-450); Eosinophils Percent Auto 4.8 % (2-4); Hematocrit 37.1 % (41-53); Hemoglobin 11.9 g/dL (13.5-17.5); Lymphocytes Absolute Auto 1900 /uL (1100-4500); Lymphocytes Percent Auto 25.8 % (25-40); Mean Corpuscular HGB Conc 32.2 % (30-36); Mean Corpuscular Hemoglobin 27.7 PG (26-34); Mean Corpuscular Volume 85.9 fL (80-100); Monocytes Absolute Auto 700 /uL (0-900); Monocytes Percent Auto 9.2 % (3-14); Neutrophils Absolute Auto 4500 /uL (1500-7000); Neutrophils Percent Auto 59.9 % (50-75); Platelet Count 312 X10^3/uL (150-400); Red Blood Cell Count 4.32 X10^6/uL (4.5-5.9); Red Cell Distribution Width 15.6 % (11.6-14.8); White Blood Cell Count 7.5 X10^3/uL (4.5-11.0)
[2022-03-18 07:05] LABS: BUN Creatinine Ratio 16.2 (6-22); Blood Urea Nitrogen 16 mg/dL (9-20); Calcium 9.1 mg/dL (8.4-10.2); Carbon Dioxide 28 mmol/L (22-32); Chloride 100 mmol/L (98-107); Estimated Glomerular Filt Rate > 60 mL/min (>60); Glucose 127 mg/dL (80-110); HEMOLYSIS < 15 (0-50); Potassium 4.1 mmol/L (3.4-5.1); Sodium 137 mmol/L (137-145)
[2022-03-18 08:25] VITALS: BP 147/80; PULSE 74; RESP 18; O2SAT 96
[2022-03-18] MEDS: hydroCHLOROthiazide 25 MG TABLET 12.5 MG PO (08:31)
[2022-03-18] MEDS: FERROUS SULFATE 325 MG TABLET PO (08:31)
[2022-03-18 08:32] VITALS: BP 147/80; PULSE 75; O2SAT 96
[2022-03-18] MEDS: METFORMIN HCL 500 MG TABLET 1000 MG PO (08:32)
[2022-03-18] MEDS: LIDOCAINE PATCH 1 EACH ADH..PATCH TOP (08:32)
[2022-03-18] MEDS: lisinopriL 10 MG TABLET PO (08:32)
[2022-03-18] MEDS: SITAGLIPTIN 50 MG TABLET PO (08:32)
--- NOTE | 2022-03-18 10:34 | OT.IPNOTE ---
Per nurse pt to be having surgery soon, therefore discharge OT eval orders at this time.
[2022-03-18] MEDS: DEXAMETHASONE 10 MG/ML VIAL IV (10:37)
--- NOTE | 2022-03-18 10:57 | PT-IP ANOTE ---
Per MD, d/c PT orders - pt being transferred for cervical surgery. RN, PT, and MUCK MINER aware.
--- NOTE | 2022-03-18 13:35 | DI.MRI.S_ITS ---
PROCEDURE: MR CERVICAL SPINE WO/W CON INDICATIONS: upper extremity weakness TECHNIQUE: Noncontrast sagittal T1 spin echo and T2 fast spin echo, sagittal STIR, foraminal oblique sagittal T2 fast spin echo, axial gradient echo or T2 fast spin echo through the cervical spine. After the administration of contrast, axial and sagittal T1 spin echo with fat saturation through the cervical spine. COMPARISON: [facility], CT, CT CERVICAL SPINE WO CON, 03/16/2022, 18:41. FINDINGS: Image quality: Excellent. Alignment and curvature: There is 4 mm anterolisthesis of C3 on C4, C4 on C5, 4 mm retrolisthesis of C5 on C6, C6 on C7. Marrow: Marrow is normal in overall signal, without suspicious enhancement. Moderate reactive endplate changes are present at C3-4. Spinal cord: Visualized spinal cord has normal size and signal. No cerebellar tonsillar herniation. No abnormal intramedullary enhancement. Paraspinous soft tissues: No paravertebral masses or suspicious enhancement. Discs: Multilevel moderate to severe disc desiccation. C2-3: Minimal disc bulge without spinal stenosis. [id number] bilateral foraminal narrowing with uncovertebral hypertrophy. C3-4: Mild disc bulge with posterior disc osteophyte protrusion. Severe spinal stenosis with canal compression. Moderate bilateral foraminal narrowing with uncovertebral hypertrophy. C4-5: Mild disc bulge with severe spinal stenosis. Moderate to severe bilateral foraminal narrowing with uncovertebral hypertrophy C5-6: Mild disc bulge with severe spinal stenosis. Severe right and moderate to severe left foraminal narrowing with uncovertebral hypertrophy. C6-7: Mild disc bulge with severe spinal stenosis. Severe bilateral foraminal narrowing, right greater than left with uncovertebral hypertrophy. C7-T1: Minimal disc bulge without spinal stenosis. Moderate bilateral foraminal narrowing with uncovertebral hypertrophy. IMPRESSION: Significant multilevel chronic degenerative changes. Multilevel moderate to severe spinal stenosis most notable at C3-4, C4-5, C5-6 and C6-7 secondary to disc bulges/disc osteophyte complexes. Multilevel moderate to severe foraminal narrowing predominantly secondary to uncovertebral arthropathy. Dictated by: Corina Castillo M.D. on 03/18/2022 at 9:13 Approved by: Corina Castillo M.D. on 03/18/2022 at 9:18
[2022-03-18 13:50] VITALS: BP 147/74; PULSE 69; RESP 16; TEMP 37; O2SAT 93
--- NOTE | 2022-03-18 14:56 | PT.IPTN ---
Physical Therapy Treatment Note M2 PT-IP Current Condition Start: 03/17/22 10:34 Freq: Status: Active Protocol: Document 03/17/22 10:35 [facility] (Rec: 03/17/22 10:53 [facility] [id number]) Physical Therapy Current Condition Current Condition Evaluation Date 03/17/22 Treatment Diagnosis progressive weakness all 4 limbs Onset Date February 2022 M3 PT-IP Subjective Start: 03/17/22 10:34 Freq: Status: Active Protocol: Document 03/18/22 14:55 [facility] (Rec: 03/18/22 14:56 [facility] [id number]) Subjective Physical Therapy Visit Type Type Administrative Note Notes SUSTAINABILITY COMMUNICATOR informed PT that per nurse , pt is planning to have cervical surgery. SUSTAINABILITY COMMUNICATOR talked with hospitalist and stated that pt is pending transfer to another facility for cervical surgery and to d/c PT at this time. M7 PT-IP Assessment and Plan Start: 03/17/22 10:34 Freq: Status: Active Protocol: Document 03/18/22 14:55 [facility] (Rec: 03/18/22 14:56 [facility] [id number]) PT Summary Assessment and Plan Frequency of Treatment Frequency Of Treatment Discharge
--- NOTE | 2022-03-18 15:07 | PM.PN.1 ---
Subjective Subjective Date Patient Seen: 03/18/22 Time Patient Seen: 08:00 Interval history: This morning he states he feels his hand functioning is minorly improved. He can not feed himself though. He can not walk. MRI c-spine returned concerning for cord stenosis in the cervical region. Immediately called and discussed with salesperson neckties orthopedic surgeron who recommended transfer and talking to spine surgeon. Spine surgery agreed with transfer as there is no availability urgently for procedure. Requested transfer to [facility] and awaiting call back. Also requested transfer to other hospitals, spoke with salesperson neckties spine surgeon at [facility] who states patient is not an emergent, imminent need for surgery, but does merit surgergy urgently, he agrees with steroids, and recommends continued attempt to transfer to [facility]. Exam Vital Signs (past 8 hours): - 03/18/22 08:32 03/18/22 08:25 03/18/22 08:32 Temperature Pulse Rate 75 74 Respiratory Rate 18 Blood Pressure 147/80 H 147/80 H Pulse Oximetry 96 Oxygen Delivery Method Room Air 03/18/22 08:32 03/18/22 13:50 Temperature 98.6 F Pulse Rate 69 Respiratory Rate 16 Blood Pressure 147/74 H Pulse Oximetry 96 93 Oxygen Delivery Method Room Air Oxygen Delivery Method Room Air Oxygen Flow Rate 0 Narrative Exam Narrative: GEN: no acute distress HEENT: moist mucous membranes, PERRL NECK: trachea midline, no JVD PULM: clear bilaterally, can not speak full sentences CV: regular rate and rhythm, no murmurs ABD: soft, nontender, nondistended, no organomegaly, normal bowel sounds EXT: warm and well perfused with no edema NEURO: no facial droop, equivocal if has slight bilateral droopy eyelids. Sensation decreased in distal upper extremities bilaterally. 4/5 strength in proximal upper extremities, 2/5 strength distally. 3/5 strength lower extremities. Reflexes present and equal in lower extremities Objective Labs Result Diagrams: 03/18/22 06:22 03/18/22 06:22 Labs: Laboratory Results - last 24 hr 03/17/22 03/18/22 03/18/22 17:05 06:22 06:22 WBC 7.5 RBC 4.32 L Hgb 11.9 L Hct 37.1 L MCV 85.9 MCH 27.7 MCHC 32.2 RDW 15.6 H Plt Count 312 Neut % (Auto) 59.9 Lymph % (Auto) 25.8 [place] % (Auto) 9.2 Eos % (Auto) 4.8 H Baso % (Auto) 0.3 Neut # (Auto) 4500 Lymph # (Auto) 1900 [place] # (Auto) 700 Eos # (Auto) 400 Baso # (Auto) 0 PT 13.7 H INR 1.2 APTT 33 Sodium 137 Potassium 4.1 Chloride 100 Carbon Dioxide 28 BUN 16 Creatinine 0.99 Estimated GFR > 60 BUN/Creatinine Ratio 16.2 Glucose 127 H Calcium 9.1 PFSH Medical History Diabetes Diminished hearing Easy bruisability GERD (gastroesophageal reflux disease) HLD (hyperlipidemia) Hypertension Knee pain, chronic Morbid obesity with BMI of 40.0-44.9, adult Obesity (BMI 30-39.9) Obstructive sleep apnea of adult Osteoarthritis Peptic ulcer (2006) Sinus drainage Type 2 diabetes mellitus Surgical History H/O vasectomy (1977) History of gastric bypass (1989) History of hernia repair History of orthopedic surgery History of surgery (2010) Hx of cardiac cath (2013) Hx of cholecystectomy (1989) Hx of tonsillectomy Social History marital status: details: salma Overton, lives in [place] household members: spouse lives independently: Yes caregiver/support person: No housing: house Smoking Status: Former smoker alcohol intake: former Assessment & Plan Assessment & Plan narrative: 1. Progressive weakness -etiology not clear at this point, significant progressing weakness affecting patient's ability to walk, or perform ADLs -MRI head ruled out stroke -with upper and lower extremity involvement and voiding difficulties will rule out c-spine process with MRI -MRI c-spine shows multi-level cervical stenosis with cord compression -started IV steroids -discussed with ortho who recommends urgent transfer for decompression -discussed with salesperson neckties spine surgeon at [facility] who recommends attempt to transfer to [facility], have requested transfer through [facility] transfer center -ESR/CRP, TSH, b12, WBC normal -PMR unlikely given profound weakness and normal inflammatory markers 2. BPH -continue flomax 3. Type 2 diabetes -order insulin sliding scale 4. Hypertension -continue home medications CODE: Full Proxy: Anabela Anna, I have utilized all available resources to reconcile the patient's home medications Time Spent With Patient Critical Care time: I spent a total of [] minutes of critical care time on this patient's care today; this time is exclusive of procedural time.
[2022-03-18] MEDS: ACETAMINOPHEN 325 MG TABLET 650 MG PO (15:30)
[2022-03-18 17:30] VITALS: BP 161/67; PULSE 76; RESP 18; TEMP 36.8; O2SAT 96
[2022-03-18] MEDS: DEXAMETHASONE 4 MG/ML VIAL IV (18:04)
[2022-03-18] MEDS: DEXTROSE 5%-0.9% NS 1,000 ML 84 ML IV (18:04)
--- NOTE | 2022-03-18 18:31 | P.DS_ITS ---
History of Present Illness History of Present Illness Chief complaint: Weak limbs, Worsening symptoms Narrative: Mr. Anna is a 71M with PMH DM, HTN, HL who presents to the hospital with progressive weakness. He states he had a hip replacement in November 2021 after which he did get PT and state he began to improve in terns of his strength. Over the last month he has had progressively worsening weakness. He has noted some diarrhea that has been persistent, he was also in the ED in February and diagnosed with diarrhea and discharged. His family states he has been eating less than his usual amount. He has shoulder, neck, and back pain. He notes numbness in his upper extremities distally. He notes difficulty controlling urination and bowel movements. He notes difficulty with lower extremity weakness, he is unable to walk. He also has over the past week been unable to fully close his hands, and has been unable to feed himself. He denies any shortness of breath. No vision changes. No difficulty keepin geyes open. No difficulty chewing and swallowing. In the ED worukp was done, vitals were unremarkable. Labs notable for WBC 8.4, hgb 12.8, plts 324. Creatinine 0.90. Lactate 2.1. LFTs normal. Troponin normal. CK normal. Procal 0.05. COVID negative. UA negative. TSH normal. ESR/CRP normal. B12 normal. Chest xray showed no acute process. CT c-spine with no acute process. CT head with no acute process. Brain MRI with no acute process. Family history: niece with down syndrome, no autoimmune diseases in family Discharge Providers Provider Date of admission: 03/17/22 14:13 Discharge Date: 03/18/22 Primary care physician: LUIS FERNANDO Lambert Consults: 03/16/22 16:54 Consult to GREENSKEEPER - Weave Defect Charting Clerk Stat Comment: 03/16/22 19:06 Consult to Physical Therapy Evaluate & Treat Comment: evaluate TIFFANIE for SNF placement. Physician Instructions: Evaluate and Treat 03/17/22 15:28 Consult to Physical Therapy Evaluate & Treat Comment: Physician Instructions: Evaluate and Treat Consult to Respiratory Therapy Evaluate & Treat Comment: eval for myasthenia, please perform MIP, NIF Physician Instructions: Evaluate and treat 03/17/22 17:17 Consult to Occupational Therapy Evaluate & Treat Comment: Physician Instructions: Evaluate and treat Discharge provider: Duarte Mike MD Summary Hospital Course Discharge Diagnosis: 1. Progressive weakness, cervical myelopathy, cervical stenosis 2. Type 2 Diabetes 3. BPH 4. Hypertension Hospital Course: Mr. Anna was admitted with progressive weakness progressing to the point of difficulty walking inability to use hands for ADLs like feeding himself. Workup was done and was negative for stroke on MRI. CT c-spine showed no acute process. He was admitted to do further workup including C-spine of his MRI which was unable to be done the night of admission. The next morning MRI c-spine showed concerning findins of cervical stenosis. Discussion was had with installation supervisor orthopedic surgeon on these findings who recommended transfer to [facility] for consideration of surgical decompression. He is planned to transfer to [facility] ED with Dr. Bailey and then undergo neurosurgical consult. He was started on IV dexamethasone 10mg the morning of 03/18, and subsequently ordered for 4mg IV q6. He was made NPO after breakfast on morning of 03/18. He was placed on d5ns for fluids while NPO. Exam Vital Signs (past 8 hours): - 03/18/22 13:50 Temperature 98.6 F Pulse Rate 69 Respiratory Rate 16 Blood Pressure 147/74 H Pulse Oximetry 93 Oxygen Delivery Method Room Air Oxygen Flow Rate 0 Narrative Exam Narrative: GEN: no acute distress HEENT: moist mucous membranes, PERRL NECK: trachea midline, no JVD PULM: clear bilaterally, can not speak full sentences CV: regular rate and rhythm, no murmurs ABD: soft, nontender, nondistended, no organomegaly, normal bowel sounds EXT: warm and well perfused with no edema NEURO: no facial droop, equivocal if has slight bilateral droopy eyelids. Sensation decreased in distal upper extremities bilaterally. 3/5 strength in proximal upper extremities, 2/5 strength distally. 3/5 strength lower extremities. Reflexes present and equal in lower extremities Objective Labs Result Diagrams: 03/18/22 06:22 03/18/22 06:22 Labs: Laboratory Results - last 24 hr 03/18/22 03/18/22 06:22 06:22 WBC 7.5 RBC 4.32 L Hgb 11.9 L Hct 37.1 L MCV 85.9 MCH 27.7 MCHC 32.2 RDW 15.6 H Plt Count 312 Neut % (Auto) 59.9 Lymph % (Auto) 25.8 [place] % (Auto) 9.2 Eos % (Auto) 4.8 H Baso % (Auto) 0.3 Neut # (Auto) 4500 Lymph # (Auto) 1900 [place] # (Auto) 700 Eos # (Auto) 400 Baso # (Auto) 0 Sodium 137 Potassium 4.1 Chloride 100 Carbon Dioxide 28 BUN 16 Creatinine 0.99 Estimated GFR > 60 BUN/Creatinine Ratio 16.2 Glucose 127 H Calcium 9.1 PFSH Medical History Diabetes Diminished hearing Easy bruisability GERD (gastroesophageal reflux disease) HLD (hyperlipidemia) Hypertension Knee pain, chronic Morbid obesity with BMI of 40.0-44.9, adult Obesity (BMI 30-39.9) Obstructive sleep apnea of adult Osteoarthritis Peptic ulcer (2006) Sinus drainage Type 2 diabetes mellitus Surgical History H/O vasectomy (1977) History of gastric bypass (1989) History of hernia repair History of orthopedic surgery History of surgery (2010) Hx of cardiac cath (2013) Hx of cholecystectomy (1989) Hx of tonsillectomy Social History marital status: details: salma Overton, lives in [place] household members: spouse lives independently: Yes caregiver/support person: No housing: house Smoking Status: Former smoker alcohol intake: former Discharge Plan Discharge Plan Disposition: Xfer Acute Care Hospital Discharge orders & Medications Follow up/Referrals: Janet Garcia ARNP [Primary Care Provider] - Discharge Data Primary Care Provider: Janet Garcia Attending Provider: Duarte Mike
[2022-03-18 20:45] VITALS: BP 139/70; PULSE 73; RESP 16; TEMP 36.2; O2SAT 96
--- NOTE | 2022-03-18 21:08 | PC.NURSE ---
Patient left at this time via ambulance to be transfered to [facility] for surgery. Patient denies any pain at this time, pt denies SOB. Report given to ambulance crew, here and aware of transfer. Pt belongings sent with ambulance crew.
[2022-03-20 14:08] LABS: Acetylcholine Rec Blocking AB 20 % (0-25)
== END 2022-03-18 21:08 | disposition short-term general hospital (02) ==
LOC: ED 03-17 14:09 → AC 03-17 14:14
PROVIDERS: Emergency Medicine; Student in an Organized Health Care Education/Training Program; Admitting Provider Internal Medicine; Emergency Provider Emergency Medicine; Family Provider Physician Assistant; PCP Nurse Practitioner Family; Referring Provider Emergency Medicine; Visit Provider Internal Medicine
DX: R53.1 Weakness (principal); G95.9 Disease of spinal cord, unspecified; M48.02 Spinal stenosis, cervical region; I10 Essential (primary) hypertension; E11.9 Type 2 diabetes mellitus without complications; E78.5 Hyperlipidemia, unspecified; Z79.84 Long term (current) use of oral hypoglycemic drugs; N40.0 Benign prostatic hyperplasia without lower urinary tract symptoms; Z20.822 Contact with and (suspected) exposure to COVID-19
CPT/HCPCS: 36415; 51798; 70450; 70553; 71045; 72125; 72156; 80048; 80053; 81003; 82550; 82607; 82962; 83519; 83605; 83690; 84145; 84443; 84484; 85025; 85610; 85651; 85730; 86140; 87635; 93005; 93010; 94660; 96361; 96374; 96376; 97162; 99285; C9803; G0378; J1100; J1815